=== PATIENT | female | born 1950 | race Caucasian/White ===

== ENCOUNTER 2018-02-19 19:05 | Emergency (ER) | payer OTHER ==
--- OUTSIDE RECORDS SUMMARY | 2018-02-19 19:08 | XMS REPORT | Clinical Summary ---
:1950 Author Organization [facility] Address [address] [place] [address] Care Team Providers Name Role Phone Efe Hernandez MD Primary Care Provider Allergies Active Allergy Reactions Severity Noted Date Comments Penicillins 10/21/2017 As a baby Current Medications Prescription Sig. Disp. Refills Start Date End Date Status BYSTOLIC 10 mg Take 10 mg by 3 07/29/2017 Active tablet mouth every morning. zolpidem (AMBIEN) 5 TAKE 1 TABLET 2 09/11/2017 Active MG tablet BY MOUTH AT BEDTIME NEEDED FOR INSOMIA SPIRIVA WITH INHALE THE 3 08/18/2017 Active HANDIHALER 18 mcg CONTENTS OF 1 per inhalation CAPSULE BY capsule MOUTH DAILY morning LORAZepam (ATIVAN) Take 1 mg by Active 1 MG tablet mouth as needed. fluticasone Inhale 2 puffs Active (FLOVENT HFA) 110 every morning. mcg/actuation inhaler guaifenesin/pseudoe Take by mouth. Active phedrne HCl (MUCINEX D ORAL) disopyramide Take 150 mg by Active phosphate (NORPACE) mouth daily. 150 MG capsule verapamil sustained Take 180 mg by Active release (CALAN-SR) mouth nightly. 180 MG SR tablet pitavastatin Take 4 mg by Active calcium (LIVALO) 2 mouth nightly. mg tablet ezetimibe (ZETIA) Take 10 mg by Active 10 mg tablet mouth daily. acetaminophen-codei Take 1 tablet 0 09/29/2017 Discontinued ne (TYLENOL WITH by mouth every 8 CODEINE #3) 300-30 4 (four) mg per tablet hours. disopyramide Take 150 mg by Discontinued phosphate (NORPACE) mouth every 8 150 MG capsule morning. verapamil sustained Take 180 mg by Discontinued release (CALAN-SR) mouth nightly. 8 180 MG SR tablet pitavastatin Take 4 mg by Discontinued calcium (LIVALO) 4 mouth nightly. 8 mg tablet ezetimibe (ZETIA) Take 10 mg by Discontinued 10 mg tablet mouth nightly. 8 traMADol (ULTRAM) Take 50 mg by Discontinued 50 mg tablet mouth every 6 8 (six) hours as needed for moderate pain. aspirin (ECOTRIN) Take 1 tablet 30 tablet 0 11/04/2017 325 MG enteric (325 mg total) 8 coated tablet by mouth daily for 30 days. celecoxib Take 1 capsule 28 capsule 0 11/04/2017 (CeleBREX) 100 MG (100 mg total) 8 capsule by mouth 2 (two) times a day for 14 days. methocarbamol Take 1 tablet 60 tablet 0 11/04/2017 (ROBAXIN) 500 MG (500 mg total) 8 tablet by mouth 3 (three) times a day as needed for muscle spasms for up to 14 days. traMADol (ULTRAM) Take 2 tablets 60 tablet 0 11/04/2017 50 mg tablet (100 mg total) 8 by mouth every 6 (six) hours as needed for moderate pain for up to 14 days. HYDROcodone-acetami Take 1 tablet 40 tablet 0 11/06/2017 nophen (NORCO) by mouth every 8 5-325 mg per tablet 4 (four) hours as needed for moderate pain for up to 14 days. Max Daily Amount: 6 tablets traMADol (ULTRAM) Take 1 tablet 70 tablet 0 12/02/2017 50 mg tablet (50 mg total) 8 by mouth every 4 (four) hours as needed for moderate pain for up to 30 days. traMADol (ULTRAM) Take 1 tablet 70 tablet 0 2018 50 mg (50 mg total) 8 tabletIndications: by mouth every Right elbow pain 4 (four) hours as needed for moderate pain for up to 30 days. methocarbamol Take 1 tablet 120 tablet 0 2018 (ROBAXIN) 500 MG (500 mg total) 8 tabletIndications: by mouth 4 Right elbow pain (four) times a day for 30 days. traMADol (ULTRAM) Take 1 tablet 70 tablet 0 01/13/2018 50 mg (50 mg total) 8 tabletIndications: by mouth every Right elbow pain 4 (four) hours as needed for moderate pain for up to 30 days. methocarbamol Take 1 tablet 120 tablet 0 01/13/2018 (ROBAXIN) 500 MG (500 mg total) 8 tabletIndications: by mouth 4 Right elbow pain (four) times a day for 30 days. 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 Encounters Date Type Specialty Care Team Description 02/06/2018 Abstract Orthopedic Surgery Naresh Haskins MD 02/02/2018 Office Visit Orthopedic Surgery Naresh Haskins, Left elbow pain (Primary Dx) 02/02/2018 Ancillary Orders Orthopedic Surgery Naresh Haskins Left elbow pain 01/13/2018 Orders Only Orthopedic Surgery Gianni Right elbow pain REBECCA Hennessy (Primary Dx) 2018 Orders Only Orthopedic Surgery Gianni, Right elbow pain REBECCA Hennessy (Primary Dx) 2018 Telephone Orthopedic Naresh Nugent MD 12/17/2017 Office Visit Orthopedic Surgery Naresh Haskins, Right elbow pain (Primary Dx); Arthritis of elbow, right 12/05/2017 Telephone Orthopedic Surgery Minoo Archer MA 12/02/2017 Telephone Orthopedic Naresh Nugent MD 12/02/2017 Orders Only Orthopedic Surgery Minoo Archer MA 12/01/2017 Telephone Orthopedic Naresh Nugent MD 12/01/2017 Telephone Orthopedic Naresh Nugent MD 11/25/2017 Abstract Orthopedic Naresh Nugent MD 11/24/2017 Telephone Orthopedic Naresh Nugent MD 11/19/2017 Telephone Orthopedic Naresh Nugent MD 11/17/2017 Office Visit Orthopedic Surgery Naresh Haskins, Right elbow pain (Primary Dx); Left elbow pain; Arthritis of elbow, right 11/17/2017 Ancillary Orders Orthopedic Surgery Naresh Haskins, Left elbow pain 11/11/2017 Abstract Orthopedic Surgery Naresh Haskins MD 11/10/2017 Abstract Orthopedic Surgery Naresh Haskins MD 11/10/2017 Abstract Orthopedic Surgery Naresh Haskins MD 11/06/2017 Patient Outreach Yane Eduardo RN 11/03/2017 - Hospital Encounter Orthopedic Surgery Naresh Haskins, Arthritis of elbow, 11/06/2017 Jamey Monsalve MD 11/03/2017 Anesthesia Event Orthopedic Surgery Marvin Lancaster MD 11/03/2017 Procedure Pass Orthopedic Surgery 11/03/2017 Surgery Orthopedic Surgery Naresh Haskins, ARTHROPLASTY, ELBOW, MD TOTAL 10/30/2017 Procedure Pass Orthopedic Surgery 10/29/2017 Telephone Orthopedic Surgery Minoo Archer MA 10/29/2017 Abstract Orthopedic Surgery Naresh Haskins MD 10/29/2017 Abstract Orthopedic Surgery Naresh Haskins MD 10/29/2017 Telephone Orthopedic Surgery Minoo Archer MA 10/24/2017 Hospital Encounter Radiology Naresh Haskins, Preop examination 10/24/2017 Pre-Admit Testing Pre-Admission Naresh Haskins, Pre-op testing Appointment Testing (Primary Dx) 10/24/2017 Telephone Orthopedic Surgery Naresh Haskins MD 10/24/2017 Transcribe Orders Access Naresh Haskins, Preop examination (Primary Dx) 10/23/2017 Procedure Pass Orthopedic Surgery 10/14/2017 Abstract Orthopedic Surgery Naresh Haskins MD 10/08/2017 Office Visit Orthopedic Surgery Naresh Haskins, Arthritis of right MD elbow (Primary Dx) 06/23/2017 Transcribe Orders Matt Crawford obliterative HMD Rosanna bronchiolitis (Primary Dx) after 02/18/2017 Family History Medical History Relation Name Comments Heart disease Father Hypertension Mother Diabetes Sister Relation Name Status Comments Father Mother Sister Alive Social History Tobacco Use Types Packs/Day Years Used Date Never Smoker Smokeless Tobacco: Never Used Alcohol Use Drinks/Week oz/Week Comments Yes 7 Glasses of wine 4.2 Sex Assigned at Date Recorded Not on file Last Filed Vital Signs Vital Sign Reading Time Taken Blood Pressure 143/84 11/06/2017 8:02 AM CDT Pulse 82 11/06/2017 8:02 AM CDT Temperature 35.7 C (96.3 F) 11/06/2017 8:02 AM CDT Respiratory Rate 16 11/06/2017 8:02 AM CDT Oxygen Saturation 98% 11/06/2017 8:02 AM CDT Inhaled Oxygen Concentration - - Weight 57.2 kg (126 lb 2 oz) 11/03/2017 6:58 AM CDT Height 162.6 cm (5' 4") 11/03/2017 6:58 AM CDT Body Mass Index 21.65 11/03/2017 6:58 AM CDT Plan of Treatment Health Maintenance Due Date Last Done Comments BREAST CANCER SCREENING 1999 COLON CANCER SCREENING 1999 SHINGRIX VACCINE (#1) 1999 ZOSTER VACCINE 2009 PNEUMOCOCCAL POLYSACCHARIDE VACCINE AGE 65 AND OVER 2014 PNEUMOCOCCAL-13 2014 INFLUENZA VACCINE 02/11/2018 Implants Implanted Type Area Tube Test Technician Device Expiration Model / Identifier Date Serial / Lot Component Humrl Total Elbw Sys Sm 4in [place] Herbierey - [id number] Distal Joint N/A: N/A [employer] 08/13/2022 [id number] / Implanted: Qty: 1 on 11/03/2017 by Naresh Haskins MD Orthopedic / Implants [id number] C/M Ulna Assembly 3in Xsml Rt - [id number] IMPLANT Right: [employer] 10/11/2022 [id number] / Implanted: Qty: 1 on 11/03/2017 by Naresh Haskins MD DEVICES Humerus / [id number] Cement Bone Full-Dose Premxd W/ Tobr Simplex P Pack 10/Ea - [id number] Surgical Bone Right: GIULIA 04/12/2019 [id number] / Implanted: 11/03/2017 (Quantity not on file) Cement Humerus ORTHOPEDICS / HIPS-KNEES [id number] Cement Bone Full-Dose Premxd W/ Tobr Simplex P Pack 10/Ea - [id number] Surgical Bone Right: GIULIA 04/12/2019 [id number] / Implanted: 11/03/2017 (Quantity not on file) Cement Humerus ORTHOPEDICS / HIPS-KNEES [id number] Procedures Procedure Name Priority Date/Time Associated Comments Diagnosis ESTIMATED GFR Routine 11/06/2017 4:26 Results for this AM CDT procedure are in the results section. B NATRIURETIC PEPTIDE Routine 11/06/2017 4:26 Results for this AM CDT procedure are in the results section. BASIC METABOLIC PANEL Routine 11/06/2017 4:26 Results for this AM CDT procedure are in the results section. PROTHROMBIN TIME WITH Routine 11/06/2017 4:26 Results for this INR AM CDT procedure are in the results section. PARTIAL THROMBOPLASTIN Routine 11/06/2017 4:26 Results for this TIME (PTT) AM CDT procedure are in the results section. BASIC METABOLIC PANEL Routine 11/05/2017 3:00 Results for this PM CDT procedure are in the results section. ESTIMATED GFR Routine 11/05/2017 3:00 Results for this PM CDT procedure are in the results section. ESTIMATED GFR Routine 11/05/2017 4:57 Results for this AM CDT procedure are in the results section. MAGNESIUM LEVEL Routine 11/05/2017 4:57 Results for this AM CDT procedure are in the results section. B NATRIURETIC PEPTIDE Routine 11/05/2017 4:57 Results for this AM CDT procedure are in the results section. PROTHROMBIN TIME WITH Routine 11/05/2017 4:57 Results for this INR AM CDT procedure are in the results section. PARTIAL THROMBOPLASTIN Routine 11/05/2017 4:57 Results for this TIME (PTT) AM CDT procedure are in the results section. BASIC METABOLIC PANEL Routine 11/05/2017 4:57 Results for this AM CDT procedure are in the results section. CBC WITH PLATELET AND Routine 11/05/2017 4:57 Results for this DIFFERENTIAL AM CDT procedure are in the results section. ESTIMATED GFR STAT 11/04/2017 10:34 Results for this PM CDT procedure are in the results section. BASIC METABOLIC PANEL STAT 11/04/2017 10:34 Results for this PM CDT procedure are in the results section. CT HEAD WO CONTRAST STAT 11/04/2017 10:23 Results for this PM CDT procedure are in the results section. ESTIMATED GFR STAT 11/04/2017 6:01 Results for this PM CDT procedure are in the results section. BASIC METABOLIC PANEL STAT 11/04/2017 6:01 Results for this PM CDT procedure are in the results section. ESTIMATED GFR Routine 11/04/2017 1:00 Results for this PM CDT procedure are in the results section. BASIC METABOLIC PANEL Routine 11/04/2017 1:00 Results for this PM CDT procedure are in the results section. OSMOLALITY, URINE Routine 11/04/2017 12:05 Results for this PM CDT procedure are in the results section. SODIUM LEVEL, URINE, Routine 11/04/2017 12:05 Results for this RANDOM PM CDT procedure are in the results section. ESTIMATED GFR Routine 11/04/2017 4:00 Results for this AM CDT procedure are in the results section. B NATRIURETIC PEPTIDE Routine 11/04/2017 4:00 Results for this AM CDT procedure are in the results section. PROTHROMBIN TIME WITH Routine 11/04/2017 4:00 Results for this INR AM CDT procedure are in the results section. PARTIAL THROMBOPLASTIN Routine 11/04/2017 4:00 Results for this TIME (PTT) AM CDT procedure are in the results section. BASIC METABOLIC PANEL Routine 11/04/2017 4:00 Results for this AM CDT procedure are in the results section. CBC WITH PLATELET AND Routine 11/04/2017 4:00 Results for this DIFFERENTIAL AM CDT procedure are in the results section. SURGICAL PATHOLOGY Routine 11/03/2017 10:07 Results for this REQUEST AM CDT procedure are in the results section. OH AN PERIPHERAL BLOCK Routine 11/03/2017 8:01 POST-OP PAIN AM CDT Procedure Note - Phill Natarajan MD - 11/03/2017 8:01 AM CDT Peripheral Block Performed by: PHILL NATARAJAN Authorized by: PHILL NATARAJAN Patient Location: Block room Start Time: 11/03/2017 7:32 AM End Time: 11/03/2017 7:41 AM Reason for Block: at surgeon's request, post-op pain management Staff: Anesthesiologist: PHILL NATARAJAN Performed by: Anesthesiologist Preprocedure: patient identified, IV checked, site and side verified, risks and benefits discussed, procedure verified, surgical consent complete, patient position confirmed, monitors and equipment checked, pre-op evaluation complete and site marked Time Out Performed: 11/03/2017 7:25 AM Peripheral Nerve Block: Patient Position: Supine Prep: ChloraPrep and patient draped Monitoring: Blood pressure monitoring, continuous pulse oximetry and heart rate Block Type: Supraclavicular Laterality: Right Injection Technique: Catheter insertion Procedures: ultrasound guided Ultrasound documentation: Images saved on hard disk, images saved on portable media, still images obtained and printed/placed in chart Local Infiltration (See MAR for details): Ropivacaine Needle: Needle Type: Pajunk Needle Gauge: 19 G Needle Length: 10 cm Catheter at Skin Depth: 6 cm Assessment: Injection Assessment: Visualized needle/local anesthetic surrounding nerve , visualized pertinent vascular structures and nerves, needle tip visualized at all times during injection of medication, intermittent aspiration during local anesthetic administration and no symptoms of intraneural/intravenous injection Paresthesia Pain: Immediately resolved Heart Rate Change: No Slow Fractionated Injection: Yes Block outcome: No apparent complications, patient comfortable and patient tolerated procedure well Notes: Pt converseing throughout with transietn paresthesia with passing of catheter immediately resolved ARTHROPLASTY, ELBOW, TOTAL 11/03/2017 7:30 AM CDT Arthritis of elbow, right Special Needs GEN REG BLOCK, SUPINE MICHAEL BIOMET TYPE AND SCREEN Routine 11/03/2017 6:20 AM Results for this CDT procedure are in the results section. POC GLUCOSE Routine 11/03/2017 6:18 AM Results for this CDT procedure are in the results section. XR CHEST 2 VW Routine 10/24/2017 11:53 AM Preop examination Results for this CDT procedure are in the results section. ECG PRE/POST OP Routine 10/24/2017 10:58 AM Pre-op testing Results for this CDT procedure are in the results section. ESTIMATED GFR Routine 10/24/2017 10:31 AM Results for this CDT procedure are in the results section. URINALYSIS SCREEN AND Routine 10/24/2017 10:31 AM Pre-op testing Results for this MICROSCOPY, WITH REFLEX CDT procedure are in TO CULTURE the results section. HEMOGLOBIN A1C Routine 10/24/2017 10:31 AM Pre-op testing Results for this CDT procedure are in the results section. PROTHROMBIN TIME WITH Routine 10/24/2017 10:31 AM Pre-op testing Results for this INR CDT procedure are in the results section. PARTIAL THROMBOPLASTIN Routine 10/24/2017 10:31 AM Pre-op testing Results for this TIME (PTT) CDT procedure are in the results section. COMPREHENSIVE METABOLIC Routine 10/24/2017 10:31 AM Pre-op testing Results for this PANEL CDT procedure are in the results section. HC COMPLETE BLD COUNT Routine 10/24/2017 10:31 AM Pre-op testing Results for this W/AUTO DIFF CDT procedure are in the results section. URINE CULTURE Routine 10/24/2017 10:30 AM Results for this CDT procedure are in the results section. after 02/18/2017 Results Estimated GFR (11/06/2017 4:26 AM)Only the most recent of8 resultswithin the time period is included. GFR Non Af Amer >90 mL/min/1.73 m2 [facility] DEPARTMENT OF PATHOLOGY AND [employer] MEDICINE GFR Af Amer >90 mL/min/1.73 m2 [facility] DEPARTMENT OF Comment: PATHOLOGY AND [facility] Chronic kidney disease: <60 mL/min/1.73m2 MEDICINE Kidney failure: <15 mL/min/1.73m2 The estimated GFR is calculated from the IDMS-traceable Modification of Diet in Renal Disease Equation. The accuracy of the calculation is poor when the creatinine is normal. Calculated values >90 mL/min/1.73m2 are not reported. This equation has not been validated in children (<18 years), women, the elderly (>70 years), or ethnic groups other than Caucasians and Americans. Specimen Plasma specimen Performing Organization Address City/State/[facility] Phone Number [facility] DEPARTMENT OF PATHOLOGY AND [address] [place] [address] Partial thromboplastin time, activated (11/06/2017 4:26 AM)Only the most recent of4 resultswithin the time period is included. PTT 29.6 23.0 - 36.0 sec [facility] DEPARTMENT OF PATHOLOGY Comment: AND [employer] MEDICINE PTT therapeutic range for unfractionated heparin is 61.0-112.0 seconds which corresponds to Anti-Xa 0.3-0.7 U/ml. Specimen Blood Performing Organization Address City/[facility]/Zipcode Phone Number [facility] DEPARTMENT OF PATHOLOGY AND [address] [place] [phone] [facility] Prothrombin time with INR (11/06/2017 4:26 AM)Only the most recent of4 resultswithin the time period is included. Prothrombin time 13.5 12.0 - 15.0 sec [facility] DEPARTMENT OF PATHOLOGY AND [employer] MEDICINE INR 1.0 [facility] DEPARTMENT OF Comment: PATHOLOGY AND GENOMIC The International Normalized Ratio (INR) is a therapeutic MEDICINE monitoring tool for patients who are stable on oral anticoagulant therapy. An INR of 2.0-3.0 is suggested for deep vein thrombosis/pulmonary embolism. Specimen Blood Performing Organization Address [facility] Phone Number [facility] DEPARTMENT OF PATHOLOGY AND [address] [place] [address] B natriuretic peptide (11/06/2017 4:26 AM)Only the most recent of3 resultswithin the time period is included. BNP 391 (H) 0 - 100 pg/mL [facility] DEPARTMENT OF PATHOLOGY AND GENOMIC MEDICINE Specimen Blood Performing Organization Address [facility] Centercode Phone Number [facility] DEPARTMENT OF PATHOLOGY AND [address] [place] [address] Basic metabolic panel (11/06/2017 4:26 AM)Only the most recent of7 resultswithin the time period is included. Sodium 133 (L) 135 - 148 mEq/L [facility] DEPARTMENT OF PATHOLOGY AND GENOMIC MEDICINE Potassium 3.9 3.5 - 5.0 mEq/L [facility] DEPARTMENT OF PATHOLOGY AND GENOMIC MEDICINE Chloride 96 (L) 98 - 112 mEq/L [facility] DEPARTMENT OF PATHOLOGY AND GENOMIC MEDICINE CO2 28 24 - 31 mEq/L [facility] DEPARTMENT OF PATHOLOGY AND GENOMIC MEDICINE Anion gap 9 7 - 15 mEq/L [facility] DEPARTMENT OF PATHOLOGY Comment: AND [facility] Starting from October , anion gap calculation no longer incorporates potassium. Please note the change. BUN 10 8 - 23 mg/dL [facility] DEPARTMENT OF PATHOLOGY AND GENOMIC MEDICINE Creatinine 0.6 0.5 - 0.9 mg/dL [facility] DEPARTMENT OF PATHOLOGY AND GENOMIC MEDICINE Glucose 109 (H) 65 - 99 mg/dL [facility] DEPARTMENT OF PATHOLOGY AND GENOMIC MEDICINE Calcium 8.8 8.8 - 10.2 mg/dL [facility] DEPARTMENT OF PATHOLOGY AND GENOMIC MEDICINE Specimen Plasma specimen Performing Organization Address [facility] Phone Number [facility] DEPARTMENT OF PATHOLOGY AND [address] [place] [address] CBC with platelet and differential (11/05/2017 4:57 AM)Only the most recent of3 resultswithin the time period is included. WBC 8.48 4.50 - 11.00 k/uL [facility] DEPARTMENT OF PATHOLOGY AND GENOMIC MEDICINE RBC 3.26 (L) 4.20 - 5.50 m/uL [facility] DEPARTMENT OF PATHOLOGY AND GENOMIC MEDICINE HGB 11.5 (L) 12.0 - 16.0 g/dL [facility] DEPARTMENT OF PATHOLOGY AND GENOMIC MEDICINE HCT 33.1 (L) 37.0 - 47.0 % [facility] DEPARTMENT OF PATHOLOGY AND GENOMIC MEDICINE MCV 101.5 (H) 82.0 - 100.0 fL [facility] DEPARTMENT OF PATHOLOGY AND GENOMIC MEDICINE MCH 35.3 (H) 27.0 - 34.0 pg [facility] DEPARTMENT OF PATHOLOGY AND GENOMIC MEDICINE MCHC 34.7 31.0 - 37.0 g/dL [facility] DEPARTMENT OF PATHOLOGY AND GENOMIC MEDICINE RDW - SD 49.1 37.0 - 55.0 fL [facility] DEPARTMENT OF PATHOLOGY AND GENOMIC MEDICINE MPV 9.5 8.8 - 13.2 fL [facility] DEPARTMENT OF PATHOLOGY AND GENOMIC MEDICINE Platelet count 207 150 - 400 k/uL [facility] DEPARTMENT OF PATHOLOGY AND GENOMIC MEDICINE Nucleated RBC 0.00 /100 WBC [facility] DEPARTMENT OF PATHOLOGY AND GENOMIC MEDICINE Neutrophils 78.4 (H) 39.0 - 69.0 % [facility] DEPARTMENT OF PATHOLOGY AND GENOMIC MEDICINE Lymphocytes 12.0 (L) 25.0 - 45.0 % [facility] DEPARTMENT OF PATHOLOGY AND GENOMIC MEDICINE Monocytes 8.8 0.0 - 10.0 % [facility] DEPARTMENT OF PATHOLOGY AND GENOMIC MEDICINE Eosinophils 0.2 0.0 - 5.0 % [facility] DEPARTMENT OF PATHOLOGY AND GENOMIC MEDICINE Basophils 0.2 0.0 - 1.0 % [facility] DEPARTMENT OF PATHOLOGY AND GENOMIC MEDICINE Immature granulocytes 0.4Comment: 0.0 - 1.0 % [facility] DEPARTMENT OF "Immature PATHOLOGY AND GENOMIC granulocytes" MEDICINE (promyelocytes, myelocytes, metamyelocytes) Specimen Blood Performing Organization Address City/[facility]ercode Phone Number [facility] DEPARTMENT OF PATHOLOGY AND [address] [place] [phone] [facility] Magnesium level (11/05/2017 4:57 AM) Magnesium 1.7 1.6 - 2.4 mg/dL [facility] DEPARTMENT OF PATHOLOGY AND GENOMIC MEDICINE Specimen Plasma specimen Performing Organization Address City/[facility] Centercode Phone Number [facility] DEPARTMENT OF PATHOLOGY AND [address] [place] [phone] [facility] CT Head Wo Contrast (11/04/2017 10:23 PM) Narrative Performed At EXAMINATION:CT HEAD WO CONTRAST HM RADIANT CLINICAL HISTORY:confusion COMPARISON:None. TECHNIQUE: Noncontrast head CT performed using radiation dose reduction techniques.Technical factors are evaluated and adjusted to ensure appropriate moderation of exposure.Automated dose management technology is applied to adjust radiation exposure while achieving a diagnostic quality image. FINDINGS: No evidence of acute intracranial hemorrhage, mass, mass effect, midline shift, or acute infarct. Minimal suspected chronic microvascular ischemic changes within the supratentorial white matter. The ventricles are normal in size and configuration for age. Mild to moderate global cerebral andcerebellar volume loss. Arteriosclerosis of the cavernous and paraclinoid internal carotid arteries. Basal cisterns are clear. Calvarium is intact. Orbits are normal in appearance. No significant sinus inflammatory changes. Small left mastoid tip effusion. IMPRESSION: 1. No CT evidence of acute intracranial abnormality. [id number] Procedure Note Interface, Radiology Results Incoming - 11/04/2017 10:30 PM CDT EXAMINATION: CT HEAD WO CONTRAST CLINICAL HISTORY: confusion COMPARISON: None. TECHNIQUE: Noncontrast head CT performed using radiation dose reduction techniques. Technical factors are evaluated and adjusted to ensure appropriate moderation of exposure. Automated dose management technology is applied to adjust radiation exposure while achieving a diagnostic quality image. FINDINGS: No evidence of acute intracranial hemorrhage, mass, mass effect, midline shift , or acute infarct. Minimal suspected chronic microvascular ischemic changes within the supratentorial white matter. The ventricles are normal in size and configuration for age. Mild to moderate global cerebral and cerebellar volume loss. Arteriosclerosis of the cavernous and paraclinoid internal carotid arteries. Basal cisterns are clear. Calvarium is intact. Orbits are normal in appearance. No significant sinus inflammatory changes. Small left mastoid tip effusion. IMPRESSION: 1. No CT evidence of acute intracranial abnormality. [facility]-[id number] Performing Organization Address [facility] Phone Number [facility] [address] [place] [address] Sodium level, urine, random (11/04/2017 12:05 PM) Sodium, urine, random 105 mEq/L [facility] DEPARTMENT OF PATHOLOGY AND GENOMIC MEDICINE Specimen Urine Performing Organization Address [facility] Phone Number [facility] DEPARTMENT OF PATHOLOGY AND [address] [place] [phone] GENOMIC MEDICINE Osmolality, urine (11/04/2017 12:05 PM) Osmolality, urine 333 50 - 1,400 mOsm/kg [facility] DEPARTMENT OF PATHOLOGY AND GENOMIC MEDICINE Specimen Urine Performing Organization Address [facility]/State/Zipcode Phone Number [facility] DEPARTMENT OF PATHOLOGY AND [address] [place] [address] GENOMIC [facility] Surgical pathology request (11/03/2017 10:07 AM) [facility] DEPARTMENT OF PATHOLOGY AND GENOMIC MEDICINE Surgical pathology report See link below for PDF [facility] DEPARTMENT OF Lab Report PATHOLOGY AND GENOMIC MEDICINE Result status This is Final Report to [facility] DEPARTMENT OF [id number] PATHOLOGY AND GENOMIC MEDICINE Performing Organization Address City/[facility] Phone Number [facility] DEPARTMENT OF PATHOLOGY AND [address] [place] [address] GENOMIC MEDICINE Type and screen (11/03/2017 6:20 AM) ABO grouping AB [facility] DEPARTMENT OF PATHOLOGY AND GENOMIC MEDICINE Rh type POS [facility] DEPARTMENT OF PATHOLOGY AND GENOMIC MEDICINE Antibody screen (gel) NEG [facility] DEPARTMENT OF PATHOLOGY AND GENOMIC MEDICINE Specimen Blood Performing Organization Address [facility] Phone Number [facility] DEPARTMENT OF PATHOLOGY AND [address] [place] [address] MEDICINE POC glucose (11/03/2017 6:18 AM) POC glucose 83 65 - 99 mg/dL [facility] DEPARTMENT OF PATHOLOGY Comment: AND GENOMIC MEDICINE [facility] Notified RN Meter ID: [id number] Information Technology Project Manager: Win Agrawal Performing Organization Address [facility] Phone Number [facility] DEPARTMENT OF PATHOLOGY AND [address] [place] [address] XR Chest 2 Vw (10/24/2017 11:53 AM) Narrative Performed At EXAMINATION:XR CHEST 2 VW [facility] CLINICAL HISTORY:Z01.818 Encounter for other preprocedural examination, Preop COMPARISON:None. IMPRESSION: Frontal and lateral views reveal a normal cardiomediastinal silhouette, apart from a tortuous atherosclerotic aorta. Lungs without a consolidative process. However, the lung volumes are increased with flattened hemidiaphragms consistent with COPD changes. Bilateral shoulder calcifications are seen measuring 3.7 cm on the left and 9 mm on the right suggestive of intra-articular bodies. The remainder of the examination is unremarkable. [facility]-[id number] Procedure Note Hm Interface, Radiology Results Incoming - 10/24/2017 11:58 AM CDT EXAMINATION: XR CHEST 2 VW CLINICAL HISTORY: Z01.818 Encounter for other preprocedural examination, Preop COMPARISON: None. IMPRESSION: Frontal and lateral views reveal a normal cardiomediastinal silhouette, apart from a tortuous atherosclerotic aorta. Lungs without a consolidative process. However, the lung volumes are increased with flattened hemidiaphragms consistent with COPD changes. Bilateral shoulder calcifications are seen measuring 3.7 cm on the left and 9 mm on the right suggestive of intra-articular bodies. The remainder of the examination is unremarkable. [facility]-[id number] Performing Organization Address [facility] Phone Number [facility] [address] [place] [address] ECG Pre/Post Op (10/24/2017 10:58 AM) Ventricular rate 75 [facility] MUSE Atrial rate 75 [facility] MUSE OH interval 158 [facility] MUSE QRSD interval 98 [facility] QT interval 422 [facility] QTC interval 471 [facility] MUSE P axis 1 58 [facility] MUSE QRS axis 1 71 [facility] MUSE T wave axis 69 [facility] MUSE EKG impression Normal sinus rhythm-Possible Left atrial [facility] MUSE enlargement-ST abnormality, possible digitalis effect-Abnormal ECG-No previous ECGs available- Performing Organization Address [facility] Phone Number [facility] MUSE [address] [place] [address] Urinalysis screen and microscopy, with reflex to culture (10/24/2017 10:31 AM) Specimen site Clean catch [facility] DEPARTMENT OF PATHOLOGY AND GENOMIC MEDICINE Color, UA Yellow [facility] DEPARTMENT OF PATHOLOGY AND GENOMIC MEDICINE Appearance, UA Clear [facility] DEPARTMENT OF PATHOLOGY AND GENOMIC MEDICINE Specific gravity, UA 1.019 1.001 - 1.035 [facility] DEPARTMENT OF PATHOLOGY AND GENOMIC MEDICINE pH, UA 5.5 5.0 - 8.5 [facility] DEPARTMENT OF PATHOLOGY AND GENOMIC MEDICINE Protein, UA Negative Negative [facility] DEPARTMENT OF PATHOLOGY AND GENOMIC MEDICINE Glucose, UA Negative Negative [facility] DEPARTMENT OF PATHOLOGY AND GENOMIC MEDICINE Ketones, UA Trace (A) Negative [facility] DEPARTMENT OF PATHOLOGY AND GENOMIC MEDICINE Bilirubin, UA Negative Negative [facility] DEPARTMENT OF PATHOLOGY AND GENOMIC MEDICINE Blood, UA Small (A) Negative [facility] DEPARTMENT OF PATHOLOGY AND GENOMIC MEDICINE Nitrite, UA Negative Negative [facility] DEPARTMENT OF PATHOLOGY AND GENOMIC MEDICINE Urobilinogen, UA <2.0 <2.0 [facility] DEPARTMENT OF PATHOLOGY AND GENOMIC MEDICINE Leukocyte esterase, UA Negative Negative [facility] DEPARTMENT OF PATHOLOGY AND GENOMIC MEDICINE Epithelial cells, UA 5 /HPF [facility] DEPARTMENT OF PATHOLOGY AND GENOMIC MEDICINE Round epithelial cells, UA <1 0 - 1 /HPF [facility] DEPARTMENT OF PATHOLOGY AND GENOMIC MEDICINE WBC, UA 1 0 - 4 /HPF [facility] DEPARTMENT OF PATHOLOGY AND GENOMIC MEDICINE RBC, UA 1 0 - 5 /HPF [facility] DEPARTMENT OF PATHOLOGY AND GENOMIC MEDICINE Bacteria, UA Few None seen [facility] DEPARTMENT OF PATHOLOGY AND GENOMIC MEDICINE Yeast, UA None seen [facility] DEPARTMENT OF PATHOLOGY AND GENOMIC MEDICINE Yeast with pseudohyphae, UA None seen [facility] DEPARTMENT OF PATHOLOGY AND GENOMIC MEDICINE Hyaline casts, UA >20 (A) /LPF [facility] DEPARTMENT OF PATHOLOGY AND GENOMIC MEDICINE Specimen Urine Performing Organization Address City/State/Zipcode Phone Number [facility] DEPARTMENT OF PATHOLOGY AND [address] [place] [address] [facility] Hemoglobin A1c (10/24/2017 10:31 AM) Hemoglobin A1C 5.1 4.0 - 5.6 % [facility] DEPARTMENT OF PATHOLOGY Comment: [facility] HbA1c cutoffs for diagnosing diabetes: 4.0% - 5.6%=normal 5.7% - 6.4%=increased risk for diabetes (prediabetes) >=6.5%=diabetes Goals for glycemic control (ADA 2016) < 7.0%Target for non adults with diabetes. More or less stringent targets may be appropriate for individual patients. <7.5% Target for Children and adolescents with type 1 diabetes. Specimen Blood Performing Organization Address City/[facility]/Zipcode Phone Number [facility] DEPARTMENT OF PATHOLOGY AND [address] [place] [address] [facility] Comprehensive metabolic panel (10/24/2017 10:31 AM) Sodium 137 135 - 148 mEq/L [facility] DEPARTMENT OF PATHOLOGY AND GENOMIC MEDICINE Potassium 4.6 3.5 - 5.0 mEq/L [facility] DEPARTMENT OF PATHOLOGY AND GENOMIC MEDICINE Chloride 99 98 - 112 mEq/L [facility] DEPARTMENT OF PATHOLOGY AND GENOMIC MEDICINE CO2 24 24 - 31 mEq/L [facility] DEPARTMENT OF PATHOLOGY AND GENOMIC MEDICINE Anion gap 14 7 - 15 mEq/L [facility] DEPARTMENT OF Comment: PATHOLOGY AND GENOMIC Starting from October , anion gap calculation MEDICINE no longer incorporates potassium. Please note the change. BUN 7 (L) 8 - 23 mg/dL [facility] DEPARTMENT OF PATHOLOGY AND GENOMIC MEDICINE Creatinine 0.5 0.5 - 0.9 mg/dL [facility] DEPARTMENT OF PATHOLOGY AND GENOMIC MEDICINE Glucose 76 65 - 99 mg/dL [facility] DEPARTMENT OF PATHOLOGY AND GENOMIC MEDICINE Calcium 9.4 8.8 - 10.2 mg/dL [facility] DEPARTMENT OF PATHOLOGY AND GENOMIC MEDICINE Protein 7.1 6.3 - 8.3 g/dL [facility] DEPARTMENT OF Comment: PATHOLOGY AND GENOMIC [place] 4.6-7.0 g/dL MEDICINE 1 week 4.4-7.6 g/dL 7 months-1year5.1-7.3 g/dL 1-2 years5.6-7.5 g/dL >3 years6.0-8.0 g/dL 18-150 6.3-8.3 g/dL Albumin 3.9 3.5 - 5.0 g/dL [facility] DEPARTMENT OF PATHOLOGY AND GENOMIC MEDICINE A/G ratio 1.2 0.7 - 3.8 [facility] DEPARTMENT OF PATHOLOGY AND GENOMIC MEDICINE Alkaline phosphatase 57 35 - 104 U/L [facility] DEPARTMENT OF PATHOLOGY AND GENOMIC MEDICINE AST 42 (H) 10 - 35 U/L [facility] DEPARTMENT OF PATHOLOGY AND GENOMIC MEDICINE ALT 34 5 - 50 U/L [facility] DEPARTMENT OF PATHOLOGY AND GENOMIC MEDICINE Total bilirubin 0.6 0.0 - 1.2 mg/dL [facility] DEPARTMENT OF PATHOLOGY AND GENOMIC MEDICINE Specimen Plasma specimen Performing Organization Address City/[facility] Phone Number [facility] DEPARTMENT OF PATHOLOGY AND [address] [place] [address] GENOMIC MEDICINE Urine culture (10/24/2017 10:30 AM) Urine culture SEE COMMENTComment: Bacteriuria [facility] DEPARTMENT OF PATHOLOGY screen negative. AND GENOMIC MEDICINE Performing Organization Address City/State/Zipcode Phone Number [facility] DEPARTMENT OF PATHOLOGY AND [address] [place] [address] GENOMIC MEDICINE after 02/18/2017 Insurance Payer Benefit Plan / Group Subscriber ID Type Phone Address UHC MEDICARE [facility] xxxxxxxxx [facility] MEDICAID MEDICAID xxxxxxxxx Medicaid [phone] [place] [id number]
--- OUTSIDE RECORDS SUMMARY | 2018-02-19 19:09 | XMS REPORT | Clinical Summary ---
:1950 Author Organization [facility] Address [address] [place] [address] Phone Care Team Providers Name Role Phone Unavailable Primary Care Provider Unavailable Allergies Active Allergy Reactions Severity Noted Date Comments Penicillins 07/21/2013 TOLD SINCE CHILDHOOD THAT SHE IS ALLERGIC Current Medications Prescription Sig. Disp. Refills Start Date End Date Status montelukast (SINGULAIR) Take 10 mg by mouth Active 10 mg tablet nightly. LORazepam (ATIVAN) 1 MG Take 1 mg by mouth Active tablet as needed. zolpidem (AMBIEN) 10 mg Take 10 mg by mouth Active tablet every night as needed. rosuvastatin (CRESTOR) 20 Take 20 mg by mouth Active MG tablet daily. fluticasone (FLOVENT HFA) Inhale by mouth via Active 110 mcg/actuation inhaler inhaler 2 (two) times daily. Active Problems Problem Noted Date HOCM (hypertrophic obstructive cardiomyopathy) ([facility]) 07/21/2013 Hypertrophic cardiomyopathy ([facility]) 07/21/2013 Social History Tobacco Use Types Packs/Day Years Used Date Never Smoker Alcohol Use Drinks/Week oz/Week Comments Yes 14 Glasses of wine 8.4 Sex Assigned at Date Recorded Not on file Last Filed Vital Signs Not on file Plan of Treatment Not on file Results Not on fileafter 02/18/2017
[2018-02-19] MEDS ORDERED: HYDROCODONE/CHLORPHEN 5 ML/OSYR ONE (19:50)
[2018-02-19 20:56] LABS: BUN Blood Urea Nitrogen 8 mg/dL (7-18); Bicarbonate 27 mmol/L (21-32); Glucose Level 91 mg/dL (74-106); Potassium 4.4 mmol/L (3.5-5.1); Sodium Level 132 mmol/L (136-145)
--- NOTE | 2018-02-19 21:04 | ER ---
Nurse's Notes [facility] Name: Lucie Maldonado Age: 68 yrs Sex: Female : 1950 Arrival Date: 02/19/2018 Time: 19:06 Bed 27 Private MD: Efe Hernandez Diagnosis: Cough;Acute bronchitis Presentation: 02/19 19:16 Presenting complaint: Patient states: cough for 1 week. reports chest pain only during mg2 coughing,. Transition of care: patient was not received from another setting of care. Onset of symptoms was February 12, 2018. Risk Assessment: Do you want to hurt yourself or someone else? Patient reports no desire to harm self or others. Initial Sepsis Screen: Does the patient meet any 2 criteria? No. Patient's initial sepsis screen is negative. Does the patient have a suspected source of infection? No. Patient's initial sepsis screen is negative. Care prior to arrival: None. 19:16 Method Of Arrival: Ambulatory mg2 19:16 Acuity: CECILIA 4 mg2 Triage Assessment: 19:22 General: Appears in no apparent distress. comfortable, Behavior is calm, cooperative. mg2 Pain: Denies pain. EENT: No signs and/or symptoms were reported regarding the EENT system. Neuro: Level of Consciousness is awake, alert, obeys commands, Oriented to person, place, time, situation. Cardiovascular: Capillary refill < 3 seconds Patient's skin is warm and dry. Respiratory: Airway is patent Respiratory effort is even, unlabored, Respiratory pattern is regular, symmetrical, Breath sounds are clear bilaterally. in right upper lobe, left upper lobe, left posterior upper lobe, right posterior upper lobe, left posterior lower lobe, right posterior middle lobe and right posterior lower lobe. GI: No signs and/or symptoms were reported involving the gastrointestinal system. : No signs and/or symptoms were reported regarding the genitourinary system. Derm: Skin is intact, Skin is pink, warm \T\ dry. normal. Musculoskeletal: No signs and/or symptoms reported regarding the musculoskeletal system. Historical: - Allergies: 19:19 PENICILLINS; mg2 - Home Meds: 19:19 Disopyramide Phosphate Oral [Active]; Lorazepam Oral [Active]; Bystolic oral oral mg2 [Active]; Livalo oral oral [Active]; Verapamil Oral [Active]; - PMHx: 19:19 cardiomyopathy; COPD; Hypertension; mg2 - PSHx: 19:19 ablation; elbow surgery; mg2 - Immunization history:: Flu vaccine is not up to date. - Social history:: Smoking status: Patient/guardian denies using tobacco, Patient/guardian denies using alcohol, street drugs. - Ebola Screening: : No symptoms or risks identified at this time. Screenin:21 Abuse screen: Denies threats or abuse. Denies injuries from another. Abuse screen:. mg2 Nutritional screening: No deficits noted. Tuberculosis screening: No symptoms or risk factors identified. Fall Risk None identified. Assessment: 20:59 General: Appears in no apparent distress. comfortable. Pain: Denies pain. Neuro: Level mg2 of Consciousness is awake, alert, obeys commands, Oriented to person, place, time, situation. Cardiovascular: Capillary refill < 3 seconds Patient's skin is warm and dry. Respiratory: Reports cough that is non-productive, since 1 week Airway is patent Respiratory effort is even, unlabored, Respiratory pattern is regular, symmetrical, Breath sounds are clear bilaterally. in right upper lobe, left upper lobe, left posterior upper lobe, right posterior upper lobe, left posterior lower lobe, right posterior middle lobe and right posterior lower lobe. GI: No signs and/or symptoms were reported involving the gastrointestinal system. : No signs and/or symptoms were reported regarding the genitourinary system. EENT: No signs and/or symptoms were reported regarding the EENT system. Derm: Skin is intact, Skin is pink, warm \T\ dry. normal. Musculoskeletal: Circulation, motion, and sensation intact. Vital Signs: 19:20 BP 131 / 90; Pulse 100; Resp 18; Temp 98.5(O); Pulse Ox 100% on R/A; Weight 57.15 kg; mg2 Height 5 ft. 4 in. (162.56 cm); Pain 0/10; 20:47 BP 145 / 106; Pulse 89; Resp 18; Pulse Ox 100% on R/A; Pain 0/10; mg2 19:20 Body Mass Index 21.63 (57.15 kg, 162.56 cm) mg2 ED Course: 19:06 Patient arrived in ED. es 19:09 Efe Hernandez MD is Private Physician. es 19:16 Ankit Solano RN is Primary Nurse. mg2 19:17 Triage completed. mg2 19:21 Arm band placed on. mg2 19:21 Patient has correct armband on for positive identification. mg2 19:25 Deandre Soria PA is PHCP. jr8 19:25 Pramod Espinal MD is Attending Physician. jr8 20:04 XRAY Chest (1 view) In Process Unspecified. EDMS 21:01 No provider procedures requiring assistance completed. mg2 21:03 Efe Hernandez MD is Referral Physician. jr8 21:17 Patient did not have IV access during this emergency room visit. mg2 Administered Medications: 19:49 Drug: Tussionex Pennkinetic ER 5 ml Route: PO; mg2 21:05 Follow up: Response: No adverse reaction; Marked relief of symptoms mg2 Outcome: 21:04 Discharge ordered by . jr8 21:17 Discharged to home ambulatory, with family. mg2 21:17 Condition: good 21:17 Discharge instructions given to patient, family, Instructed on discharge instructions, follow up and referral plans. medication usage, Demonstrated understanding of instructions, follow-up care, medications, Prescriptions given X 2. 21:17 Patient left the ED. mg2 Signatures: Dispatcher [employer] EDID Iva Crowder Josh, PA PA jr8 Ankit Solano, RN RN mg2
--- NOTE | 2018-02-19 21:04 | EDPHYS ---
Physician Documentation [facility] Name: Lucie Maldonado Age: 68 yrs Sex: Female : 1950 Arrival Date: 02/19/2018 Time: 19:06 Bed 27 Private MD: Efe Hernandez ED Physician Pramod Espinal HPI: 02/19 20:08 This 68 yrs old Female presents to ER via Ambulatory with complaints of Chest jr8 Congestion, Cough, JOINT PAIN. 20:08 The patient or guardian reports cough, that is intermittent, described as moderate. jr8 Onset: The symptoms/episode began/occurred gradually, 1 week(s) ago. Severity of symptoms: At their worst the symptoms were moderate, in the emergency department the symptoms are unchanged. Modifying factors: The symptoms are alleviated by nothing, the symptoms are aggravated by nothing. Associated signs and symptoms: The patient has no apparent associated signs or symptoms. The patient has not experienced similar symptoms in the past. The patient has not recently seen a physician. Historical: - Allergies: 19:19 PENICILLINS; mg2 - Home Meds: 19:19 Disopyramide Phosphate Oral [Active]; Lorazepam Oral [Active]; Bystolic oral oral mg2 [Active]; Livalo oral oral [Active]; Verapamil Oral [Active]; - PMHx: 19:19 cardiomyopathy; COPD; Hypertension; mg2 - PSHx: 19:19 ablation; elbow surgery; mg2 - Immunization history:: Flu vaccine is not up to date. - Social history:: Smoking status: Patient/guardian denies using tobacco, Patient/guardian denies using alcohol, street drugs. - Ebola Screening: : No symptoms or risks identified at this time. ROS: 20:08 Eyes: Negative for injury, pain, redness, and discharge, ENT: Negative for injury, jr8 pain, and discharge, Neck: Negative for injury, pain, and swelling, Cardiovascular: Negative for chest pain, palpitations, and edema, Abdomen/GI: Negative for abdominal pain, nausea, vomiting, diarrhea, and constipation, Back: Negative for injury and pain, MS/Extremity: Negative for injury and deformity, Skin: Negative for injury, rash, and discoloration, Neuro: Negative for headache, weakness, numbness, tingling, and seizure. 20:08 Respiratory: Positive for cough, with no reported sputum, Negative for dyspnea on exertion, shortness of breath, sputum production, wheezing. Exam: 20:08 Eyes: Pupils equal round and reactive to light, extra-ocular motions intact. Lids and jr8 lashes normal. Conjunctiva and sclera are non-icteric and not injected. Cornea within normal limits. Periorbital areas with no swelling, redness, or edema. ENT: Nares patent. No nasal discharge, no septal abnormalities noted. Tympanic membranes are normal and external auditory canals are clear. Oropharynx with no redness, swelling, or masses, exudates, or evidence of obstruction, uvula midline. Mucous membranes moist. Neck: Trachea midline, no thyromegaly or masses palpated, and no cervical lymphadenopathy. Supple, full range of motion without nuchal rigidity, or vertebral point tenderness. No Meningismus. Cardiovascular: Regular rate and rhythm with a normal S1 and S2. No gallops, murmurs, or rubs. Normal PMI, no JVD. No pulse deficits. Respiratory: Lungs have equal breath sounds bilaterally, clear to auscultation and percussion. No rales, rhonchi or wheezes noted. No increased work of breathing, no retractions or nasal flaring. Abdomen/GI: Soft, non-tender, with normal bowel sounds. No distension or tympany. No guarding or rebound. No evidence of tenderness throughout. Back: No spinal tenderness. No costovertebral tenderness. Full range of motion. Skin: Warm, dry with normal turgor. Normal color with no rashes, no lesions, and no evidence of cellulitis. MS/ Extremity: Pulses equal, no cyanosis. Neurovascular intact. Full, normal range of motion. Neuro: Awake and alert, GCS 15, oriented to person, place, time, and situation. Cranial nerves II-XII grossly intact. Motor strength 5/5 in all extremities. Sensory grossly intact. Cerebellar exam normal. Normal gait. Vital Signs: 19:20 BP 131 / 90; Pulse 100; Resp 18; Temp 98.5(O); Pulse Ox 100% on R/A; Weight 57.15 kg; mg2 Height 5 ft. 4 in. (162.56 cm); Pain 0/10; 20:47 BP 145 / 106; Pulse 89; Resp 18; Pulse Ox 100% on R/A; Pain 0/10; mg2 19:20 Body Mass Index 21.63 (57.15 kg, 162.56 cm) mg2 MDM: 19:25 Patient medically screened. jr8 21:03 Data reviewed: vital signs, nurses notes, lab test result(s), radiologic studies, plain jr8 films, and as a result, I will discharge patient. Data interpreted: Pulse oximetry: on room air is 100 %. Interpretation: normal. Counseling: I had a detailed discussion with the patient and/or guardian regarding: the historical points, exam findings, and any diagnostic results supporting the discharge/admit diagnosis, lab results, radiology results, the need for outpatient follow up, a family practitioner, to return to the emergency department if symptoms worsen or persist or if there are any questions or concerns that arise at home. 02/19 19:58 Order name: Basic Metabolic Panel; Complete Time: 21:03 mg2 02/19 19:42 Order name: XRAY Chest (1 view); Complete Time: 21:14 jr8 Administered Medications: 19:49 Drug: Tussionex Pennkinetic ER 5 ml Route: PO; mg2 21:05 Follow up: Response: No adverse reaction; Marked relief of symptoms mg2 Disposition: 23:30 Co-signature as Attending Physician, Pramod Espinal MD. pkl Disposition: 02/19/18 21:04 Discharged to Home. Impression: Cough, Acute bronchitis. - Condition is Stable. - Discharge Instructions: Acute Bronchitis, Adult, Cough, Adult. - Prescriptions for Prednisone 20 mg Oral Tablet - take 1 tablet by ORAL route once daily for 5 days; 5 tablet. - Medication Reconciliation Form, Thank You Letter, Antibiotic Education, Prescription Opioid Use form. - Follow up: Efe Hernandez MD; When: 2 - 3 days; Reason: Recheck today's complaints, Continuance of care, Re-evaluation by your physician. - Problem is new. - Symptoms have improved. Signatures: Dispatcher [employer] EDMS Pramod Espinal MD MD pkl Deandre Soria PA PA jr8 Ankit Solano RN RN mg2 Corrections: (The following items were deleted from the chart) 21:17 21:04 02/19/2018 21:04 Discharged to Home. Impression: Cough; Acute bronchitis. mg2 Condition is Stable. Forms are Medication Reconciliation Form, Thank You Letter, Antibiotic Education, Prescription Opioid Use. Follow up: Efe Hernandez; When: 2 - 3 days; Reason: Recheck today's complaints, Continuance of care, Re-evaluation by your physician. Problem is new. Symptoms have improved. jr8
--- NOTE | 2018-02-19 21:08 | RAD REPORT ---
[facility] 8[facility]04 pm CLINICAL HISTORY: Chest pain COMPARISON: September 2012 FINDINGS: Bilateral sub centimeter lung nodules are without obvious change. However, evaluation is better seen on CT scan. A lung consolidation is not noted. The heart is normal size
== END 2018-02-19 21:17 | disposition home or self-care (01) ==
LOC: ER 19:05
DX: R05 Cough (principal); J20.9 Acute bronchitis, unspecified; Z88.0 Allergy status to penicillin; I42.9 Cardiomyopathy, unspecified; J44.9 Chronic obstructive pulmonary disease, unspecified; I10 Essential (primary) hypertension
CPT/HCPCS: 36415; 71045; 80048; 99283

== ENCOUNTER 2018-08-15 14:00 | Emergency (ER) | payer OTHER ==
--- OUTSIDE RECORDS SUMMARY | 2018-08-15 14:03 | XMS REPORT | Clinical Summary ---
:1950 Author Organization [facility] Address [address] [place] [address] Care Team Providers Name Role Phone Efe Hernandez MD Primary Care Provider Allergies Active Allergy Reactions Severity Noted Date Comments Penicillins 10/21/2017 As a baby Medications Medication Sig Dispensed Refills Start Date End Date Status BYSTOLIC [...] morning LORAZepam (ATIVAN) Take 1 mg by 0 Active 1 MG tablet mouth as needed. fluticasone Inhale 2 puffs 0 Active (FLOVENT HFA) 110 every morning. mcg/actuation inhaler guaifenesin/pseudoe Take by mouth. 0 Active phedrne HCl (MUCINEX D ORAL) disopyramide Take 150 mg by 0 Active phosphate (NORPACE) mouth daily. 150 MG capsule verapamil sustained Take 180 mg by 0 Active release (CALAN-SR) mouth nightly. 180 MG SR tablet pitavastatin Take 4 mg by 0 Active calcium (LIVALO) 2 mouth nightly. mg tablet ezetimibe (ZETIA) Take 10 mg by 0 Active 10 mg tablet mouth daily. acetaminophen-codei Take 1 tablet 0 09/29/2017 Discontinued ne (TYLENOL WITH by mouth every 8 CODEINE #3) 300-30 4 (four) mg per tablet hours. disopyramide Take 150 mg by 0 Discontinued phosphate (NORPACE) mouth every 8 150 MG capsule morning. verapamil sustained Take 180 mg by 0 Discontinued release (CALAN-SR) mouth nightly. 8 180 MG SR tablet pitavastatin Take 4 mg by 0 Discontinued calcium (LIVALO) 4 mouth nightly. 8 mg tablet ezetimibe (ZETIA) Take 10 mg by 0 Discontinued 10 mg tablet mouth nightly. 8 traMADol (ULTRAM) Take 50 mg by 0 Discontinued 50 mg tablet mouth every 6 [...] Take 1 tablet 120 tablet 0 01/13/2018 Discontinued (ROBAXIN) 500 MG (500 mg total) 8 tabletIndications: by mouth 4 Right elbow pain (four) times a day for 30 days. methocarbamol TAKE 1 TABLET 120 tablet 0 04/08/2018 (ROBAXIN) 500 MG (500 MG TOTAL) 8 tabletIndications: BY MOUTH 4 Right elbow pain (FOUR) TIMES A DAY FOR 30 DAYS. 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 Encounters Date Type Specialty Care Team Description 04/03/2018 Refill Orthopedic Surgery Naresh Haskins, Right elbow pain 03/17/2018 Abstract Orthopedic Surgery Naresh Haskins MD 03/06/2018 Orders Only Orthopedic Surgery Gianni Right elbow pain REBECCA Hennessy (Primary Dx) 03/05/2018 Telephone Orthopedic Surgery Naresh Haskins MD 02/06/2018 Abstract Orthopedic Surgery Naresh Haskins MD 02/02/2018 Office Visit Orthopedic Surgery Naresh Haskins, Left elbow pain ( Primary Dx); Arthritis of elbow, right 01/13/2018 Orders Only Orthopedic Surgery Gianni Right elbow pain REBECCA Hennessy (Primary Dx) 2018 Orders Only Orthopedic Surgery Gianni Right elbow pain REBECCA Hennessy (Primary Dx) 2018 Telephone Orthopedic Surgery Naresh Haskins MD 12/17/2017 Office Visit Orthopedic Surgery Naresh Haskins, Right elbow pain (Primary Dx); Arthritis of elbow, right 12/05/2017 Telephone Orthopedic Surgery Minoo Archer MA 12/02/2017 Telephone Orthopedic Surgery Naresh Haskins MD 12/02/2017 Orders Only Orthopedic Surgery Minoo Archer MA 12/01/2017 Telephone Orthopedic Surgery Naresh Haskins MD 12/01/2017 Telephone Orthopedic Surgery Naresh Haskins MD 11/25/2017 Abstract Orthopedic Surgery Naresh Haskins MD 11/24/2017 Telephone Orthopedic Surgery Naresh Haskins MD 11/19/2017 Telephone Orthopedic Surgery Naresh Haskins MD 11/17/2017 Office Visit Orthopedic Surgery Naresh Haskins, Right elbow pain (Primary Dx); Left elbow pain; Arthritis of elbow, right 11/11/2017 Abstract Orthopedic Surgery Naresh Haskins MD 11/10/2017 Abstract Orthopedic Surgery Naresh Haskins MD 11/10/2017 Abstract Orthopedic Surgery Naresh Haskins MD 11/06/2017 Patient Outreach Yane Eduardo RN 11/03/2017 Anesthesia Event Orthopedic Surgery Marvin Lancaster MD 11/03/2017 Surgery Orthopedic Surgery Naresh Haskins, ARTHROPLASTY, MD ELBOW, TOTAL 11/03/2017 - Hospital Encounter Orthopedic Surgery Naresh Haskins, Arthritis of elbow, 11/06/2017 Jamey Monsalve MD 10/29/2017 Telephone Orthopedic Surgery Minoo Archer [...] Access Naresh Haskins, Preop examination (Primary Dx) 10/14/2017 Abstract Orthopedic Surgery Naresh Haskins MD 10/08/2017 Office Visit Orthopedic Surgery Naresh Haskins, Arthritis of right MD elbow (Primary Dx) after 08/14/2017 Family History Medical History Relation Name Comments Heart disease Father Hypertension Mother Diabetes Sister Relation Name Status Comments Father Mother Sister Alive Social History Tobacco Use Types Packs/Day Years Used Date Never Smoker Smokeless Tobacco: Never Used Alcohol Use Drinks/Week oz/Week Comments Yes 7 Glasses of wine 4.2 Sex Assigned at Date Recorded Not on file Job Start Date Occupation Industry Not on file Not on file Not on file Travel History Travel Start Travel End No recent travel history available. Last Filed Vital Signs Vital Sign Reading [...] CANCER SCREENING 1999 COLON CANCER SCREENING 1999 SHINGLES VACCINES (1 of 2) 1999 PNEUMOCOCCAL POLYSACCHARIDE VACCINE AGE 65 AND OVER 2014 PNEUMOCOCCAL-13 2014 INFLUENZA VACCINE 02/11/2018 Implants Implanted Type Area Experimental Psychologist Device Shelf Model / Identifier Expiration Serial / Lot Date Component Humrl Total Elbw Sys Sm 4in [place] Herbierey - [id number] Distal Joint N/A: N/A [employer] 08/13/2022 [id number] / Implanted: Qty: 1 on 11/03/2017 by Naresh Haskisn MD Orthopedic / Implants [id number] C/M Ulna Assembly 3in Xsml Rt - [id number] IPM IMPLANT Right: [employer] 10/11/2022 [id number] / Implanted: Qty: 1 on 11/03/2017 by Naresh Haskins MD DEVICES Humerus / [id number] Cement Bone Full-Dose Premxd W/ Tobr Simplex P Pack 10/Ea - [id number] Surgical Bone Right: GIULIA 04/12/2019 [id number] / Implanted: 11/03/2017 (Quantity not on file) Cement Humer[employer] ORTHOPEDICS / HIPS-KNEES [id number] Cement Bone Full-Dose Premxd W/ Tobr Simplex P Pack 10/Ea - [id number] Surgical Bone Right: GIULIA 04/12/2019 [id number] / Implanted: 11/03/2017 (Quantity not on file) Cement [employer]umer[employer] ORTHOPEDICS / HIPS-KNEES [id number] Procedures Procedure Name Priority Date/Time Associated Comments Diagnosis ZZESTIMATED GFR Routine 11/06/2017 4:26 Results for this [...] CDT procedure are in the results section. ZZESTIMATED GFR Routine 11/05/2017 3:00 Results for this PM CDT procedure are in the results section. ZZESTIMATED GFR Routine 11/05/2017 4:57 Results for this [...] CDT procedure are in the results section. ZZESTIMATED GFR STAT 11/04/2017 10:34 Results for this PM CDT procedure are in the results section. BASIC METABOLIC PANEL STAT 11/04/2017 10:34 Results for this PM CDT procedure are in the results section. CT HEAD WO CONTRAST STAT 11/04/2017 10:23 Results for this PM CDT procedure are in the results section. ZZESTIMATED GFR STAT 11/04/2017 6:01 Results for this PM CDT procedure are in the results section. BASIC METABOLIC PANEL STAT 11/04/2017 6:01 Results for this PM CDT procedure are in the results section. ZZESTIMATED GFR Routine 11/04/2017 1:00 Results for this [...] CDT procedure are in the results section. ZZESTIMATED GFR Routine 11/04/2017 4:00 Results for this [...] CDT procedure are in the results section. MT AN PERIPHERAL BLOCK Routine 11/03/2017 8:01 POST-OP [...] MAR for details): Ropivacaine Needle: Needle Type: Pa[employer] Interest Networkk Needle Gauge: 19 G Needle Length: 10 [...] CDT procedure are in the results section. ZZESTIMATED GFR Routine 10/24/2017 10:31 AM Results for [...] procedure are in the results section. after 08/14/2017 Results Estimated GFR (11/06/2017 4:26 AM CDT)Only the most recent of8 resultswithin the time period is included. GFR Non Af Amer >90 mL/min/1.73 m2 [facility] DEPARTMENT OF PATHOLOGY AND GENOMIC MEDICINE GFR Af Amer >90 mL/min/1.73 m2 [facility] DEPARTMENT OF Comment: PATHOLOGY AND GENOMIC Chronic kidney disease: <60 mL/min/1.73m2 MEDICINE Kidney [...] Americans. Specimen Plasma specimen Performing Organization Address City/[facility] Phone Number [facility] DEPARTMENT OF PATHOLOGY AND [address] [place] [phone] [employer] Unzipped Partial thromboplastin time, activated (11/06/2017 4:26 AM CDT)Only the most recent of4 resultswithin the time period is included. PTT 29.6 23.0 - 36.0 sec [facility] DEPARTMENT OF PATHOLOGY Comment: AND [employer] [facility] PTT therapeutic range for unfractionated heparin is 61.0-112.0 seconds which corresponds to Anti-Xa 0.3-0.7 U/ml. Specimen Blood Performing Organization Address City/State/Zipcode Phone Number [facility] DEPARTMENT OF PATHOLOGY AND [address] [place] [address] GENOMIC MEDICINE Prothrombin time with INR (11/06/2017 4:26 AM CDT)Only the most recent of4 resultswithin the time period is included. Prothrombin time 13.5 12.0 - 15.0 sec [facility] DEPARTMENT OF PATHOLOGY AND GENOMIC MEDICINE INR 1.0 [facility] DEPARTMENT OF Comment: PATHOLOGY AND GENOMIC The International Normalized Ratio (INR) is a therapeutic MEDICINE monitoring tool for patients who are stable on oral anticoagulant therapy. An INR of 2.0-3.0 is suggested for deep vein thrombosis/pulmonary embolism. Specimen Blood Performing Organization Address City/[facility] Phone Number [facility] DEPARTMENT OF PATHOLOGY AND [address] [place] [address] B natriuretic peptide (11/06/2017 4:26 AM CDT)Only the most recent of3 resultswithin the time period is included. BNP 391 (H) 0 - 100 pg/mL [facility] DEPARTMENT OF PATHOLOGY AND GENOMIC MEDICINE Specimen Blood Performing Organization Address [facility] Phone Number [facility] DEPARTMENT OF PATHOLOGY AND [address] [place], [place] [phone] [facility] Basic metabolic panel (11/06/2017 4:26 AM CDT)Only the most recent of7 resultswithin the time period is included. Sodium 133 (L) 135 - 148 mEq/L [facility] DEPARTMENT OF PATHOLOGY AND GENOMIC MEDICINE Potassium 3.9 3.5 - 5.0 mEq/L [facility] DEPARTMENT OF PATHOLOGY AND GENOMIC MEDICINE Chloride 96 (L) 98 - 112 mEq/L [facility] DEPARTMENT OF PATHOLOGY AND GENOMIC MEDICINE CO2 28 24 - 31 mEq/L [facility] DEPARTMENT OF PATHOLOGY AND GENOMIC MEDICINE Anion gap 9 7 - 15 mEq/L [facility] DEPARTMENT OF PATHOLOGY Comment: AND [facility] Starting from October , anion gap calculation no longer incorporates potassium. Please note the change. BUN 10 8 - 23 mg/dL [facility] DEPARTMENT OF PATHOLOGY AND GENOMIC MEDICINE Creatinine 0.6 0.5 - 0.9 mg/dL [facility] DEPARTMENT OF PATHOLOGY AND GENOMIC MEDICINE Glucose 109 (H) 65 - 99 mg/dL [facility] DEPARTMENT OF PATHOLOGY AND GENOMIC MEDICINE Calcium 8.8 8.8 - 10.2 mg/dL [facility] DEPARTMENT OF PATHOLOGY AND GENOMIC MEDICINE Specimen Plasma specimen Performing Organization Address [facility] Phone Number [facility] DEPARTMENT OF PATHOLOGY AND [address] [place], [place] [phone] GENOMIC MEDICINE CBC with platelet and differential (11/05/2017 4:57 AM CDT)Only the most recent of3 resultswithin the time period is included. WBC 8.48 4.50 - 11.00 k/uL [facility] DEPARTMENT OF PATHOLOGY AND GENOMIC MEDICINE RBC 3.26 (L) 4.20 - 5.50 m/uL [facility] DEPARTMENT OF PATHOLOGY AND GENOMIC MEDICINE HGB 11.5 (L) 12.0 - 16.0 g/dL [facility] DEPARTMENT OF PATHOLOGY AND GENOMIC MEDICINE HCT 33.1 (L) 37.0 - 47.0 % [facility] DEPARTMENT OF PATHOLOGY AND GENOMIC MEDICINE MCV 101.5 (H) 82.0 - 100.0 fL [facility] DEPARTMENT OF PATHOLOGY AND GENOMIC MEDICINE MCH 35.3 (H) 27.0 - 34.0 pg [facility] DEPARTMENT OF PATHOLOGY AND GENOMIC MEDICINE MCHC 34.7 31.0 - 37.0 g/dL [facility] DEPARTMENT OF PATHOLOGY AND GENOMIC MEDICINE RDW - SD 49.1 37.0 - 55.0 fL [facility] DEPARTMENT OF PATHOLOGY AND GENOMIC MEDICINE MPV 9.5 8.8 - 13.2 fL [facility] DEPARTMENT OF PATHOLOGY AND GENOMIC MEDICINE Platelet count 207 150 - 400 k/uL [facility] DEPARTMENT OF PATHOLOGY AND GENOMIC MEDICINE Nucleated RBC 0.00 /100 WBC [facility] DEPARTMENT OF PATHOLOGY AND GENOMIC MEDICINE Neutrophils 78.4 (H) 39.0 - 69.0 % [facility] DEPARTMENT OF PATHOLOGY AND GENOMIC MEDICINE Lymphocytes 12.0 (L) 25.0 - 45.0 % [facility] DEPARTMENT OF PATHOLOGY AND GENOMIC MEDICINE Monocytes 8.8 0.0 - 10.0 % [facility] DEPARTMENT OF PATHOLOGY AND GENOMIC MEDICINE Eosinophils 0.2 0.0 - 5.0 % [facility] DEPARTMENT OF PATHOLOGY AND GENOMIC MEDICINE Basophils 0.2 0.0 - 1.0 % [facility] DEPARTMENT OF PATHOLOGY AND GENOMIC MEDICINE Immature granulocytes 0.4Comment: 0.0 - 1.0 % [facility] DEPARTMENT OF "Immature PATHOLOGY AND GENOMIC granulocytes" MEDICINE (promyelocytes, myelocytes, metamyelocytes) Specimen Blood Performing Organization Address City/State/Zipcode Phone Number [facility] DEPARTMENT OF PATHOLOGY AND [address] [place] [address] [facility] Magnesium level (11/05/2017 4:57 AM CDT) Magnesium 1.7 1.6 - 2.4 mg/dL [facility] DEPARTMENT OF PATHOLOGY AND GENOMIC MEDICINE Specimen Plasma specimen Performing Organization Address City/[facility]/Zipcode Phone Number [facility] DEPARTMENT OF PATHOLOGY AND [address] [place] [address] Head Wo Contrast (11/04/2017 10:23 PM CDT) Narrative Performed At EXAMINATION:[facility]:confusion COMPARISON:None. TECHNIQUE: Noncontrast head CT [...] No CT evidence of acute intracranial abnormality. [id number] Procedure Note Interface, Radiology Results Incoming - [...] No CT evidence of acute intracranial abnormality. [id number] Performing Organization Address [facility]/Zipcode Phone Number [facility] [address] [place] [address] Sodium level, urine, random (11/04/2017 12:05 PM CDT) Sodium, urine, random 105 mEq/L [facility] DEPARTMENT OF PATHOLOGY AND GENOMIC MEDICINE Specimen Urine Performing Organization Address City/[facility]ercode Phone Number [facility] DEPARTMENT OF PATHOLOGY AND [address] [place] [address] Osmolality, urine (11/04/2017 12:05 PM CDT) Osmolality, urine 333 50 - 1,400 mOsm/kg [facility] DEPARTMENT OF PATHOLOGY AND GENOMIC MEDICINE Specimen Urine Performing Organization Address City/[facility]ercode Phone Number [facility] DEPARTMENT OF PATHOLOGY AND [address] [place] [address] Surgical pathology request (11/03/2017 10:07 AM CDT) [facility] DEPARTMENT OF PATHOLOGY AND GENOMIC MEDICINE Surgical pathology report See link below for PDF [facility] DEPARTMENT OF Lab Report PATHOLOGY AND GENOMIC MEDICINE Result status This is Final Report to [facility] DEPARTMENT OF [id number] PATHOLOGY AND GENOMIC MEDICINE Performing Organization Address [facility] Phone Number [facility] DEPARTMENT OF PATHOLOGY AND [address] [place] [address] GENOMIC MEDICINE Type and screen (11/03/2017 6:20 AM CDT) ABO grouping AB [facility] DEPARTMENT OF PATHOLOGY AND GENOMIC MEDICINE Rh type POS [facility] DEPARTMENT OF PATHOLOGY AND GENOMIC MEDICINE Antibody screen (gel) NEG [facility] DEPARTMENT OF PATHOLOGY AND GENOMIC MEDICINE Specimen Blood Performing Organization Address [facility] Phone Number [facility] DEPARTMENT OF PATHOLOGY AND [address] [place] [address] MEDICINE POC glucose (11/03/2017 6:18 AM CDT) POC glucose 83 65 - 99 mg/dL [facility] DEPARTMENT OF PATHOLOGY Comment: AND GENOMIC MEDICINE [facility] Notified RN Meter ID: [id number] Software Design Engineer: Win Agrawal Performing Organization Address City/[facility]/Zipcode Phone Number [facility] DEPARTMENT OF PATHOLOGY AND [address] [place] [address] GENOMIC MEDICINE XR Chest 2 Vw (10/24/2017 11:53 AM CDT) Narrative Performed At EXAMINATION:XR CHEST 2 VW [...] The remainder of the examination is unremarkable. [facility]-[id number] Procedure Note Hm Interface, Radiology Results Incoming [...] The remainder of the examination is unremarkable. [facility]-[id number] Performing Organization Address [facility] Phone Number [facility] [address] [place] [address] ECG Pre/Post Op (10/24/2017 10:58 AM CDT) Ventricular rate 75 [facility] Atrial rate 75 [facility] MT interval 158 [facility] QRSD interval 98 [facility] QT interval 422 [facility] QTC interval 471 [facility] P axis 1 58 [facility] QRS axis 1 71 [facility] T wave axis 69 [facility] MUSE EKG impression Normal sinus rhythm-Possible Left atrial [facility] MUSE enlargement-ST abnormality, possible digitalis effect-Abnormal ECG-No previous ECGs available- Performing Organization Address [facility] Phone Number [facility] MUSE [address] [place] [address] Urinalysis screen and microscopy, with reflex to culture (10/24/2017 10:31 AM CDT) Specimen site Clean catch [facility] DEPARTMENT OF PATHOLOGY AND GENOMIC MEDICINE Color, UA Yellow [facility] DEPARTMENT OF PATHOLOGY AND GENOMIC MEDICINE Appearance, UA Clear [facility] DEPARTMENT OF PATHOLOGY AND GENOMIC MEDICINE Specific gravity, UA 1.019 1.001 - 1.035 [facility] DEPARTMENT OF PATHOLOGY AND GENOMIC MEDICINE pH, UA 5.5 5.0 - 8.5 [facility] DEPARTMENT OF PATHOLOGY AND GENOMIC MEDICINE Protein, UA Negative Negative [facility] DEPARTMENT OF PATHOLOGY AND GENOMIC MEDICINE Glucose, UA Negative Negative [facility] DEPARTMENT OF PATHOLOGY AND GENOMIC MEDICINE Ketones, UA Trace (A) Negative [facility] DEPARTMENT OF PATHOLOGY AND GENOMIC MEDICINE Bilirubin, UA Negative Negative [facility] DEPARTMENT OF PATHOLOGY AND GENOMIC MEDICINE Blood, UA Small (A) Negative [facility] DEPARTMENT OF PATHOLOGY AND GENOMIC MEDICINE Nitrite, UA Negative Negative [facility] DEPARTMENT OF PATHOLOGY AND GENOMIC MEDICINE Urobilinogen, UA <2.0 <2.0 [facility] DEPARTMENT OF PATHOLOGY AND GENOMIC MEDICINE Leukocyte esterase, UA Negative Negative [facility] DEPARTMENT OF PATHOLOGY AND GENOMIC MEDICINE Epithelial cells, UA 5 /HPF [facility] DEPARTMENT OF PATHOLOGY AND GENOMIC MEDICINE Round epithelial cells, UA <1 0 - 1 /HPF [facility] DEPARTMENT OF PATHOLOGY AND GENOMIC MEDICINE WBC, UA 1 0 - 4 /HPF [facility] DEPARTMENT OF PATHOLOGY AND GENOMIC MEDICINE RBC, UA 1 0 - 5 /HPF [facility] DEPARTMENT OF PATHOLOGY AND GENOMIC MEDICINE Bacteria, UA Few None seen [facility] DEPARTMENT OF PATHOLOGY AND GENOMIC MEDICINE Yeast, UA None seen [facility] DEPARTMENT OF PATHOLOGY AND GENOMIC MEDICINE Yeast with pseudohyphae, UA None seen [facility] DEPARTMENT OF PATHOLOGY AND GENOMIC MEDICINE Hyaline casts, UA >20 (A) /LPF [facility] DEPARTMENT OF PATHOLOGY AND GENOMIC MEDICINE Specimen Urine Performing Organization Address City/[facility]ode Phone Number [facility] DEPARTMENT OF PATHOLOGY AND [address] [place] [address] Hemoglobin A1c (10/24/2017 10:31 AM CDT) Hemoglobin A1C 5.1 4.0 - 5.6 % [facility] DEPARTMENT OF PATHOLOGY Comment: AND GENOMIC MEDICINE HbA1c cutoffs for diagnosing diabetes: 4.0% - 5.6%=normal 5.7% - 6.4%=increased risk for diabetes (prediabetes) >=6.5%=diabetes Goals for glycemic control (ADA 2016) < 7.0%Target for non adults with diabetes. More or less stringent targets may be appropriate for individual patients. <7.5% Target for Children and adolescents with type 1 diabetes. Specimen Blood Performing Organization Address City/State/Zipcode Phone Number [facility] DEPARTMENT OF PATHOLOGY AND [address] [place] [address] [facility] Comprehensive metabolic panel (10/24/2017 10:31 AM CDT) Sodium 137 135 - 148 mEq/L [facility] DEPARTMENT OF PATHOLOGY AND GENOMIC MEDICINE Potassium 4.6 3.5 - 5.0 mEq/L [facility] DEPARTMENT OF PATHOLOGY AND GENOMIC MEDICINE Chloride 99 98 - 112 mEq/L [facility] DEPARTMENT OF PATHOLOGY AND GENOMIC MEDICINE CO2 24 24 - 31 mEq/L [facility] DEPARTMENT OF PATHOLOGY AND GENOMIC MEDICINE Anion gap 14 7 - 15 mEq/L [facility] DEPARTMENT OF Comment: PATHOLOGY AND GENOMIC Starting from October , anion gap calculation MEDICINE no longer incorporates potassium. Please note the change. BUN 7 (L) 8 - 23 mg/dL [facility] DEPARTMENT OF PATHOLOGY AND GENOMIC MEDICINE Creatinine 0.5 0.5 - 0.9 mg/dL [facility] DEPARTMENT OF PATHOLOGY AND GENOMIC MEDICINE Glucose 76 65 - 99 mg/dL [facility] DEPARTMENT OF PATHOLOGY AND GENOMIC MEDICINE Calcium 9.4 8.8 - 10.2 mg/dL [facility] DEPARTMENT OF PATHOLOGY AND GENOMIC MEDICINE Protein 7.1 6.3 - 8.3 g/dL [facility] DEPARTMENT OF Comment: PATHOLOGY AND GENOMIC 4.6-7.0 g/dL MEDICINE 1 week 4.4-7.6 g/dL 7 months-1year5.1-7.3 g/dL 1-2 years5.6-7.5 g/dL >3 years6.0-8.0 g/dL 18-150 6.3-8.3 g/dL Albumin 3.9 3.5 - 5.0 g/dL [facility] DEPARTMENT OF PATHOLOGY AND GENOMIC MEDICINE A/G ratio 1.2 0.7 - 3.8 [facility] DEPARTMENT OF PATHOLOGY AND GENOMIC MEDICINE Alkaline phosphatase 57 35 - 104 U/L [facility] DEPARTMENT OF PATHOLOGY AND GENOMIC MEDICINE AST 42 (H) 10 - 35 U/L [facility] DEPARTMENT OF PATHOLOGY AND GENOMIC MEDICINE ALT 34 5 - 50 U/L [facility] DEPARTMENT OF PATHOLOGY AND GENOMIC MEDICINE Total bilirubin 0.6 0.0 - 1.2 mg/dL [facility] DEPARTMENT OF PATHOLOGY AND GENOMIC MEDICINE Specimen Plasma specimen Performing Organization Address City/State/Zipcode Phone Number [facility] DEPARTMENT OF PATHOLOGY AND [address] [place] [address] GENOMIC MEDICINE Urine culture (10/24/2017 10:30 AM CDT) Urine culture SEE COMMENTComment: Bacteriuria [facility] DEPARTMENT OF PATHOLOGY screen negative. AND GENOMIC MEDICINE Performing Organization Address City/State/Zipcode Phone Number [facility] DEPARTMENT OF PATHOLOGY AND [address] [place] [address] GENOMIC MEDICINE after 08/14/2017 Insurance Payer Benefit Plan / Group Subscriber ID Type Phone Address [facility] MEDICARE [facility] MEDICARE xxxxxxxxx [facility] MEDICAID [facility] xxxxxxxxx [facility] ([place]) [place] [address] Advance Directives Patient has advance care planning documents on file. For more information, please contact:Rodger Chinchilla[address] [place] [address]
--- OUTSIDE RECORDS SUMMARY | 2018-08-15 14:04 | XMS REPORT | Clinical Summary ---
:1950 Author Organization [facility] Address [address] [place] [address] Care Team Providers Name Role Phone Mary Efe Primary Care Provider Allergies Active Allergy Reactions Severity Noted Date Comments Penicillins 07/21/2013 TOLD SINCE CHILDHOOD THAT SHE IS ALLERGIC Medications Medication Sig Dispensed Refills Start Date End Date Status montelukast (SINGULAIR) Take 10 mg by 0 Active 10 mg tablet mouth nightly. LORazepam (ATIVAN) 1 MG Take 1 mg by 0 Active tablet mouth as needed. zolpidem (AMBIEN) 10 mg Take 10 mg by 0 Active tablet mouth every night as needed. rosuvastatin (CRESTOR) Take 20 mg by 0 Active 20 MG tablet mouth daily. fluticasone (FLOVENT Inhale by mouth 0 Active HFA) 110 mcg/actuation via inhaler 2 inhaler (two) times daily. Active Problems Problem Noted Date HOCM (hypertrophic obstructive cardiomyopathy) 07/21/2013 Hypertrophic cardiomyopathy 07/21/2013 Social History Tobacco Use Types Packs/Day Years Used Date Never Smoker Alcohol Use Drinks/Week oz/Week Comments Yes 14 Glasses of wine 8.4 Sex Assigned at Date Recorded Not on file Job Start Date Occupation Industry Not on file Not on file Not on file Travel History Travel Start Travel End No recent travel history available. Last Filed Vital Signs Not on file Plan of Treatment Not on file Results Not on fileafter 08/14/2017 Insurance Payer Benefit Plan / Group Subscriber ID Type Phone Address CARE IMPROVEMENT MEDICARE MGD CARE IMPROVEMENT PLUS xxxxxxxxx CARE Advance Directives For more information, please contact:[place] [phone] [facility] [place] [phone] Code Status Date Activated Date Inactivated Comments Full Code 10/30/2016 10:14 AM 10/30/2016 11:41 AM This code status was determined by: Patient Code ONE 07/21/2013 5:46 PM 07/23/2013 6:55 PM All possible means of support, including: cardiac massage, mechanical ventilation, and defibrillation will be used to support life. Code ONE 07/21/2013 9:16 AM 07/21/2013 2:30 PM All possible means of support including;cardiac massage, mechanical ventilation, and defibrillation will be used to support life. Code ONE 06/23/2013 2:07 PM 06/24/2013 7:50 AM For Transesophageal Echo
[2018-08-15] MEDS ORDERED: ONDANSETRON 4 MG/2 ML VIAL ONE (15:36)
[2018-08-15] MEDS ORDERED: NA CHLORIDE 0.9% 1,000 ML ONE (15:36)
[2018-08-15 15:48] LABS: Absolute Lymphocytes (CBC) 0.9 K/uL (0.7-4.9); Absolute Monocytes 0.4 K/uL (0.1-1.3); Basophils % 0.7 % (0-1.3); Eosinophils % 0.6 % (0-4.4); Hematocrit 41.9 % (36.0-45.0); Lymphocytes % 15.9 % (15.3-44.8); MPV 7.2 fL (7.6-11.3); Monocytes % 8.3 % (3.3-12.3)
[2018-08-15 16:00] LABS: Bilirubin Direct 0.4 mg/dL (0-0.2); Bilirubin Total 1.3 mg/dL (0.2-1.0); Potassium 3.3 mmol/L (3.5-5.1); Protein, Total 7.2 g/dL (6.4-8.2)
[2018-08-15] MEDS ORDERED: POTASSIUM CL SA 10 MEQ TAB PO ONE (16:22)
--- NOTE | 2018-08-15 17:11 | ER ---
Nurse's Notes [facility] Name: Lucie Maldonado Age: 68 yrs Sex: Female : 1950 Arrival Date: 08/15/2018 Time: 14:02 Bed 28 Private MD: Efe Hernandez Diagnosis: Nausea and vomiting Presentation: 08/15 14:24 Presenting complaint: Patient states: Vomiting since , not tolerating PO, la1 denies diarrhea, denies abd pain. Transition of care: patient was not received from another setting of care. Onset of symptoms was August 15, 2018. Risk Assessment: Do you want to hurt yourself or someone else? Patient reports no desire to harm self or others. Initial Sepsis Screen: Does the patient meet any 2 criteria? No. Patient's initial sepsis screen is negative. Does the patient have a suspected source of infection? No. Patient's initial sepsis screen is negative. Care prior to arrival: None. 14:24 Method Of Arrival: Ambulatory la1 14:24 Acuity: CECILIA 3 la1 Historical: - Allergies: 14:23 PENICILLINS; la1 - Home Meds: 15:52 Bystolic Oral [Active]; Disopyramide Phosphate Oral [Active]; Livalo Oral [Active]; mg2 Lorazepam Oral [Active]; Verapamil Oral [Active]; - PMHx: 14:23 cardiomyopathy; COPD; Hypertension; High Cholesterol; la1 - PSHx: 15:52 elbow surgery/prosthesis; mg2 - Immunization history:: Adult Immunizations up to date. - Social history:: Smoking status: Patient/guardian denies using tobacco. - Ebola Screening: : No symptoms or risks identified at this time. Screenin:49 Abuse screen: Denies threats or abuse. Denies injuries from another. Nutritional mg2 screening: No deficits noted. Tuberculosis screening: No symptoms or risk factors identified. Fall Risk IV access (20 points). Assessment: 15:48 General: Appears in no apparent distress. comfortable, Behavior is calm, cooperative. mg2 Pain: Denies pain. Neuro: Level of Consciousness is awake, alert, obeys commands, Oriented to person, place, time, situation. Cardiovascular: Capillary refill < 3 seconds Patient's skin is warm and dry. Respiratory: Airway is patent Respiratory effort is even, unlabored, Respiratory pattern is regular, symmetrical. GI: Abdomen is round non-distended, Reports vomiting. : No signs and/or symptoms were reported regarding the genitourinary system. EENT: No signs and/or symptoms were reported regarding the EENT system. Derm: Skin is intact, is healthy with good turgor, Skin is pink, warm \T\ dry. normal. Musculoskeletal: Circulation, motion, and sensation intact. Capillary refill < 3 seconds. 17:05 Reassessment: Patient appears in no apparent distress at this time. Patient and/or mg2 family updated on plan of care and expected duration. Pain level reassessed. Patient is alert, oriented x 3, equal unlabored respirations, skin warm/dry/pink. Vital Signs: 14:23 Pulse 83; Resp 16; Temp 99.2(TE); Pulse Ox 98% on R/A; Weight 55.79 kg; Height 5 ft. 6 la1 in. (167.64 cm); 14:25 BP 153 / 106; la1 17:19 BP 145 / 78; Pulse 80; Resp 18; Pulse Ox 100% on R/A; Pain 0/10; mg2 14:23 Body Mass Index 19.85 (55.79 kg, 167.64 cm) la1 ED Course: 14:02 Patient arrived in ED. rg4 14:02 Efe Hernandez MD is Private Physician. rg4 14:23 Arm band placed on right wrist. la1 14:25 Triage completed. la1 14:51 Carmen Jaramillo FNP-C is [facility]. kb 14:51 Rafat Tay MD is Attending Physician. kb 14:52 Ankit Solano RN is Primary Nurse. mg2 15:50 Patient has correct armband on for positive identification. Pulse ox on. NIBP on. Door mg2 closed. Warm blanket given. 15:50 No provider procedures requiring assistance completed. Inserted saline lock: 20 gauge mg2 in left antecubital area, using aseptic technique. Blood collected. By ZAIRA Fitch. 17:19 IV discontinued, intact, bleeding controlled, No redness/swelling at site. Pressure mg2 dressing applied. Administered Medications: 15:45 Drug: NS 0.9% 1000 ml Route: IV; Rate: 1000 ml; Site: left antecubital; mg2 17:19 Follow up: Response: No adverse reaction; IV Status: Completed infusion mg2 15:45 Drug: Zofran 4 mg Route: IVP; Site: left antecubital; mg2 17:19 Follow up: Response: No adverse reaction; Marked relief of symptoms mg2 16:43 Drug: Potassium Chloride 20 mEq Route: PO; mg2 17:18 Follow up: Response: No adverse reaction mg2 Outcome: 17:11 Discharge ordered by . césar 17:19 Discharged to home ambulatory, with family. mg2 17:19 Condition: stable 17:19 Discharge instructions given to patient, family, Instructed on discharge instructions, follow up and referral plans. medication usage, Demonstrated understanding of instructions, follow-up care, medications, Prescriptions given X 2. 17:20 Patient left the ED. mg2 Signatures: Carmen Jaramillo, ELÍAS-C BREAKFAST ATTENDANT-Jayson Reich RN RN [email or web address] [facility] Michele, RN RN mg2
--- NOTE | 2018-08-15 17:12 | EDPHYS ---
Physician Documentation [facility] Name: Lucie Maldonado Age: 68 yrs Sex: Female : 1950 Arrival Date: 08/15/2018 Time: 14:02 Bed 28 Private MD: Efe Hernandez ED Physician Rafat Tay HPI: 08/15 17:15 This 68 yrs old Female presents to ER via Ambulatory with complaints of kb Vomiting. 17:15 The patient presents to the emergency department with nausea, vomiting. Onset: The kb symptoms/episode began/occurred 4 day(s) ago. Possible causes: unknown. The symptoms are aggravated by nothing. The symptoms are alleviated by nothing. Associated signs and symptoms: Pertinent positives: nausea, vomiting. Severity of symptoms: At their worst the symptoms were moderate in the emergency department the symptoms are unchanged. The patient has not experienced similar symptoms in the past. The patient has not recently seen a physician. Historical: - Allergies: 14:23 PENICILLINS; la1 - Home Meds: 15:52 Bystolic Oral [Active]; Disopyramide Phosphate Oral [Active]; Livalo Oral [Active]; mg2 Lorazepam Oral [Active]; Verapamil Oral [Active]; - PMHx: 14:23 cardiomyopathy; COPD; Hypertension; High Cholesterol; la1 - PSHx: 15:52 elbow surgery/prosthesis; mg2 - Immunization history:: Adult Immunizations up to date. - Social history:: Smoking status: Patient/guardian denies using tobacco. - Ebola Screening: : No symptoms or risks identified at this time. ROS: 17:12 Constitutional: Negative for fever, chills, and weight loss, Cardiovascular: Negative kb for chest pain, palpitations, and edema, Respiratory: Negative for shortness of breath, cough, wheezing, and pleuritic chest pain, Back: Negative for injury and pain, : Negative for injury, bleeding, discharge, and swelling, MS/Extremity: Negative for injury and deformity, Skin: Negative for injury, rash, and discoloration, Neuro: Negative for headache, weakness, numbness, tingling, and seizure. 17:12 Abdomen/GI: Positive for nausea and vomiting, Negative for abdominal pain, diarrhea, constipation, abdominal cramps, abdominal distension, anorexia. Exam: 17:12 Constitutional: This is a well developed, well nourished patient who is awake, alert, kb and in no acute distress. Head/Face: Normocephalic, atraumatic. Chest/axilla: Normal chest wall appearance and motion. Nontender with no deformity. No lesions are appreciated. Cardiovascular: Regular rate and rhythm with a normal S1 and S2. No gallops, murmurs, or rubs. Normal PMI, no JVD. No pulse deficits. Respiratory: Lungs have equal breath sounds bilaterally, clear to auscultation and percussion. No rales, rhonchi or wheezes noted. No increased work of breathing, no retractions or nasal flaring. Abdomen/GI: Soft, non-tender, with normal bowel sounds. No distension or tympany. No guarding or rebound. No evidence of tenderness throughout. Skin: Warm, dry with normal turgor. Normal color with no rashes, no lesions, and no evidence of cellulitis. MS/ Extremity: Pulses equal, no cyanosis. Neurovascular intact. Full, normal range of motion. Neuro: Awake and alert, GCS 15, oriented to person, place, time, and situation. Cranial nerves II-XII grossly intact. Motor strength 5/5 in all extremities. Sensory grossly intact. Cerebellar exam normal. Normal gait. Vital Signs: 14:23 Pulse 83; Resp 16; Temp 99.2(TE); Pulse Ox 98% on R/A; Weight 55.79 kg; Height 5 ft. 6 la1 in. (167.64 cm); 14:25 BP 153 / 106; la1 17:19 BP 145 / 78; Pulse 80; Resp 18; Pulse Ox 100% on R/A; Pain 0/10; mg2 14:23 Body Mass Index 19.85 (55.79 kg, 167.64 cm) la1 MDM: 14:51 Patient medically screened. kb 17:13 Data reviewed: vital signs, nurses notes. Data interpreted: Pulse oximetry: on room air kb is 98 %. Interpretation: normal. Counseling: I had a detailed discussion with the patient and/or guardian regarding: the historical points, exam findings, and any diagnostic results supporting the discharge/admit diagnosis, lab results, the need for outpatient follow up, a family practitioner, to return to the emergency department if symptoms worsen or persist or if there are any questions or concerns that arise at home. 17:16 ED course: Pt tolerating PO. Reports she is hungry now and wants to go eat. kb 08/15 15:04 Order name: Hepatic Function; Complete Time: 16:05 kb 08/15 15:04 Order name: Basic Metabolic Panel; Complete Time: 16:05 kb 08/15 15:04 Order name: CBC with Diff; Complete Time: 16:10 kb 08/15 15:04 Order name: Lipase; Complete Time: 16:05 kb 08/15 15:04 Order name: IV Saline Lock; Complete Time: 15:45 kb 08/15 15:04 Order name: Labs collected and sent; Complete Time: 15:46 kb 08/15 15:04 Order name: Urine Dipstick-Ancillary (obtain specimen); Complete Time: 16:43 kb 08/15 16:05 Order name: PO challenge; Complete Time: 16:43 kb Administered Medications: 15:45 Drug: NS 0.9% 1000 ml Route: IV; Rate: 1000 ml; Site: left antecubital; mg2 17:19 Follow up: Response: No adverse reaction; IV Status: Completed infusion mg2 15:45 Drug: Zofran 4 mg Route: IVP; Site: left antecubital; mg2 17:19 Follow up: Response: No adverse reaction; Marked relief of symptoms mg2 16:43 Drug: Potassium Chloride 20 mEq Route: PO; mg2 17:18 Follow up: Response: No adverse reaction mg2 Disposition: 18:55 Co-signature as Attending Physician, Rafat Tay MD Available for consultation at ps1 all times . Disposition: 08/15/18 17:11 Discharged to Home. Impression: Nausea and vomiting. - Condition is Stable. - Discharge Instructions: Nausea and Vomiting, Adult, [id number]-Bpuj. - Prescriptions for Bentyl 20 mg Oral Tablet - take 1 tablet by ORAL route every 6 hours As needed; 20 tablet. Zofran 4 mg Oral Tablet - take 1 tablet by ORAL route every 6 hours As needed; 20 tablet. - Medication Reconciliation Form, Thank You Letter, Antibiotic Education, Prescription Opioid Use form. - Follow up: Private Physician; When: 2 - 3 days; Reason: Recheck today's complaints, Continuance of care, Re-evaluation by your physician. Follow up: Emergency Department; When: As needed; Reason: Worsening of condition. Signatures: Dispatcher MedHo Carmen Morris FNP-C FNP-Jayson Reich, RN RN la1 Rafat Tay MD MD ps1 Ankit Solano, RN RN mg2 Corrections: (The following items were deleted from the chart) 17:20 17:11 08/15/2018 17:11 Discharged to Home. Impression: Nausea and vomiting. Condition mg2 is Stable. Forms are Medication Reconciliation Form, Thank You Letter, Antibiotic Education, Prescription Opioid Use. Follow up: Private Physician; When: 2 - 3 days; Reason: Recheck today's complaints, Continuance of care, Re-evaluation by your physician. Follow up: Emergency Department; When: As needed; Reason: Worsening of condition. kb
== END 2018-08-15 17:20 | disposition home or self-care (01) ==
LOC: ER 14:00
DX: R11.2 Nausea with vomiting, unspecified (principal); E78.00 Pure hypercholesterolemia, unspecified; I10 Essential (primary) hypertension; I42.9 Cardiomyopathy, unspecified; Z79.899 Other long term (current) drug therapy
CPT/HCPCS: 36415; 80048; 80076; 83690; 85025; 96361; 96374; 99284; J2405; J7030

== ENCOUNTER 2019-02-20 18:50 | Emergency (ER) | payer OTHER ==
--- OUTSIDE RECORDS SUMMARY | 2019-02-20 18:53 | XMS REPORT | Clinical Summary ---
:1950 Author Organization [facility] Address [address] [place] [address] Care Team Providers Name Role Phone Efe [...] 0 Active 10 mg tablet mouth daily. methocarbamol Take 1 tablet 120 tablet 0 [...] Team Description 04/03/2018 Refill Orthopedic Surgery Naresh Haskins MD Right elbow pain 03/17/2018 Abstract Orthopedic Surgery Naresh Haskins MD 03/06/2018 Orders Only Orthopedic Surgery Minoo Archer, Right elbow pain (Primary MA Dx) 03/05/2018 Telephone Orthopedic Surgery Naresh Haskins MD after 02/19/2018 Family History Medical History Relation Name Comments [...] Signs Not on file Plan of Treatment Health Maintenance Due Date Last Done Comments BREAST CANCER SCREENING 1999 COLONOSCOPY SCREENING 1999 SHINGLES VACCINES (#1) 1999 65+ PNEUMOCOCCAL VACCINE (1 of 2 - PCV13) 2014 INFLUENZA VACCINE 02/11/2019 Implants Implanted Type Area Manager Of Pharmacy Device Shelf Model / Identifier Expiration Serial / Lot Date Component [employer] Elbw Sys Sm 4in Coonhedler [facility] - [id number] Distal Joint N/A: N/A [employer] 08/13/2022 [id number] / Implanted: Qty: 1 on 11/03/2017 by Naresh Haskins MD Orthopedic / Implants [id number] C/M Ulna Assembly 3in Xsml Rt - [id number] IMPLANT Right: [employer] 10/11/2022 [id number] / Implanted: Qty: 1 on 11/03/2017 by Naresh Haskins MD DEVICES Humerus / [id number] Cement Bone Full-Dose Premxd W/ Tobr Simplex P Pack 10/Ea - [id number] Surgical Bone Right: GIULIA 04/12/2019 [id number] / Implanted: 11/03/2017 (Quantity not on file) Cement Humerus ORTHOPEDICS / HIPS-KNEES [id number] Cement Bone Full-Dose Premxd W/ Tobr Simplex P Pack - [id number] Surgical Bone Right: GIULIA 04/12/2019 [id number] / Implanted: 11/03/2017 (Quantity not on file) Cement Humerus ORTHOPEDICS / HIPS-KNEES [id number] Results Not on fileafter 02/19/2018 (Solon) [place] [address] Advance Directives Patient has advance care planning documents on file. For more information, please contact:Rodger Chinchilla[address] [place] [address]
--- OUTSIDE RECORDS SUMMARY | 2019-02-20 18:53 | XMS REPORT | Clinical Summary ---
:1950 Author Organization [facility] Address [address] [place] [address] Care Team Providers Name Role Phone Efe [...] Not on file Results Not on fileafter 02/19/2018 Insurance Payer Benefit Plan / Group Subscriber ID Type Phone Address CARE IMPROVEMENT MEDICARE MGD CARE IMPROVEMENT PLUS xxxxxxxxx CARE Advance Directives For more information, please contact:[place] [phone] [facility] [place] [phone] Code Status Date Activated Date Inactivated Comments [...]
--- NOTE | 2019-02-20 19:43 | RAD REPORT ---
EXAM DESCRIPTION: CT - Head Brain Wo Cont - 02/20/2019 7:34 pm CLINICAL HISTORY: DIZZINESS Fall, head injury COMPARISON: <Comparisons> TECHNIQUE: All CT scans are performed using dose optimization technique as appropriate and may inclu de automated exposure control or mA/KV adjustment according to patient size. FINDINGS: No intracranial hemorrhage, hydrocephalus or extra-axial fluid collection.Moderate brain a trophy.No areas of brain edema or evidence of midline shift. The paranasal sinuses and mastoids are clear. The calvarium is intact. IMPRESSION: No acute intracranial abnormality.
[2019-02-20] MEDS ORDERED: NA CHLORIDE 0.9% 500 ML ONE (19:44)
[2019-02-20 20:16] LABS: Absolute Lymphocytes (CBC) 1.1 K/uL (0.7-4.9); Basophils % 0.5 % (0-1.3); Hematocrit 39.2 % (36.0-45.0); Lymphocytes % 13.1 % (15.3-44.8); MPV 7.1 fL (7.6-11.3); Protime INR 0.85; RBC Red Blood Cell Count 3.68 M/uL (3.86-4.86)
[2019-02-20 20:25] LABS: BUN Blood Urea Nitrogen 14 mg/dL (7-18); Bicarbonate 26 mmol/L (21-32); Glucose Level 89 mg/dL (74-106); Magnesium 2.5 mg/dL (1.8-2.4); Potassium 3.7 mmol/L (3.5-5.1); Sodium Level 138 mmol/L (136-145)
[2019-02-20 20:54] LABS: Urine White Blood Cell Casts OK
[2019-02-20 20:55] LABS: Blood Morphology Comment NOTED (NOT SEEN); Macrocytosis 1+; Platelet Estimate ADEQ
--- NOTE | 2019-02-20 20:55 | ER ---
Nurse's Notes [facility] Name: Lucie Maldonado Age: 69 yrs Sex: Female : 1950 Arrival Date: 02/20/2019 Time: 19:00 Bed 3 Private MD: Diagnosis: Contusion of other part of head Presentation: 02/20 19:02 Presenting complaint: EMS states: pt was found outside by her son, had been drinking, iw appears to have fallen off porch steps, pt doesn't remember how she fell, states she had 1/2 glass of wine with her Lorazepam at lunchtime, son told EMS there was an empty bottle of tequila nearby. 19:02 Acuity: CECILIA 3 iw 19:02 Method Of Arrival: EMS: [facility] iw 19:06 Transition of care: patient was not received from another setting of care. Onset of symptoms was February 20, 2019. Risk Assessment: Do you want to hurt yourself or someone else? Patient reports no desire to harm self or others. Initial Sepsis Screen: Does the patient meet any 2 criteria? No. Patient's initial sepsis screen is negative. Does the patient have a suspected source of infection? No. Patient's initial sepsis screen is negative. Care prior to arrival: None. 19:09 Mechanism of Injury: Fall down steps. Trauma event details: Injury occurred in the [facility], Injury occurred: at home. Injury occurred: February 20, 2019. Triage Assessment: 19:15 General: Appears in no apparent distress. comfortable, Behavior is calm, cooperative, cc3 appropriate for age. Pain: Denies pain. EENT: Sclera/Cornea are clear in bilateral Nares are clear Oral mucosa is moist. Throat is clear with gag reflex present. Neuro: Level of Consciousness is awake, alert, obeys commands, Oriented to person, place, time, situation, Appropriate for age Derrick Worker are equal bilaterally Moves all extremities. Speech is normal, Facial symmetry appears normal. Cardiovascular: Denies chest pain, Capillary refill < 3 seconds Patient's skin is warm and dry. Respiratory: Airway is patent Respiratory effort is even, unlabored, Respiratory pattern is regular, symmetrical. GI: Abdomen is flat, non-distended. : No signs and/or symptoms were reported regarding the genitourinary system. Derm: Skin is intact, is fragile, Skin is Bruising that is dark purple, bilateral upper arms. Musculoskeletal: Circulation, motion, and sensation intact. Range of motion: intact in all extremities. Injury Description: fall injury. Trauma Activation: Not Applicable Physician: ED Physician; Name: ; Notified At: ; Arrived At: Physician: General Surgeon; Name: ; Notified At: ; Arrived At: Physician: Radiology; Name: ; Notified At: ; Arrived At: Physician: Respiratory; Name: ; Notified At: ; Arrived At: Physician: Lab; Name: ; Notified At: ; Arrived At: Historical: - Allergies: 19:08 PENICILLINS; iw - Home Meds: 19:08 Disopyramide Phosphate Oral [Active]; Verapamil Oral [Active]; montelukast 10 mg oral iw tab 1 tab once daily [Active]; dicyclomine Oral [Active]; Clonidine Oral [Active]; Spironolactone Oral [Active]; Bystolic Oral [Active]; Lorazepam Oral [Active]; 19:15 Livalo Oral [Active]; Lorazepam Oral [Active]; cc3 - PMHx: 19:08 cardiomyopathy; COPD; High Cholesterol; Hypertension; iw - PSHx: 19:08 elbow surgery/prosthesis; iw - Immunization history: Last tetanus immunization: unknown. - Social history:: Smoking status: Patient/guardian denies using tobacco. - Ebola Screening: : Patient negative for fever greater than or equal to 101.5 degrees Fahrenheit, and additional compatible Ebola Virus Disease symptoms Patient denies exposure to infectious person Patient denies travel to an Ebola-affected area in the 21 days before illness onset No symptoms or risks identified at this time. Screenin:09 Abuse screen: Denies threats or abuse. Denies injuries from another. Tuberculosis iw screening: No symptoms or risk factors identified. 19:15 Nutritional screening: No deficits noted. Fall Risk Ambulatory Aid- None/Bed Rest/Nurse cc3 Assist (0 pts). Gait- Normal/Bed Rest/Wheelchair (0 pts) Mental Status- Oriented to own ability (0 pts). Primary Survey: 19:11 NO uncontrolled hemorrhage observed. A: Airway: patent. Breathing/Chest: Respiratory iw pattern: regular. Circulation: Pulses: palpable bilateral radial, brachial, femoral, popliteal, posterior tibial and and dorsalis pedis arteries.. Disability Alert. Exposure/Environment: All clothing and personal items were removed. Forensic evidence collection is not deemed to be indicated at this time. Items placed in patient belonging bag. 19:15 Reassessment Airway Airway Patent Breathing/Chest Respiratory pattern Regular cc3 Respiratory effort Spontaneous Unlabored Chest inspection Symmetrical Circulation Heart tones Present Disability Alert. Secondary Survey: 19:15 HEENT: Head No injury/deformity Face No injury/deformity Eyes: No injury or deformity cc3 noted. to bilateral eyes. Ears: clear bilaterally. Nose: clear to bilateral nares. Throat: No injury or deformity noted. is clear with gag reflex present. Gastrointestinal: Abdomen is soft, flat, Bowel sounds present in all quadrants. : No signs and/or symptoms were reported regarding the genitourinary system. Musculoskeletal: Circulation, motion, and sensation intact. Range of motion: intact in all extremities. Assessment: 19:15 General: see triage assessment. cc3 19:40 Reassessment: Patient's sister Russell [phone]. cc3 20:25 Reassessment: Patient appears in no apparent distress at this time. Patient and/or cc3 family updated on plan of care and expected duration. Pain level reassessed. Patient is alert, oriented x 3, equal unlabored respirations, skin warm/dry/pink. 20:55 Reassessment: Patient's ordered for discharge home, patient's son said he'll be back. cc3 21:40 Reassessment: Patient appears in no apparent distress at this time. Patient and/or cc3 family updated on plan of care and expected duration. Pain level reassessed. Patient is alert, oriented x 3, equal unlabored respirations, skin warm/dry/pink. Patient's son came back. Dr. Daniels discharged the patient home, no prescription given. IV cannula removed and patient left ER vitally stable by wheelchair escorted by me and the patient's son. No valuables left in the patient's room. Patient denies pain at this time. Patient states feeling better. Patient states symptoms have improved. Vital Signs: 19:05 BP 128 / 89; Pulse 91; Resp 16; Temp 97.6; Pulse Ox 100% on R/A; Weight 55.34 kg; iw Height 5 ft. 3 in. (160.02 cm); Pain 0/10; 20:18 BP 134 / 92; Pulse 90; Resp 17 S; Pulse Ox 98% on R/A; cc3 21:25 BP 130 / 88; Pulse 92; Resp 17 S; Pulse Ox 98% on R/A; cc3 19:05 Body Mass Index 21.61 (55.34 kg, 160.02 cm) iw [place]o Coma Score: 19:05 Eye Response: spontaneous(4). Verbal Response: oriented(5). Motor Response: obeys iw commands(6). Total: 15. Trauma Score (Adult): 19:05 Eye Response: spontaneous(1); Verbal Response: oriented(1); Motor Response: obeys iw commands(2); Systolic BP: > 89 mm Hg(4); Respiratory Rate: 10 to 29 per min(4); Steffanie Score: 15; Trauma Score: 12 ED Course: 19:00 Patient arrived in ED. iw 19:00 Jf Daniels MD is Attending Physician. gs 19:04 Triage completed. iw 19:06 Arm band placed on. iw 19:10 Patient has correct armband on for positive identification. iw 19:10 Patient maintains SpO2 saturation greater than 95% on room air. iw 19:15 Thermoregulation: warm blanket given to patient. cc3 19:20 Tracee Mckinney is Primary Nurse. cc3 19:33 CT completed. Patient tolerated procedure well. Patient moved back from CT. bq 19:38 CT Head Brain wo Cont In Process Unspecified. EDMS 19:50 Inserted saline lock: 20 gauge in right antecubital area, using aseptic technique. cc3 Blood collected. 21:40 No provider procedures requiring assistance completed. IV discontinued, intact, cc3 bleeding controlled, No redness/swelling at site. Pressure dressing applied. Administered Medications: 19:50 Drug: NS 0.9% 500 ml Route: IV; Rate: bolus; Site: right antecubital; cc3 20:45 Follow up: Response: No adverse reaction; IV Status: Completed infusion; IV Intake: cc3 500ml Intake: 20:30 PO: 200ml (Water); Total: 200ml. cc3 20:45 IV: 500ml; Total: 700ml. cc3 Output: 20:30 Urine: 1ml (Voided); Total: 1ml. cc3 Outcome: 20:55 Discharge ordered by . gs 21:00 Patient's length of stay was not longer than 2 hours. cc3 21:40 Patient left the ED. cc3 21:40 Discharged to home via wheelchair, with family. cc3 21:40 Condition: stable 21:40 Discharge instructions given to patient, family, Instructed on discharge instructions, follow up and referral plans. Demonstrated understanding of instructions, follow-up care. Signatures: Dispatcher [employer] EDMS Stephanie Burrell Irene, RN RN iw Starr, Gregory, MD MD gs Cordel, Charlene cc3 Corrections: (The following items were deleted from the chart) 23:11 21:40 Reassessment: Patient appears in no apparent distress at this time. Patient cc3 and/or family updated on plan of care and expected duration. Pain level reassessed. Patient is alert, oriented x 3, equal unlabored respirations, skin warm/dry/pink. Dr. Daniels discharged the patient home, no prescription given. IV cannula removed and patient left ER cc3 02/21 01:19 08 21:40 Reassessment: Patient appears in no apparent distress at this time. Patient cc3 and/or family updated on plan of care and expected duration. Pain level reassessed. Patient is alert, oriented x 3, equal unlabored respirations, skin warm/dry/pink. Dr. Daniels discharged the patient home, no prescription given. IV cannula removed and patient left ER vitally stable by wheelchair escorted by me and the patient's son. No valuables left in the patient's room. Patient denies pain at this time. Patient states feeling better. Patient states symptoms have improved. cc3
--- NOTE | 2019-02-20 20:56 | EDPHYS ---
Physician Documentation [facility] Name: Lucie Maldonado Age: 69 yrs Sex: Female : 1950 Arrival Date: 02/20/2019 Time: 19:00 Bed 3 Private MD: ED Physician Jf Daniels HPI: 02/20 19:22 This 69 yrs old Female presents to ER via EMS with complaints of Fall Injury. gs 19:22 Details of fall: The patient fell from an upright position. Onset: The symptoms/episode gs began/occurred acutely, just prior to arrival. Associated injuries: The patient sustained no obvious injury, per pt but has been drinking. Severity of symptoms: At their worst the symptoms were moderate, in the emergency department the symptoms have improved, markedly. The patient has experienced similar episodes in the past, a few times. The patient has not recently seen a physician. Historical: - Allergies: 19:08 PENICILLINS; iw - Home Meds: 19:08 Disopyramide Phosphate Oral [Active]; Verapamil Oral [Active]; montelukast 10 mg oral iw tab 1 tab once daily [Active]; dicyclomine Oral [Active]; Clonidine Oral [Active]; Spironolactone Oral [Active]; Bystolic Oral [Active]; Lorazepam Oral [Active]; 19:15 Livalo Oral [Active]; Lorazepam Oral [Active]; cc3 - PMHx: 19:08 cardiomyopathy; COPD; High Cholesterol; Hypertension; iw - PSHx: 19:08 elbow surgery/prosthesis; iw - Immunization history: Last tetanus immunization: unknown. - Social history:: Smoking status: Patient/guardian denies using tobacco. - Ebola Screening: : Patient negative for fever greater than or equal to 101.5 degrees Fahrenheit, and additional compatible Ebola Virus Disease symptoms Patient denies exposure to infectious person Patient denies travel to an Ebola-affected area in the 21 days before illness onset No symptoms or risks identified at this time. ROS: 19:22 All other systems are negative. gs 20:47 Cardiovascular: Negative for chest pain. gs 20:47 Respiratory: Negative for shortness of breath. Exam: 19:22 Head/Face: Normocephalic, atraumatic. Eyes: Pupils equal round and reactive to light, gs extra-ocular motions intact. Lids and lashes normal. Conjunctiva and sclera are non-icteric and not injected. Cornea within normal limits. Periorbital areas with no swelling, redness, or edema. ENT: Nares patent. No nasal discharge, no septal abnormalities noted. Tympanic membranes are normal and external auditory canals are clear. Oropharynx with no redness, swelling, or masses, exudates, or evidence of obstruction, uvula midline. Mucous membranes moist. Neck: Trachea midline, no thyromegaly or masses palpated, and no cervical lymphadenopathy. Supple, full range of motion without nuchal rigidity, or vertebral point tenderness. No Meningismus. Chest/axilla: Normal chest wall appearance and motion. Nontender with no deformity. No lesions are appreciated. Cardiovascular: Regular rate and rhythm with a normal S1 and S2. No gallops, murmurs, or rubs. Normal PMI, no JVD. No pulse deficits. Respiratory: Lungs have equal breath sounds bilaterally, clear to auscultation and percussion. No rales, rhonchi or wheezes noted. No increased work of breathing, no retractions or nasal flaring. Abdomen/GI: Soft, non-tender, with normal bowel sounds. No distension or tympany. No guarding or rebound. No evidence of tenderness throughout. Back: No spinal tenderness. No costovertebral tenderness. Full range of motion. Skin: Warm, dry with normal turgor. Normal color with no rashes, no lesions, and no evidence of cellulitis. MS/ Extremity: Pulses equal, no cyanosis. Neurovascular intact. Full, normal range of motion. Neuro: Awake and alert, GCS 15, oriented to person, place, time, and situation. Cranial nerves II-XII grossly intact. Motor strength 5/5 in all extremities. Sensory grossly intact. Cerebellar exam normal. Normal gait. 19:22 Constitutional: The patient appears alert, awake. 20:47 ECG was reviewed by the Attending Physician. gs 21:38 Cardiovascular: Heart sounds: murmur, systolic, grade 2 over 6. Vital Signs: 19:05 BP 128 / 89; Pulse 91; Resp 16; Temp 97.6; Pulse Ox 100% on R/A; Weight 55.34 kg; iw Height 5 ft. 3 in. (160.02 cm); Pain 0/10; 20:18 BP 134 / 92; Pulse 90; Resp 17 S; Pulse Ox 98% on R/A; cc3 21:25 BP 130 / 88; Pulse 92; Resp 17 S; Pulse Ox 98% on R/A; cc3 19:05 Body Mass Index 21.61 (55.34 kg, 160.02 cm) iw Jenks Coma Score: 19:05 Eye Response: spontaneous(4). Verbal Response: oriented(5). Motor Response: obeys iw commands(6). Total: 15. Trauma Score (Adult): 19:05 Eye Response: spontaneous(1); Verbal Response: oriented(1); Motor Response: obeys iw commands(2); Systolic BP: > 89 mm Hg(4); Respiratory Rate: 10 to 29 per min(4); Jenks Score: 15; Trauma Score: 12 MDM: 19:12 Patient medically screened. gs 20:47 Differential diagnosis: abrasion, closed head injury, contusion. Data reviewed: vital gs signs, nurses notes, lab test result(s), EKG, radiologic studies. Counseling: I had a detailed discussion with the patient and/or guardian regarding: the historical points, exam findings, and any diagnostic results supporting the discharge/admit diagnosis, lab results, radiology results, the need for outpatient follow up. Response to treatment: the patient's symptoms have markedly improved after treatment, and as a result, I will discharge patient. 02/20 19:14 Order name: Basic Metabolic Panel; Complete Time: 20:47 gs 02/20 19:14 Order name: CBC with Diff; Complete Time: 21:28 gs 02/20 19:14 Order name: Magnesium; Complete Time: 20:47 gs 02/20 19:14 Order name: PT-INR; Complete Time: 20:47 gs 02/20 19:48 Order name: ETOH Level; Complete Time: 21:28 gs 02/20 20:25 Order name: CBC Smear Scan; Complete Time: 21:28 EDMS 02/20 19:14 Order name: EKG; Complete Time: 19:15 gs 02/20 19:14 Order name: Cardiac monitoring; Complete Time: 19:30 gs 02/20 19:14 Order name: EKG - Nurse/Tech; Complete Time: 19:28 gs 02/20 19:14 Order name: IV Saline Lock; Complete Time: 19:55 gs 02/20 19:14 Order name: Labs collected and sent; Complete Time: 19:55 02/20 19:14 Order name: O2 Per Protocol; Complete Time: 19:28 02/20 19:14 Order name: CT Head Brain wo Cont; Complete Time: 19:48 02/20 19:14 Order name: O2 Sat Monitoring; Complete Time: 19:28 EC:47 Rate is 91 beats/min. Rhythm is regular. [place] interval is normal. QRS interval is normal. gs No Q waves. T waves are Normal. T waves are Inverted in leads I, aVL. No ST changes noted. Clinical impression: NSR w/ Non-specific ST/T Changes. Interpreted by me. Administered Medications: 19:50 Drug: NS 0.9% 500 ml Route: IV; Rate: bolus; Site: right antecubital; cc3 20:45 Follow up: Response: No adverse reaction; IV Status: Completed infusion; IV Intake: cc3 500ml Disposition: 02/20/19 20:55 Discharged to Home. Impression: Contusion of other part of head. - Condition is Stable. - Discharge Instructions: Fall Prevention in the Home, Contusion, [id number]. - Medication Reconciliation Form, Thank You Letter, Antibiotic Education, Prescription Opioid Use form. - Follow up: Private Physician; When: 2 - 3 days; Reason: Re-evaluation by your physician. Signatures: Dispatcher [employer] Carly Acharya, Jf Glaser RN, MD MD gs Cordel, Charlene cc3 Corrections: (The following items were deleted from the chart) 21:40 20:55 02/20/2019 20:55 Discharged to Home. Impression: Contusion of other part of head. cc3 Condition is Stable. Forms are Medication Reconciliation Form, Thank You Letter, Antibiotic Education, Prescription Opioid Use. Follow up: Private Physician; When: 2 - 3 days; Reason: Re-evaluation by your physician.
--- NOTE | 2019-02-21 10:22 | EKG ---
Test Date: 2019-02-20 Test Time: 19:29:25 Specialty Sales Representative: CAROLE MEASUREMENT RESULTS: Intervals: Rate: 91 ND: 166 QRSD: 94 QT: 400 QTc: 492 [place]: P: 103 ND: 166 QRS: 63 T: 126 INTERPRETIVE STATEMENTS: Normal sinus rhythm non specific T wave abnormality Prolonged QT Abnormal ECG Compared to ECG 02/10/2006 06:25:00 T-wave abnormality now present Prolonged QT interval now present Electronically Signed On 02-21-19 10:22:03 CDT by Chavo Magana
== END 2019-02-20 21:40 | disposition home or self-care (01) ==
LOC: ER 18:50
DX: S00.83XA Contusion of other part of head, initial encounter (principal); W19.XXXA Unspecified fall, initial encounter; J44.9 Chronic obstructive pulmonary disease, unspecified; E78.00 Pure hypercholesterolemia, unspecified; I10 Essential (primary) hypertension; Z88.0 Allergy status to penicillin
CPT/HCPCS: 36415; 70450; 80048; 80320; 83735; 85025; 85610; 93005; 96360; 99285

== ENCOUNTER 2019-06-07 16:34 | Observation (INO) | payer OTHER ==
--- OUTSIDE RECORDS SUMMARY | 2019-06-07 16:36 | XMS REPORT ---
:1950 [facility] Address [address] [place] [address] Dr. Dawn [address] [place] [id number] Care Team Providers Name Role Phone Unavailable Unavailable Unavailable Problems This patient has no known problems. Allergies, Adverse Reactions, Alerts This patient has no known allergies or adverse reactions. Medications This patient has no known medications.
[2019-06-07] MEDS ORDERED: METOPROLOL TARTRATE 5 MG/5 ML INJ IV ONE ×2 (16:51→17:04)
[2019-06-07] MEDS ORDERED: NA CHLORIDE 0.9% 100 ML IV ONE (16:51)
[2019-06-07] MEDS ORDERED: METOPROLOL TAR 50 MG TAB ONE (16:51)
[2019-06-07] MEDS ORDERED: NA CHLORIDE 0.9% 1,000 ML ONE (16:51)
[2019-06-07] MEDS ORDERED: ENOXAPARIN 60 MG/0.6 ML SQ ONE (17:04)
[2019-06-07 17:06] LABS: Absolute Lymphocytes (CBC) 1.3 K/uL (0.7-4.9); Basophils % 0.7 % (0-1.3); Hematocrit 41.1 % (36.0-45.0); Lymphocytes % 13.7 % (15.3-44.8); MPV 6.9 fL (7.6-11.3); RBC Red Blood Cell Count 3.81 M/uL (3.86-4.86)
[2019-06-07 17:13] LABS: Protime INR 0.84
[2019-06-07] MEDS ORDERED: FENTANYL CITR 100 MCG/2 ML ONE (17:19)
[2019-06-07] MEDS ORDERED: MIDAZOLAM HCL 2 MG/2 ML INJ ONE (17:21)
[2019-06-07 17:29] LABS: Albumin 3.9 g/dL (3.4-5.0); Bilirubin Direct 0.3 mg/dL (0-0.2); Bilirubin Total 0.7 mg/dL (0.2-1.0); Magnesium 2.6 mg/dL (1.8-2.4); Potassium 3.6 mmol/L (3.5-5.1); Troponin (Emerg Dept Use Only) 0.15 ng/mL (0.0-0.045)
--- NOTE | 2019-06-07 17:32 | RAD REPORT ---
EXAM DESCRIPTION: RAD - Chest Single View - 06/07/2019 5:21 pm CLINICAL HISTORY: CHEST PAIN Chest pain. COMPARISON: <Comparisons> FINDINGS: Portable technique limits examination quality. The lungs are grossly clear. The heart is upper limit of normal in size. No displaced fractures.Promi nent degenerative changes present both shoulders. IMPRESSION: No acute intrathoracic process suspected.
[2019-06-07 17:51] LABS: Anisocytosis 1+; Blood Morphology Comment NOTED (NOT SEEN); Platelet Estimate ADEQ; Urine White Blood Cell Casts OK
--- NOTE | 2019-06-07 18:41 | ER ---
Nurse's Notes [facility] Name: Lucie Maldonado Age: 69 yrs Sex: Female : 1950 Arrival Date: 06/07/2019 Time: 16:35 Bed 6 Private MD: Efe Hernandez Diagnosis: Atrial fibrillation and flutter-with RVR;Elevated Troponin Presentation: 06/07 16:41 Presenting complaint: Patient states: I have been having left shoulder pain and then la1 more recently a sore throat and these episodes where I get all sweaty, it has happened a few times today. Transition of care: patient was not received from another setting of care. Onset of symptoms was June 07, 2019. Risk Assessment: Do you want to hurt yourself or someone else? Patient reports no desire to harm self or others. Initial Sepsis Screen: Does the patient meet any 2 criteria? No. Patient's initial sepsis screen is negative. Does the patient have a suspected source of infection? No. Patient's initial sepsis screen is negative. Care prior to arrival: None. 16:41 Method Of Arrival: Wheelchair la1 16:41 Acuity: CECILIA 2 la1 Historical: - Allergies: 16:40 PENICILLINS; la1 - PMHx: 16:40 cardiomyopathy; COPD; High Cholesterol; Hypertension; la1 - Immunization history:: Adult Immunizations up to date. - Social history:: Smoking status: unknown. - Ebola Screening: : No symptoms or risks identified at this time. Screenin:12 Abuse screen: Denies threats or abuse. Denies injuries from another. Nutritional rv screening: No deficits noted. Tuberculosis screening: No symptoms or risk factors identified. Fall Risk None identified. Assessment: 17:12 General: Appears in no apparent distress. Behavior is calm, cooperative. Pain: rv Complains of pain in chest Pain does not radiate. Pain began suddenly. Neuro: Level of Consciousness is awake, alert, obeys commands, Oriented to person, place, time, situation. Cardiovascular: Rhythm is atrial fibrillation with rapid ventricular response With PVC's. Respiratory: Airway is patent. GI: No signs and/or symptoms were reported involving the gastrointestinal system. : No signs and/or symptoms were reported regarding the genitourinary system. EENT: No signs and/or symptoms were reported regarding the EENT system. Derm: Skin is intact. 17:13 Reassessment: hooked the patient on defib pads. rv 18:17 Reassessment: Patient appears in no apparent distress at this time. PATIENT CONVERTED rv RHYTHM FROM AF RVR TO SINUS TACHYCARDIA. MONITORING POST PROCEDURE. 19:11 Reassessment: report received from Mio MENESES that pt is fully awake and alert. family at jl7 bedside. pt and family informed of need for admit. 20:11 Reassessment: pt taken via wheelchair to restroom. ak1 21:57 Reassessment: Patient and/or family updated on plan of care and expected duration. Pain ea level reassessed. Patient is alert, oriented x 3, equal unlabored respirations, skin warm/dry/pink. Pt admitted to fourth floor, pt left ED via stretcher, pt tolerating well. No s/s of pain or discomfort noted at this time. Pt tolerating well. Vital Signs: 16:40 BP 146 / 108; Pulse 106; Resp 18; Temp 97.6(O); Pulse Ox 98% on R/A; Weight 51.71 kg; la1 Height 5 ft. 3 in. (160.02 cm); 16:49 BP 135 / 116; Pulse 147; Resp 24; Pulse Ox 99% on R/A; rv 17:00 BP 141 / 100; Pulse 145; Resp 19; Pulse Ox 99% on R/A; rv 17:05 BP 139 / 109; Pulse 146; Resp 20; Pulse Ox 98% on R/A; rv 17:15 BP 117 / 88; Pulse 143; Resp 19; Pulse Ox 97% on R/A; rv 17:30 Pulse 132; ss 18:00 BP 140 / 97; Pulse 109; Resp 14; Pulse Ox 98% on 2 lpm NC; rv 18:45 BP 134 / 90; Pulse 111; Resp 16; Pulse Ox 99% on 2 lpm NC; rv 19:30 BP 141 / 84; Pulse 106; Resp 18; Pulse Ox 99% on R/A; ea 20:30 BP 152 / 100; Pulse 101; Resp 18; Pulse Ox 97% on R/A; ea 21:30 BP 150 / 84; Pulse 109; Resp 18; Pulse Ox 96% ; ea 16:40 Body Mass Index 20.19 (51.71 kg, 160.02 cm) la1 ED Course: 16:35 Patient arrived in ED. as 16:38 Efe Hernandez MD is Private Physician. as 16:39 Arm band placed on left wrist. la1 16:42 Triage completed. la1 16:42 Ashish Alejandra, ZAIRA is Primary Nurse. rv 16:43 Deandre Soria PA is [facility]. jr8 16:43 Rafat Tay MD is Attending Physician. jr8 16:55 Inserted saline lock: 20 gauge in left antecubital area, using aseptic technique. Blood rv collected. 16:55 Inserted saline lock: 22 gauge in right antecubital area, using aseptic technique. rv 17:05 EKG done, by ED staff, reviewed by Rafat Tay MD. ms 17:12 Patient has correct armband on for positive identification. Placed in gown. Bed in low rv position. Call light in reach. Side rails up X 1. Adult w/ patient. supervisor sawmill on. Pulse ox on. NIBP on. 17:13 Patient maintains SpO2 saturation greater than 95% on room air. rv 17:25 XRAY Chest (1 view) In Process Unspecified. EDMS 18:18 Assist provider with cardioversion (synchronized) with pads, for treatment of A fib rv with 200 joules X 3. Set up for procedure. Performed by Deandre DIOP Monitored with custodial manager, pulse ox, Post procedure rhythm is SINUS TACHYCARDIA. Patient tolerated well. 18:40 Efe Hernandez MD is Hospitalizing Provider. jr8 21:21 Patient admitted, IV remains in place. ea Administered Medications: 16:55 Drug: Lopressor 5 mg Route: IVP; Site: left antecubital; rv 17:00 Drug: Lopressor 5 mg Route: IVP; Site: left antecubital; rv 17:05 Drug: Lopressor 5 mg Route: IVP; Site: left antecubital; rv 18:23 Follow up: Response: No adverse reaction rv 17:10 Drug: Lovenox 1 mg/kg Route: Sub-Q; Site: abdomen; rv 18:23 Follow up: Response: No adverse reaction rv 17:55 Drug: fentaNYL (PF) 50 mcg {Note: RASS 0.} Route: IVP; Site: left antecubital; rv 17:57 Drug: Versed 2 mg Route: IVP; Site: left antecubital; rv 18:23 Follow up: Response: RASS: Moderate sedation (-3) rv 18:00 Drug: fentaNYL (PF) 50 mcg {Note: RASS -3.} Route: IVP; Site: left antecubital; rv 18:00 Follow up: Response: RASS: Moderate sedation (-3) rv 18:22 Follow up: Response: Pain is decreased; RASS: Light sedation (-2) rv Outcome: 18:40 Decision to Hospitalize by Provider. jr8 19:11 Condition: improved jl7 19:11 Instructed on the need for admit. 21:58 Admitted to Med/surg accompanied by tech, room 415, with chart, Report called to eufemia Navarro RN 22:05 Patient left the ED. eufemia Signatures: Dispatcher [employer] EDMS Mariel Gonzalez Maria ms Smirch, Shelby, RN RN Deandre Bro PA PA jr8 Jayson Agustin RN RN la1 Nemo Avendaño RN RN destini1 Summer Estrella RN RN jl7 Noy Martines RN RN ea Vicente, Ronaldo RN RN rv
--- NOTE | 2019-06-07 18:41 | EDPHYS ---
Physician Documentation [facility] Name: Lucie Maldonado Age: 69 yrs Sex: Female : 1950 Arrival Date: 06/07/2019 Time: 16:35 Bed 6 Private MD: Efe Hernandez ED Physician Rafat Tay HPI: 06/07 17:11 This 69 yrs old Female presents to ER via Wheelchair with complaints of Chest jr8 Pain. 17:11 Onset: The symptoms/episode began/occurred acutely, today. Modifying factors: The jr8 patient symptoms are alleviated by nothing, the patient symptoms are aggravated by nothing. The patient has experienced similar episodes in the past, a few times. The patient has not recently seen a physician. Patient stated that she has had on/off fluttering in her chest that will come and go. Stated that she has also had sore throat and sweating randomly . Historical: - Allergies: 16:40 PENICILLINS; la1 - PMHx: 16:40 cardiomyopathy; COPD; High Cholesterol; Hypertension; la1 - Immunization history:: Adult Immunizations up to date. - Social history:: Smoking status: unknown. - Ebola Screening: : No symptoms or risks identified at this time. ROS: 17:13 Eyes: Negative for injury, pain, redness, and discharge, Neck: Negative for injury, jr8 pain, and swelling, Respiratory: Negative for shortness of breath, cough, wheezing, and pleuritic chest pain, Abdomen/GI: Negative for abdominal pain, nausea, vomiting, diarrhea, and constipation, Back: Negative for injury and pain, MS/Extremity: Negative for injury and deformity, Skin: Negative for injury, rash, and discoloration, Neuro: Negative for headache, weakness, numbness, tingling, and seizure. 17:13 ENT: Positive for sore throat. 17:13 Cardiovascular: Positive for palpitations. Exam: 17:13 Eyes: Pupils equal round and reactive to light, extra-ocular motions intact. Lids and jr8 lashes normal. Conjunctiva and sclera are non-icteric and not injected. Cornea within normal limits. Periorbital areas with no swelling, redness, or edema. Neck: Trachea midline, no thyromegaly or masses palpated, and no cervical lymphadenopathy. Supple, full range of motion without nuchal rigidity, or vertebral point tenderness. No Meningismus. Respiratory: Lungs have equal breath sounds bilaterally, clear to auscultation and percussion. No rales, rhonchi or wheezes noted. No increased work of breathing, no retractions or nasal flaring. Abdomen/GI: Soft, non-tender, with normal bowel sounds. No distension or tympany. No guarding or rebound. No evidence of tenderness throughout. Back: No spinal tenderness. No costovertebral tenderness. Full range of motion. Skin: Warm, dry with normal turgor. Normal color with no rashes, no lesions, and no evidence of cellulitis. MS/ Extremity: Pulses equal, no cyanosis. Neurovascular intact. Full, normal range of motion. Neuro: Awake and alert, GCS 15, oriented to person, place, time, and situation. Cranial nerves II-XII grossly intact. Motor strength 5/5 in all extremities. Sensory grossly intact. Cerebellar exam normal. Normal gait. 17:13 ENT: Exam is negative for earache, ear discharge, TM abnormalities, nasal discharge, Posterior pharynx: Airway: patent, Uvula: midline, ulcerations throughout posterior pharynx and oral mucosa noted . 17:13 Cardiovascular: Rate: tachycardic, Rhythm: irregularly irregular, Pulses: Pulses are 1+ in right radial artery and left radial artery. Heart sounds: normal, normal S1and S2, no S3 or S4, Edema: is not appreciated. Vital Signs: 16:40 BP 146 / 108; Pulse 106; Resp 18; Temp 97.6(O); Pulse Ox 98% on R/A; Weight 51.71 kg; la1 Height 5 ft. 3 in. (160.02 cm); 16:49 BP 135 / 116; Pulse 147; Resp 24; Pulse Ox 99% on R/A; rv 17:00 BP 141 / 100; Pulse 145; Resp 19; Pulse Ox 99% on R/A; rv 17:05 BP 139 / 109; Pulse 146; Resp 20; Pulse Ox 98% on R/A; rv 17:15 BP 117 / 88; Pulse 143; Resp 19; Pulse Ox 97% on R/A; rv 17:30 Pulse 132; ss 18:00 BP 140 / 97; Pulse 109; Resp 14; Pulse Ox 98% on 2 lpm NC; rv 18:45 BP 134 / 90; Pulse 111; Resp 16; Pulse Ox 99% on 2 lpm NC; rv 19:30 BP 141 / 84; Pulse 106; Resp 18; Pulse Ox 99% on R/A; ea 20:30 BP 152 / 100; Pulse 101; Resp 18; Pulse Ox 97% on R/A; ea 21:30 BP 150 / 84; Pulse 109; Resp 18; Pulse Ox 96% ; ea 16:40 Body Mass Index 20.19 (51.71 kg, 160.02 cm) la1 Procedures: 18:08 Cardioversion: (synchronized) for treatment of A fib, with 200 joules X 3. Post jr8 procedure rhythm is sinus rhythm, the patient tolerated the procedure well. Moderate sedation: Pre-procedure assessment: the patient has been NPO 4 hour(s) prior to arrival, ASA physical classification: III - organic disease with definite functional impairment, Airway assessment: able to hyperextend neck, able to maintain airway, can open mouth without difficulty, Monitoring during procedure: monitoring tech, continuous pulse oximetry, nurse at bedside at all times, Medications employed: Fentanyl, 100 mcg(s), Versed, 2 mg(s), Post-procedure assessment: the patient is moderately sedated, Ureña sedation score: 4 - brisk response to a light glabellar tap, Respiratory status: even and unlabored, a reversal agent was not used. MDM: 16:43 Patient medically screened. jr8 18:08 Data reviewed: vital signs, nurses notes, lab test result(s), EKG, radiologic studies, jr8 plain films. Data interpreted: Pulse oximetry: on room air is 97 %. Interpretation: normal. Counseling: I had a detailed discussion with the patient and/or guardian regarding: the historical points, exam findings, and any diagnostic results supporting the discharge/admit diagnosis, lab results, radiology results, the need to transfer to another facility, for higher level of care, [facility] does not immediately have the required specialist. ED course: Originally talked to Dr. Baer with patients spa receptionist group who agrees that cardioversion should be completed. Conversion successful. Calling Dr. Baer back because troponin is elevated. 18:39 ED course: Dr. Baer good with keeping patient at our facility for obs and troponin jr8 trend. Family and patient good with this. Dr. Hernandez called and accepted . 06/07 16:43 Order name: Basic Metabolic Panel; Complete [facility]: 17:40 [facility] 16:43 Order name: CBC with Diff; Complete Time: 18:04 [facility] 06/07 16:43 Order name: LFT's; Complete Time: 17:40 [facility] 06/07 16:43 Order name: Magnesium; Complete Time: 17:40 [facility] 06/07 16:43 Order name: NT PRO-BNP; Complete Time: 17:40 [facility] 06/07 16:43 Order name: PT-INR; Complete Time: 17:19 [facility] 06/07 16:43 Order name: Troponin (emerg Dept Use Only); Complete Time: 17:40 [facility] 06/07 17:16 Order name: CBC Smear Scan; Complete Time: 18:04 [facility] 06/07 18:35 Order name: T4 Free [facility] 06/07 18:35 Order name: TSH [facility] 06/07 18:39 Order name: ETOH Level; Complete Time: 09:58 [facility] 06/07 19:46 Order name: T4 Free; Complete Time: 09:58 [facility] 06/07 19:46 Order name: Thyroid Stimulating Hormone; Complete Time: 09:58 EDMS 06/07 20:33 Order name: Urine Dipstick--Ancillary (enter results) ds4 06/07 16:43 Order name: XRAY Chest (1 view); Complete Time: 18:04 [facility] 06/07 16:43 Order name: EKG; Complete Time: 16:44 [facility] 06/07 16:43 Order name: Cardiac monitoring; Complete Time: 17:05 [facility] 06/07 16:43 Order name: EKG - Nurse/Tech; Complete Time: 17:05 [facility] 06/07 16:43 Order name: IV Saline Lock; Complete Time: 17:05 [facility] 06/07 16:43 Order name: Labs collected and sent; Complete Time: 17:05 [facility] 06/07 16:43 Order name: O2 Per Protocol; Complete Time: 17:05 [facility] 06/07 16:43 Order name: O2 Sat Monitoring; Complete Time: 17: [facility] 06/07 18:45 Order name: CONS Physician Consult EDSD 06/07 20:43 Order name: Urine Dipstick-Ancillary; Complete Time: 09:58 EDMS Administered Medications: 16:55 Drug: Lopressor 5 mg Route: IVP; Site: left antecubital; rv 17:00 Drug: Lopressor 5 mg Route: IVP; Site: left antecubital; rv 17:05 Drug: Lopressor 5 mg Route: IVP; Site: left antecubital; rv 18:23 Follow up: Response: No adverse reaction rv 17:10 Drug: Lovenox 1 mg/kg Route: Sub-Q; Site: abdomen; rv 18:23 Follow up: Response: No adverse reaction rv 17:55 Drug: fentaNYL (PF) 50 mcg {Note: RASS 0.} Route: IVP; Site: left antecubital; rv 17:57 Drug: Versed 2 mg Route: IVP; Site: left antecubital; rv 18:23 Follow up: Response: RASS: Moderate sedation (-3) rv 18:00 Drug: fentaNYL (PF) 50 mcg {Note: RASS -3.} Route: IVP; Site: left antecubital; rv 18:00 Follow up: Response: RASS: Moderate sedation (-3) rv 18:22 Follow up: Response: Pain is decreased; RASS: Light sedation (-2) rv Disposition: 06/08 17:50 Co-signature as Attending Physician, Rafat Tay MD Did not see or evaluate patient. ps1 Chart signed for administrative purposes. Not an endorsement of care. . Disposition: 06/07/19 18:40 Hospitalization ordered by Efe Hernandez for Observation. Preliminary diagnosis are Atrial fibrillation and flutter - with RVR, Elevated Troponin. - Bed requested for Telemetry/MedSurg (observation). - Status is Observation. ea - Condition is Stable. - Problem is new. - Symptoms have improved. UTI on Admission? No Signatures: Dispatcher [employer] EDMS Deandre Soria PA PA jr8 Jayson Agustni RN RN la1 Noy Martines RN Rafat Ramirez ea, MD MD ps1 Tammy Scales mw2 Ashish Alejandra, RN RN rv Corrections: (The following items were deleted from the chart) 06/07 17:13 17:11 Patient stated that she has had on/off fluttering in her chest that will come and jr8 go. Stated that she has also had sore throat. jr8 18:40 18:40 Hospitalization Ordered by Efe Hernandez MD for Observation. Preliminary jr8 diagnosis is Atrial fibrillation and flutter; Elevated Troponin. Bed requested for Telemetry/MedSurg (observation). Status is Observation. Condition is Stable. Problem is new. Symptoms have improved. UTI on Admission? No. jr8 20:58 18:40 06/07/2019 18:40 Hospitalization Ordered by Efe Hernandez MD for Observation. mw2 Preliminary diagnosis is Atrial fibrillation and flutter - with RVR; Elevated Troponin. Bed requested for Telemetry/MedSurg (observation). Status is Observation. Condition is Stable. Problem is new. Symptoms have improved. UTI on Admission? No. jr8 22:05 20:58 06/07/2019 18:40 Hospitalization Ordered by Efe Hernandez MD for Observation. ea Preliminary diagnosis is Atrial fibrillation and flutter - with RVR; Elevated Troponin. Bed requested for Telemetry/MedSurg (observation). Status is Observation. Condition is Stable. Problem is new. Symptoms have improved. UTI on Admission? No. mw2
[2019-06-07 19:46] LABS: Thyroid Stimulating Hormone 2.13 uIU/mL (0.360-3.740)
[2019-06-07 20:43] LABS: Urine Blood 2+ (NEG); Urine Glucose NEGATIVE (NEG); Urine Protein 1+ (NEG); Urine Specific Gravity 1.025 (1.005-1.030); Urine pH 5.5 (5.0-7.0)
[2019-06-07 22:33] VITALS: BMI 21.7
[2019-06-07] MEDS ORDERED: APIXABAN 5 MG TABLET PO SCH (22:40)
[2019-06-07] MEDS ORDERED: ONDANSETRON 4 MG/2 ML VIAL IV PRN (22:40)
[2019-06-07] MEDS ORDERED: MORPHINE 4 MG/ML SYR IV PRN (22:40)
[2019-06-07] MEDS ORDERED: cloNIDine HCL 0.1 MG TAB PO PRN ×2 (23:33→23:40)
[2019-06-07] MEDS ORDERED: DIAZEPAM 5 MG TABLET PO PRN (23:33)
[2019-06-08 03:59] LABS: Absolute Lymphocytes (CBC) 0.6 K/uL (0.7-4.9); Basophils % 0.5 % (0-1.3); Hematocrit 34.2 % (36.0-45.0); Lymphocytes % 7.2 % (15.3-44.8); MPV 7.2 fL (7.6-11.3); RBC Red Blood Cell Count 3.22 M/uL (3.86-4.86)
[2019-06-08 04:06] LABS: BUN Blood Urea Nitrogen 12 mg/dL (7-18); Bicarbonate 29 mmol/L (21-32); Glucose Level 104 mg/dL (74-106); Potassium 3.3 mmol/L (3.5-5.1); Sodium Level 139 mmol/L (136-145)
[2019-06-08] MEDS ORDERED: ENOXAPARIN 60 MG/0.6 ML SQ ONE (05:00)
[2019-06-08 05:25] LABS: Blood Morphology Comment NOTED (NOT SEEN); Platelet Estimate ADEQ
[2019-06-08 05:26] LABS: Macrocytosis 1+
--- NOTE | 2019-06-08 05:30 | EKG ---
Test Date: 2019-06-07 Test Time: 18:04:[address] Worker: RV MEASUREMENT RESULTS: Intervals: Rate: 108 MT: 150 QRSD: 88 QT: 368 QTc: 493 [place]: P: 49 MT: 150 QRS: 52 T: 53 INTERPRETIVE STATEMENTS: Sinus tachycardia Possible Left atrial enlargement Borderline ECG Compared to ECG 06/07/2019 16:48:26 Atrial fibrillation no longer present Left ventricular hypertrophy no longer present ST (T wave) deviation no longer present Electronically Signed On 06-08-19 05:29:58 DEMAND GENERATOR MANAGER by Chavo Magana
--- NOTE | 2019-06-08 05:31 | EKG ---
Test Date: 2019-06-07 Test Time: 16:48:26 Clerk Of Works: RV MEASUREMENT RESULTS: Intervals: Rate: 201 [place]: QRSD: 86 QT: 202 QTc: 369 [place]: P: [place]: QRS: 64 T: 240 INTERPRETIVE STATEMENTS: Atrial fibrillation with rapid ventricular response Minimal voltage criteria for LVH, may be normal variant Marked ST abnormality, possible inferior subendocardial injury Marked ST abnormality, possible anterolateral subendocardial injury Abnormal ECG Compared to ECG 02/20/2019 19:29:25 Left ventricular hypertrophy now present ST (T wave) deviation now present Sinus rhythm no longer present T-wave abnormality no longer present Prolonged QT interval no longer present Electronically Signed On 06-08-19 05:30:28 FLIGHT SOFTWARE TEST ENGINEER by Chavo Magana
[2019-06-08] MEDS: DIAZEPAM 5 MG TABLET PO SCH ×5 (05:47→23:45)
[2019-06-08] MEDS: ACETAMINOPHEN 500 MG TAB PO PRN ×2 (06:31→16:29)
[2019-06-08] MEDS ORDERED: MORPHINE 2 MG/ML SYR IV PRN (07:52)
[2019-06-08] MEDS ORDERED: INFLUENZA VACCINE (for 3y+) 0.5 ML DOSE IMVAC ONE (08:00)
[2019-06-08] MEDS: NEBIVOLOL HCL 5 MG TAB PO SCH ×2 (08:27)
--- NOTE | 2019-06-08 09:00 | EKG ---
Test Date: 2019-06-08 Test Time: 07:25:44 Drop Board Worker: KRISTOFER MEASUREMENT RESULTS: Intervals: Rate: 87 SD: 144 QRSD: 84 QT: 404 QTc: 486 [place]: P: 44 SD: 144 QRS: 18 T: 53 INTERPRETIVE STATEMENTS: Normal sinus rhythm Possible Left atrial enlargement Nonspecific ST abnormality Abnormal ECG Compared to ECG 06/07/2019 18:04:49 ST (T wave) deviation now present Sinus tachycardia no longer present Electronically Signed On 06-08-19 08:59:49 CNC MILLING MACHINIST by Fracisco Randle
[2019-06-08] MEDS: NA CHLORIDE 0.9% 1,000 ML IV SCH ×2 (12:00)
--- NOTE | 2019-06-08 14:32 | CON ---
Admitted to Dr. Hernandez on 06/07/2019. Reason For Consultation: Atrial fibrillation with rapid ventricular response, new onset. History Of Present Illness: Ms. Maldonado is a 69-year-old woman who has a history of hypertrophic ca rdiomyopathy, COPD, hypertension, dyslipidemia, alcohol use, came in with an episode of atrial fibril lation. She is status post cardioversion in the emergency room to sinus rhythm. She remains in sinu s rhythm today. Chest x-ray was negative. Last EKG showed sinus rhythm. Her was potassium 3.3. He r troponin was 0.37. Her BNP was 2714. She is asymptomatic today and wants to go home today. Allergies: PENICILLIN. Review of Systems: Negative. Social History: Positive for alcohol. Family History: Noncontributory. Medications: At home include aspirin, inhalers, , verapamil, Norpace, Zetia, and Bystolic. Physical Examination: General: She was in sinus rhythm. No acute distress. Pleasant. Vital Signs: Stable. Afebrile. HEENT: Negative. Neck: Supple with no bruit. Chest: Clear. Cardiac: Regular rhythm and rate. S4 gallop. Abdomen: Benign. Extremities: No clubbing, cyanosis, or edema. Skin: Dry and intact. Neurologic: She was nonfocal. Vascular: Pulses were present bilaterally, symmetrically. Diagnostic Data: As stated earlier. Impression And Plan: 1.Rapid atrial fibrillation episode, first episode, status post cardioversion. She is in normal rhy thm. I will continue her verapamil and her Bystolic, agree with adding Eliquis and I think she needs to see her cardiology in [place] in the near future to decide on the continuation of Eliquis. With her cardiomyopathy and all other issues, she has a very high CHADS score. She is certainly a cristal te for stroke and I think anticoagulation is very reasonable. 2.Elevated troponin secondary to atrial fibrillation. 3.Hypokalemia, . 4.Hypertrophic cardiomyopathy with mitral regurgitation treated medically by her chair mechanic in [facility] with Norpace, verapamil, and Bystolic. 5.Lastly, she has dyslipidemia and chronic obstructive pulmonary disease that seem well controlled. From my standpoint, she can go home on her home medicine except the Eliquis. Follow up with her car diologist in the near future and then make decisions in regard to her heart rhythm if this becomes a chronic issue. The case was discussed with Dr. Villanueva and the family. BROOKE/MINDI Voice ID: [id number] Report ID: [id number]
[2019-06-08] MEDS ORDERED: VERAPAMIL SR 180 MG TAB PO SCH (21:00)
[2019-06-08] MEDS ORDERED: ATORVASTATIN 20 MG TAB PO SCH (21:00)
[2019-06-08] MEDS ORDERED: ZOLPIDEM TARTRATE 5 MG TABLET PO SCH (21:00)
[2019-06-09] MEDS: DIAZEPAM 5 MG TABLET PO SCH ×4 (00:30→17:30)
--- NOTE | 2019-06-09 06:24 | HP ---
Date of Admission: 06/07/2019 Chief Complaint: Rapid heartbeat. History Of Present Illness: Patient states she first noticed her heart beating rapidly couple of giovani rs before presenting to the emergency room. She called the office and was instructed to come to the ER, at which time diagnosis of atrial fibrillation with RVR was made and she was admitted for further treatment. She did not respond to IV beta-blockers and required shock x2 to restore her sinus rhyth m and then she was admitted. Past History: Patient has a long history of cardiac problems, not including atrial fibrillation. Radha phillips is seen by paste worker in [place] on regular basis, on numerous medications for her cardiomyopathy . Patient has also been hospitalized for other problems including musculoskeletal. She also has a hist ory of alcohol abuse. Family History: Noncontributory. Social History: As mentioned above. Physical Examination: Vital Signs: At the time she was seen, her vital signs were stable. GENERAL: She had no discomfort other than longstanding left shoulder pain. Head and Neck: Normocephalic. Pupils equal and reactive to light and accommodation. Fundi negative. Trachea midline. Thyroid not palpable. ENT: Negative. Chest: Clear to P and A. Cardiovascular: PMI midclavicular line. Heart: Sounds normal. Peripheral pulses present and equal bilaterally. Abdomen: No organomegaly. Bowel sounds present. Extremities: Good tone and movement bilaterally. Reflexes physiologic. Rectal/Pelvic: Deferred. Impression: Atrial fibrillation with RVR; hypertension, controlled; alcohol abuse. Plan: Patient will be admitted, placed on telemetry. Beta-blockers will be continued. Cardiology w ill be consulted as well as a paste worker in [place] as there are some questions about the use of an ticoagulants. Here, she was placed on Lovenox and Eliquis, which she has not required in the past. Depending on her progress as well as her rhythm is controlled, I expect she will stay 1 or 2 days. HR/MODL Voice ID: [id number]
--- NOTE | 2019-06-09 06:48 | PN ---
Date of Progress Note: 06/08/2019 Patient states she feels much better today. She had no recurrence of her atrial fibrillation. Her a ppetite has improved. Her intake has improved. In discussing the case with garage door opener installer in [place], the garage door opener installer felt that she would be a good candidate for Eliquis and that can also be utilized t o treat her alcoholism at the time of discharge. HR/MODL Voice ID: [id number] Report ID: [id number]
[2019-06-09] MEDS ORDERED: NEBIVOLOL HCL 5 MG TAB PO SCH (09:00)
[2019-06-09] MEDS ORDERED: ASPIRIN EC 81 MG TAB PO SCH (09:00)
[2019-06-09] MEDS ORDERED: EZETIMIBE 10 MG TAB PO SCH (09:00)
--- NOTE | 2019-06-09 09:12 | ECHO ---
HEIGHT: 5 ft 3 in WEIGHT: 123 lb 0 oz DATE OF STUDY: 06/08/[address]: Naresh Soria 2-DIMENSIONAL: YES M.MODE: YES DOPPLER: YES COLOR FLOW: YES TDS: NO PORTABLE: NO DEFINITY: NO BUBBLE STUDY: NO DIAGNOSIS: ATRIAL FIBRILLATION CARDIAC HISTORY: CATHERIZATION: NO SURGERY: NO PROSTHETIC VALVE: NO PACEMAKER: NO MEASUREMENTS (cm) DIASTOLIC (NORMALS) SYSTOLIC (NORMALS) IVSd 1.1 (0.6-1.2) LA Diam 4.5 (1.9-4.0) LVEF 66% LVIDd 4.1 (3.5-5.7) LVIDs 2.6 (2.0-3.5) %FS 36% LVPWd 1.3 (0.6-1.2) Ao Diam 2.9 (2.0-3.7) 2 DIMENSIONAL ASSESSMENT: RIGHT ATRIUM: NORMAL LEFT ATRIUM: DILATED RIGHT VENTRICLE: NORMAL LEFT VENTRICLE: LEFT VENTRICULAR HYPERTROPHY TRICUSPID VALVE: NORMAL MITRAL VALVE: MITRAL ANNULAR CALCIFICATION PULMONIC VALVE: NORMAL AORTIC VALVE: STENOTIC PERICARDIAL EFFUSION: NONE AORTIC ROOT: NORMAL LEFT VENTRICULAR WALL MOTION: DECREASED LEFT VENTRICULAR COMPLIANCE. DOPPLER/COLOR FLOW: MILD TRICUSPID REGURGITATION. MODERATE PULMONARY HYPERTENSION. MILD TO MODERATE MITRAL REGURGITATION. MODERATE AORTIC STENOSIS. AORTIC VALVE AREA 1.4 CENTIMETERS SQUARED. COMMENTS: CONCENTRIC LEFT VENTRICULAR HYPERTROPHY. LEFT ATRIAL ENLARGEMENT. DECREASED LEFT VENTRICULAR COMPLIANCE. MODERATE PULMONARY HYPERTENSION. RIGHT VENTRICULAR SYSTOLIC PRESSURE 57 mmHg. MODERATE AORTIC STENOSIS. AORTIC VALVE AREA 1.4 CENTIMETERS SQUARED. MILD TRICUSPID REGURGITATION TECHNOLOGIST: Dandre ROBB
[2019-06-09 12:19] VITALS: BP 137/82; TEMP 97.1
[2019-06-09 16:48] VITALS: O2SAT 98
--- NOTE | 2019-06-09 19:36 | PN ---
Date of Progress Note: 06/09/2019 Patient feels better today. She states her energy level is improved, appetite is improved, and telem etry has been normal. In retrospect, I feel there is a strong possibility of arrhythmia being second ann-marie to alcoholism and then possible alcohol withdrawal syndrome. the Valium 5 mg q.i.d., hold the Ativan which I am not sure how she was taking and put her on the Eliquis. Otherw shameka, I discussed the situation with the validation specialist who wants her to continue on her usual blood pre ssure medication. This will be done. She will be followed up in the beginning of next week with me and the validation specialist in 2 weeks. HR/MODL Voice ID: [id number] Report ID: [id number]
== END 2019-06-09 18:07 | disposition home or self-care (01) ==
LOC: ER 16:34 → ERHOLD 18:43 → 4TH 21:22
PROVIDERS: ADMIT Family Medicine; ATTEND Family Medicine
PROC: 5A2204Z Restoration of Cardiac Rhythm, Single (ICD-10-PCS; principal; 2019-06-07)
DX: I48.91 Unspecified atrial fibrillation (principal); I10 Essential (primary) hypertension; F10.10 Alcohol abuse, uncomplicated; I42.2 Other hypertrophic cardiomyopathy; E87.6 Hypokalemia; E78.5 Hyperlipidemia, unspecified; J44.9 Chronic obstructive pulmonary disease, unspecified; Z88.0 Allergy status to penicillin
CPT/HCPCS: 92960; 93005 ×3; 93306; 85025 ×2; 80048 ×2; 36415; 80320; 83735; 85610; 82947; 80076; 84443; 81003; 84484 ×3; 84439; 83880; 71045; 96375; 96372; 96374; 99285; J2250; J3010; J1650 ×2; J7030 ×2; J2405; G0378 ×3

== ENCOUNTER 2019-12-12 23:13 | Inpatient (IN) | payer OTHER ==
--- OUTSIDE RECORDS SUMMARY | 2019-12-12 23:16 | XMS REPORT | Clinical Summary ---
:1950 Author Organization [facility] Address [address] [place] [address] Care Team Providers Name Role Phone Efe Hernandez MD Primary Care Provider Allergies Active Allergy Reactions Severity Noted Date Comments Penicillins 10/21/2017 As a baby Medications Medication Sig Dispensed Refills Start Date End Date Status BYSTOLIC 10 mg tablet Take 10 mg by 3 07/29/2017 Active mouth every morning. zolpidem (AMBIEN) 5 MG TAKE 1 TABLET BY 2 09/11/2017 Active tablet MOUTH AT BEDTIME NEEDED FOR INSOMIA SPIRIVA WITH INHALE THE 3 08/18/2017 Activ e HANDIHALER 18 mcg per CONTENTS OF 1 inhalation capsule CAPSULE BY MOUTH DAILY morning LORAZepam (ATIVAN) 1 Take 1 mg by mouth 0 Active MG tablet as needed. fluticasone (FLOVENT Inhale 2 puffs 0 Active HFA) 110 mcg/actuation every morning. inhaler guaifenesin/pseudoephe Take by mouth. 0 Active drne HCl (MUCINEX D ORAL) disopyramide phosphate Take 150 mg by 0 Active (NORPACE) 150 MG mouth daily. capsule verapamil sustained Take 180 mg by 0 Active release (CALAN-SR) 180 mouth nightly. MG SR tablet pitavastatin calcium Take 4 mg by mouth 0 Active (LIVALO) 2 mg tablet nightly. ezetimibe (ZETIA) 10 Take 10 mg by 0 Active mg tablet mouth daily. 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 Family History Medical History Relation Name Comments Heart disease Father Hypertension Mother Diabetes Sister Relation Name Status Comments Father Mother Sister Alive Social History Tobacco Use Types Packs/Day Years Used Date Never Smoker Smokeless Tobacco: Never Used Alcohol Use Drinks/Week oz/Week Comments Yes 7 Glasses of wine 7.0 Sex Assigned at Date Recorded Not on [...] of 2 - PCV13) 2014 INFLUENZA VACCINE 02/12/2020 Implants Implanted Type Area Instrument Calibrator Device Shelf Model / Identifier Expiration Serial / Lot Date Component Humrl Total Elbw Sys Sm 4in [place] Renee - [id number] Distal Joint N/A: N/A [employer] 08/13/2022 [id number] / Implanted: Qty: 1 on 11/03/2017 by Naresh Haskins MD at [facility] Orthopedic / Implants [id number] C/M Ulna Assembly 3in Xsml Rt - [id number] IMPLANT Right: [employer] 10/11/2022 [id number] / Implanted: Qty: 1 on 11/03/2017 by Naresh Haskins MD at [facility] DEVICES Humerus / [id number] Cement Bone Full-Dose Premxd W/ Tobr Simplex P Pack 10 /Ea - [id number] Surgical Bone Right: GIULIA 04/12/2019 [id number] / Implanted: 11/03/2017 at [facility] (Quantity not on file) Deep ent Humerus ORTHOPEDICS / HIPS-KNEES [id number] Cement Bone Full-Dose Premxd W/ Tobr Simplex P Pack 10 /Ea - [id number] Surgical Bone Right: GIULIA 04/12/2019 [id number] / Implanted: 11/03/2017 at [facility] (Quantity not on file) Deep ent Humerus ORTHOPEDICS / HIPS-KNEES [id number] Results Not on fileafter 12/11/2018 Advance Directives For more information, please contact: [phone] Type Date 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
--- OUTSIDE RECORDS SUMMARY | 2019-12-12 23:16 | XMS REPORT ---
:1950 Author Organization [facility] t Address [address] [place] [address] Care Team Providers Name Role Phone Mary MENDEZ Primary Care Physician Problems Condition Condition Condition Status Onset Resolution Last Treating Co mments Source Name Details Category Date Date Treatment Clinician Date Hyponatrem Hyponatrem Disease Active [place] 4-24 Methodi 00:00: st 00 Arthritis Arthritis Disease Active Ara ston of elbow, of elbow, 4-23 Meth jessica right right 00:00: st 00 Allergies, Adverse Reactions, Alerts Allergy Allergy Status Severity Reaction(s) Onset Inactive Treating Comm ents Source Name Type Date Date Clinician Penicill Propensi Active As a baby Ara ston ins ty to 4-10 Methodi adverse 00:00: st reaction 00 s to drug Family History Family Member Diagnosis Comments Start Date Stop Date Source Natural father Heart disease [facility] Natural mother Hypertension [facility] Natural sister Diabetes [facility] thodi Social History Social Habit Start Date Stop Date Quantity Comments Source Sex Assigned At [facility] ethodist Alcohol intake 2018-02-02 2018-02-02 Current drinker [place] [facility] 00:00:00 00:00:00 of alcohol (finding) Smoking Status Start Date Stop Date Source Never smoker [facility] Medications Ordered Filled Start Stop Current Ordering Indication Dosage Frequency Signature Comments Components Source Medication Medication Date Date Medication? Clinician (SIG) Name Name LORAZepam Yes 1mg Take 1 mg Ara ston (ATIVAN) 1 7-23 by mouth Metho di MG tablet 10:03: as needed. st 56 fluticasone 2018-0 Yes 2{puff} QD Inhale 2 [place] (FLOVENT 7-23 puffs Methodi HFA) 110 10:03: every st mcg/actuati 56 morning. on inhaler guaifenesin 2017-0 Yes Take by [facility] st[facility] /pseudoephe 7-23 mouth. Method i drne HCl 10:03: st (MUCINEX D 56 ORAL) disopyramid Yes 150mg QD Take 150 [place] phosphate 7-23 mg by Methodi (NORPACE) 10:03: mouth st 150 MG 56 daily. capsule verapamil 2018 Yes 180mg QD Take 180 [facility] st[facility] sustained 7-23 mg by Methodi release 10:03: mouth st (CALAN-SR) 56 nightly. 180 MG SR tablet pitavastati Yes 4mg QD Take 4 mg [place] calcium 7-23 by mouth Method i (LIVALO) 2 10:03: nightly. st mg tablet 56 ezetimibe Yes 10mg QD Take 10 mg Ho robb (ZETIA) 10 7-23 by mouth Metho di mg tablet 10:03: daily. st 56 zolpidem 0 Yes TAKE 1 [place] (AMBIEN) 5 3-01 TABLET BY Meth jessica MG tablet 00:00: MOUTH AT st 00 BEDTIME NEEDED FOR INSOMIA SPIRIVA 0 Yes INHALE THE [place] WITH 2-05 CONTENTS Methodi HANDIHALER 00:00: OF 1 st 18 mcg per 00 CAPSULE BY inhalation MOUTH capsule DAILY morning BYSTOLIC 10 Yes 10mg QD Take 10 mg [place]ares mg tablet 1-16 by mouth Method i 00:00: every st 00 morning. Procedures This patient has no known procedures. Plan of Care Planned Activity Planned Date Details Comments Source Future Scheduled 2020-02-12 INFLUENZA VACCINE Lucretia [facility] 00:00:00 [code = INFLUENZA VACCINE] Future Scheduled 2014 65+ PNEUMOCOCCAL [facility] Test 00:00:00 VACCINE (1 of 2 - PCV13) [code = 65+ PNEUMOCOCCAL VACCINE (1 of 2 - PCV13)] Future Scheduled 1999 BREAST CANCER [facility] 00:00:00 SCREENING [code = BREAST CANCER SCREENING] Future Scheduled 1999 COLONOSCOPY SCREENING Daniel zamudio [facility] Test 00:00:00 [code = COLONOSCOPY SCREENING] Future Scheduled 1999 SHINGLES VACCINES (#1) H arya [facility] Test 00:00:00 [code = SHINGLES VACCINES (#1)] Results This patient has no known results.
--- OUTSIDE RECORDS SUMMARY | 2019-12-12 23:16 | XMS REPORT | Clinical Summary ---
:1950 Author Organization [facility] Address [address] [place] [address] Care Team Providers Name Role Phone MD Mary Primary Care Provider Allergies Active Allergy Reactions Severity Noted Date Comments Penicillins 07/21/2013 TOLD SINCE CONG CROSS THAT SHE IS ALLERGIC Medications Medication Sig [...] Problem Noted Date HOCM (hypertrophic obstructive cardiomyopathy) 014 Hypertrophic cardiomyopathy 07/21/2013 Social History Tobacco Use [...] Not on file Results Not on fileafter 12/11/2018 Insurance Payer Benefit Plan / Group Subscriber ID Type Phone A ddress CARE IMPROVEMENT MEDICARE MGD CARE IMPROVEMENT PLUS xxxxxxxxx CARE Advance Directives For more information, please contact:[place] [phone] [place], [place] [phone] Code Status Date Activated Date Inactivated Comments Full Code 10/30/2016 10:14 AM 10/30/2016 11:41 AM This code status was determined by: Patient Code ONE 07/21/2013 5:46 PM 07/23/2013 6:55 PM All possibl e means of support, including: cardi ac massage, mechanical ventilation, and defibrillation will be used to support life. Code ONE 07/21/2013 9:16 AM 07/21/2013 2:30 PM All possible means of support including;cardia c massage, mechanical ventilation, and defibrillation will be used to support life. Code ONE 06/23/2013 2:07 PM 06/24/2013 7:50 AM For Francis sesophageal Echo
[2019-12-12] MEDS ORDERED: MORPHINE 2 MG/ML SYR ONE (23:49)
[2019-12-12] MEDS ORDERED: ONDANSETRON 4 MG/2 ML VIAL ONE (23:50)
[2019-12-13] MEDS ORDERED: NA CHLORIDE 0.9% 500 ML ONE (00:19)
[2019-12-13 00:26] LABS: Protime INR 1.29
[2019-12-13 00:33] LABS: Absolute Lymphocytes (CBC) 0.8 K/uL (0.7-4.9); Basophils % 0.1 % (0-1.3); Hematocrit 23.7 % (36.0-45.0); Lymphocytes % 5.6 % (15.3-44.8); MPV 7.9 fL (7.6-11.3); RBC Red Blood Cell Count 2.32 M/uL (3.86-4.86)
[2019-12-13 00:39] LABS: ALT/SGPT 15 U/L (12-78); AST/SGOT 19 U/L (15-37); Albumin 2.7 g/dL (3.4-5.0); Alkaline Phosphatase 56 U/L (45-117); BUN Blood Urea Nitrogen 19 mg/dL (7-18); Bicarbonate 21 mmol/L (21-32); Bilirubin Direct 0.3 mg/dL (0-0.2); Bilirubin Total 0.9 mg/dL (0.2-1.0); Glucose Level 89 mg/dL (74-106); Magnesium 1.7 mg/dL (1.8-2.4); NT PRO-BNP 9181 pg/mL (<125); Potassium 3.1 mmol/L (3.5-5.1); Protein, Total 5.2 g/dL (6.4-8.2); Sodium Level 133 mmol/L (136-145)
[2019-12-13 00:40] LABS: Urine Blood NEGATIVE (NEG); Urine Glucose NEGATIVE (NEG); Urine Protein NEGATIVE (NEG); Urine Specific Gravity 1.025 (1.005-1.030); Urine pH 5.5 (5.0-7.0)
[2019-12-13] MEDS ORDERED: NA CHLORIDE 0.9% 250 ML ONE ×3 (00:56→16:43)
[2019-12-13 01:11] LABS: Blood Morphology Comment NOTED (NOT SEEN); Platelet Estimate ADEQ; Polychromasia 2+
[2019-12-13] MEDS ORDERED: MAGNESIUM SULFATE 1 gm IVPB 1 GM/100 ML BAG IV ONE (01:12)
[2019-12-13] MEDS ORDERED: POTASSIUM CL SA 10 MEQ TAB PO ONE (01:12)
[2019-12-13] MEDS ORDERED: VANCOMYCIN 1 GM/VIAL ONE (01:12)
[2019-12-13] MEDS ORDERED: LORazepam 2 MG/ML VIAL IV PRN (01:48)
[2019-12-13] MEDS ORDERED: MORPHINE 2 MG/ML SYR IV PRN (01:48)
[2019-12-13] MEDS ORDERED: VANCOMYCIN 1 GM in NA CHLORIDE 0.9% 250 ML IVPB SCH (02:00)
[2019-12-13] MEDS: NA CHLORIDE 0.9% 1,000 ML IV SCH ×2 (02:00→12:57)
[2019-12-13 03:38] VITALS: BMI 21.9
[2019-12-13] MEDS ORDERED: MORPHINE 4 MG/ML SYR IV PRN (05:49)
[2019-12-13 06:00] LABS: Absolute Lymphocytes (CBC) 0.7 K/uL (0.7-4.9); Basophils % 0.4 % (0-1.3); Hematocrit 25.1 % (36.0-45.0); Lymphocytes % 4.8 % (15.3-44.8); MPV 7.7 fL (7.6-11.3); RBC Red Blood Cell Count 2.44 M/uL (3.86-4.86)
[2019-12-13] MEDS: ONDANSETRON 4 MG/2 ML VIAL IV PRN ×2 (06:12→21:43)
[2019-12-13] MEDS ORDERED: KETOROLAC 30 MG/ML INJ IV PRN (06:14)
[2019-12-13] MEDS ORDERED: FENTANYL CITR 100 MCG/2 ML IV PRN ×2 (06:21→08:25)
[2019-12-13 06:39] LABS: ALT/SGPT 15 U/L (12-78); AST/SGOT 29 U/L (15-37); Albumin 2.7 g/dL (3.4-5.0); Alkaline Phosphatase 58 U/L (45-117); BUN Blood Urea Nitrogen 19 mg/dL (7-18); Bicarbonate 19 mmol/L (21-32); Bilirubin Direct 0.3 mg/dL (0-0.2); Bilirubin Total 1.2 mg/dL (0.2-1.0); Glucose Level 87 mg/dL (74-106); Potassium 3.7 mmol/L (3.5-5.1); Protein, Total 5.5 g/dL (6.4-8.2); Sodium Level 132 mmol/L (136-145)
[2019-12-13 06:40] LABS: Troponin I 1.72 ng/mL (0.0-0.045)
[2019-12-13] MEDS ORDERED: PNEUMOCOCCAL VACCINE 0.5 ML IMVAC ONE (08:00)
[2019-12-13] MEDS ORDERED: FENTANYL CITR 100 MCG/2 ML IV ONE (08:25)
--- NOTE | 2019-12-13 08:41 | RAD REPORT ---
EXAM DESCRIPTION: RAD - Ankle Right 3 View - 12/13/2019 12:03 am CLINICAL HISTORY: PAIN COMPARISON: No comparisons FINDINGS: No fracture, dislocation or periosteal reaction. No joint effusion seen. Moderate-sized pl yimi spur is present. Arterial calcifications present. There is spurring or focal calcification lan g the medial margin of the talus 1 centimeter below the medial malleolus. The patient has soft tissue swelling along the medial aspect of the joint. No air or foreign body in the soft tissues. IMPRESSION: Soft tissue swelling and mild for age degenerative change right ankle.
--- NOTE | 2019-12-13 08:41 | RAD REPORT ---
EXAM DESCRIPTION: RAD - Chest Single View - 12/13/2019 12:02 am CLINICAL HISTORY: FEVER COMPARISON: May 2019 TECHNIQUE: AP portable chest image was obtained 12/13/2019 12:02 am . FINDINGS: No focal mass or consolidation. Patient has an interstitial pattern that is mildly promine nt as a baseline. This could mask early viral infiltrate. No significant failure or volume overload. Heart size is within upper normal limits for portable imaging. No measurable pleural effusion and no pneumothorax. No acute bony abnormality seen. Aorta is tortuous but not clearly different. Fullness o f the mediastinum is not clearly different from prior imaging. IMPRESSION: No focal mass or consolidation. Baseline prominence of the interstitial pattern could mask early viral infiltrate.
[2019-12-13] MEDS: VERAPAMIL SR 180 MG TAB PO SCH (09:00)
[2019-12-13] MEDS: AMIODARONE HCL 200 MG TAB PO SCH (09:00)
[2019-12-13] MEDS ORDERED: ENOXAPARIN 100 MG/ML SYR SQ SCH (09:00)
[2019-12-13] MEDS ORDERED: APIXABAN 5 MG TABLET PO SCH (09:00)
[2019-12-13] MEDS: NEBIVOLOL HCL 20 MG TABLET PO SCH (09:00)
[2019-12-13] MEDS ORDERED: HEPA 1000U/500MLS 1,000 UNIT/500 ML BAG IV ONE (09:47)
[2019-12-13] MEDS ORDERED: HEPARIN 5000 UNIT/ML 1 ML VIAL ONE ×2 (09:48→09:49)
[2019-12-13] MEDS ORDERED: FENTANYL CITR 100 MCG/2 ML ONE (09:48)
[2019-12-13] MEDS ORDERED: NICARDIPINE HCL 25 MG/10 ML IV ONE (09:48)
[2019-12-13] MEDS ORDERED: MIDAZOLAM HCL 2 MG/2 ML INJ ONE (09:48)
[2019-12-13] MEDS ORDERED: ATROPINE SULF 1 MG/10 ML SYR IV ONE (09:49)
[2019-12-13] MEDS ORDERED: NITROGLYCERIN/D5W 0 MG/0 ML BTL IV ONE (09:49)
[2019-12-13] MEDS ORDERED: NITROGLYCERIN 100 MCG/ML SYR (for cath lab use only) IV ONE (09:49)
--- NOTE | 2019-12-13 10:04 | CON ---
Date of Consultation: 12/13/2019 Reason For Consultation: Elevated troponin. History Of Present Illness: This is a 69-year-old female, history of hypertrophic cardiomyopathy sta tus post septal alcohol ablation 4 years ago, history of chronic AFib, hypertension, and alcoholism, presented to the emergency room with right ankle swelling and pain, low-grade fever that has been wor sening over the past few days. Also reported some chest pressure. However, attention was drawn more to the ankle due to severity of the pain. She felt also heart racing. No dizziness. No syncope an d no diaphoresis. Chest pain is pressure like, no radiation and no associated other symptoms. The p crescencio has history of chronic AFib and she is on Eliquis and she claimed that the last dose she took was 2 days ago as it dropped her blood pressure some, so she has not taken it since, and it was not g iven during this hospital stay. Past Medical History: As outlined above in the HPI. Medications: Refer to reconciliation sheet for detailed list. Allergies: PENICILLIN. Social History: She is a chronic alcoholic and does not use any drugs. Family History: No premature coronary artery disease or cancer. Review of Systems: All systems reviewed were negative except mentioned in HPI. Physical Examination: Vital Signs: Showed temperature 100.0, pulse 125, breathing 18, blood pressure 109/62, satting 93% o n room air. General: Elderly female in no apparent distress. Head and Neck: Pupils are equal, react to light. Intact eye movements. No JVD. No cervical lympha denopathy. Neck: Supple. Thyroid is not enlarged. Lungs: Clear to auscultation bilaterally. No rhonchi, rales, crackles. No accessory muscle use. Heart: Regular rate, rhythm with diffuse systolic murmur. Abdomen: Soft, nontender. Bowel sounds positive. No organomegaly. No masses or hernia. No rigidi ty or rebound. Extremities: No clubbing or cyanosis. Intact pulses. Skin: There is swelling and local tenderness of the right ankle with mild edema. Neurologic: Alert, oriented x3. No acute focal deficits appreciated. Investigations: White blood cell count 15,200, hemoglobin is 8.3. Sodium 132, creatinine 0.59. Tro ponin is 1.72. Her EKG showed sinus tachycardia with significant inferolateral ST depression. Assessment And Recommendations: 1.Erx-OW-dcfriozib myocardial infarction. Significant EKG abnormalities. This could be demand isch emia due to the hypertrophic cardiomyopathy and the tachycardia that is due to her cellulitis. Howev er, with the chest pressure and the significant changes in EKG and elevated troponin, I recommend a c oronary angiogram. I discussed the case with the primary care physician and with the patient. Risks and benefits as well as alternatives were explained to her and she agreed to the plan. We will sche dule her for a selective coronary angiogram today this morning knowing that last time she took Eliqui s was 2 days ago. Recommend to start aspirin 81 mg and anticoagulation with intravenous heparin as w ell as statin and a beta gwendolyn if blood pressure allows. 2.History of atrial fibrillation. At this point, she is in sinus. Eliquis is put on hold for the p rocedure that we are doing today and continue amiodarone. 3.Hypertension. Blood pressure is acceptable. Continue home medications. 4.Hypertrophic cardiomyopathy history. Obtain echocardiogram and we will recommend a beta gwendolyn f or heart rate control. I appreciate letting me see your patient. /MINDI Voice ID: [id number] Report ID: [id number]
[2019-12-13] MEDS: CLINDAMYCIN INJ 900 MG in NA CHLORIDE 0.9% 50 ML IV SCH ×2 (10:53→17:01)
[2019-12-13] MEDS: LORazepam 2 MG/ML VIAL IV SCH ×2 (10:54→16:55)
[2019-12-13 12:02] LABS: Absolute Lymphocytes (CBC) 0.9 K/uL (0.7-4.9); Basophils % 0.4 % (0-1.3); Hematocrit 25.3 % (36.0-45.0); Lymphocytes % 4.5 % (15.3-44.8); RBC Red Blood Cell Count 2.45 M/uL (3.86-4.86)
[2019-12-13] MEDS ORDERED: NA CHLORIDE 0.9% 500 ML IV ONE (12:37)
[2019-12-13 13:25] LABS: Ferritin 148.7 ng/mL (8-388)
[2019-12-13 13:42] LABS: Blood Morphology Comment NOT SEEN (NOT SEEN); Platelet Estimate ADEQ
[2019-12-13 14:18] LABS: RBC Red Blood Cell Count 2.55 M/uL (3.86-4.86)
--- NOTE | 2019-12-13 14:46 | RAD REPORT ---
EXAM DESCRIPTION: CT - Abdomen Pelvis Wo Contrast - 12/13/2019 2:31 pm CLINICAL HISTORY: Abdominal pain. Low Hemoglobin COMPARISON: Abdomen Pelvis W Contrast dated 08/19/2017 TECHNIQUE: CT imaging of the abdomen and pelvis was performed without contrast. Solid organ, bowel a nd vascular assessment is limited due to lack of IV and oral contrast. All CT scans are performed using dose optimization technique as appropriate and may include automated exposure control or mA/KV adjustment according to patient size. FINDINGS: Small bilateral pleural effusions.Small hiatal hernia. The liver, spleen, pancreas, adrenal glands and kidneys are within normal limits for a limited non-co ntrast examination. No bowel obstruction, free air, free fluid or abscess. Small fat containing umbilical hernia. The guy endix is normal. Multilevel degenerative spondylosis of the lumbar spine. IMPRESSION: No acute intra-abdominal or pelvic findings. A limited non-contrast examination was performed as detailed.
[2019-12-13] MEDS: VANCOMYCIN/NS 1 gm 1 GM/250 ML BAG IV SCH (17:00)
[2019-12-13] MEDS: ACETAMINOPHEN 500 MG TAB PO PRN (17:06)
--- NOTE | 2019-12-13 17:49 | P.CNS ---
Date of Consult: 12/13/19 Subjective: Patient is a 69-year-old female who presents with right ankle swelling and pain and low-grade fever. Patient reports taking no fall but unsure exactly when. Patient found to have fever, leukocytosis and cellulitis which I have been consulted for. Patient examined at bedside. Past medical/surgical history: Hypertrophic cardiomyopathy status post septal alcohol ablation 4 years ago, history of chronic AFib, hypertension, alcoholism Family history: Noncontributory Social history: Chronic alcoholism Allergies: Penicillin Active Medications Acetaminophen (Tylenol -Extra Strength) 1,000 mg PO Q4H PRN PRN Reason: if temp>100 Stop: 01/12/20 17:01 Last Admin: 12/13/19 17:06 Dose: 1,000 mg Documented by: Amiodarone HCl (Cordarone Tab) 200 mg PO DAILY [facility] Stop: 01/12/20 09:01 Last Admin: 12/13/19 09:00 Dose: Not Given Documented by: Atorvastatin Calcium (Lipitor) 20 mg PO BEDTIME [facility] Stop: 01/12/20 21:01 Fentanyl Citrate (Sublimaze) 50 mcg IV Q4H PRN PRN Reason: Pain scale 8-10 (Severe) Stop: 01/12/20 06:22 Sodium Chloride (Ns 1000 Ml Ivbag) 1,000 mls @ 100 mls/hr IV .Q10H [facility] Stop: 01/12/20 02:01 Last Admin: 12/13/19 12:57 Dose: 1,000 mls Documented by: Vancomycin HCl (Vancomycin 1 Gm/250 Ml Ns Ivpb) 1 gm in 250 mls @ 250 mls/hr IV Q18H [facility] Stop: 01/12/20 18:01 Last Admin: 12/13/19 17:00 Dose: 250 mls Documented by: Clindamycin Phosphate 900 mg/ (Sodium Chloride) 56 mls @ 100 mls/hr IV Q8HR [facility]; Protocol Stop: 01/12/20 10:05 Last Admin: 12/13/19 17:01 Dose: 56 mls Documented by: Folic Acid 1 mg/ Multivitamins 10 ml/ Thiamine HCl 100 mg/Sodium Chloride 1,011.2 mls @ 100 mls/hr IV DAILY [facility] Stop: 01/13/20 09:01 Lorazepam (Ativan) 1 mg IV Q4H PRN PRN Reason: ANXIETY Stop: 01/12/20 01:49 Lorazepam (Ativan) 1 mg IV Q6H MARY Stop: 01/12/20 11:01 Last Admin: 12/13/19 16:55 Dose: 1 mg Documented by: Nebivolol (Bystolic) 20 mg PO DAILY MARY Stop: 01/12/20 09:01 Last Admin: 12/13/19 09:00 Dose: Not Given Documented by: Ondansetron HCl (Zofran) 4 mg IV Q4H PRN PRN Reason: NAUSEA / VOMITING Stop: 01/12/20 05:50 Last Admin: 12/13/19 06:12 Dose: 4 mg Documented by: Sodium Chloride (Normal Saline Flush) 10 ml IV BID [facility] Stop: 01/12/20 09:01 Last Admin: 12/13/19 09:00 Dose: Not Given Documented by: Verapamil HCl (Calan Sr) 180 mg PO DAILY [facility] Stop: 01/12/20 09:01 Last Admin: 12/13/19 09:00 Dose: Not Given Documented by: ROS: CV: Denies chest pain RESP: denies shortness of breath, cough : Reports some burning with urination GI: Denies nausea, diarrhea MSK: Reports ambulatory without assistance Objective: Temp Pulse Resp BP Pulse Ox 100.5 F 120 H 18 110/66 93 12/13/19 17:06 12/13/19 16:00 12/13/19 16:00 12/13/19 16:00 12/13/19 16:00 Laboratory Data (last 24 hrs) 12/12/19 23:50: PT 15.2 H, INR 1.29 12/12/19 23:50: WBC 14.4 H D, Hgb 8.0 L D, Hct 23.7 L D, Plt Count 224 D 12/12/19 23:50: Sodium 133 L, Potassium 3.1 L, BUN 19 H, Creatinine 0.61, Glucose 89, Magnesium 1.7 L D, Total Bilirubin 0.9, AST 19, ALT 15, Alkaline Phosphatase 56 Ankle xray 12/11: EXAM DESCRIPTION: RAD - Ankle Right 3 View - 12/13/2019 12:03 am CLINICAL HISTORY: PAIN COMPARISON: No comparisons FINDINGS: No fracture, dislocation or periosteal reaction. No joint effusion seen. Moderate-sized plantar spur is present. Arterial calcifications present. There is spurring or focal calcification along the medial margin of the talus 1 centimeter below the medial malleolus. The patient has soft tissue swelling along the medial aspect of the joint. No air or foreign body in the soft ti ssues. IMPRESSION: Soft tissue swelling and mild for age degenerative change right ankle. ROS: General: Lethargic, lying in bed CV: S1, S2 RESP: Good breath sounds ABD: Nontender, bowel sounds present Extremities: Left lower extremity cool to touch and weak pedal pulse, Right lower extremity with swelling and 2+ pedal pulse Skin: Right ankle with erythema, warmth and swelling Assessment and plan: Leukocytosis Fevers C/O dysuria, UA negative Blood cultures pending Right ankle cellulitis Currently on Clindamycin and Vancomycin Recommend to add IV Levaquin 500mg Q8hr Will need total of 2 weeks of antibiotics Will continue to monitor, will reevaluate again after cultures are back Thank you for consult Patient discussed with Dr. Theodore
[2019-12-13] MEDS ORDERED: EPINEPHrine 1 MG/10 ML SYR ONE (18:15)
[2019-12-13] MEDS: Levofloxacin500mg IV 500 MG/100 ML BAG IV SCH (18:40)
[2019-12-13] MEDS ORDERED: NA CHLORIDE 0.9% IV SCH (19:00)
[2019-12-13] MEDS ORDERED: VANCOMYCIN IV SCH (19:00)
--- NOTE | 2019-12-13 19:35 | ER ---
Nurse's Notes [facility] Name: Lucie Maldonado Age: 69 yrs Sex: Female : 1950 Arrival Date: 12/12/2019 Time: 23:15 Bed 2 Private MD: Diagnosis: Cellulitis right ankle. Fever. Elevated Troponin Presentation: 12/11 23:18 Chief complaint: Patient states: Pt complaining of pain of fever, right ankle pain and ea swelling. Family reported temp was 100.4 prior to EMS arrival and was medicated at 2200 with Tylenol by family. Coronavirus screen: Proceed with normal triage. Ebola Screen: No symptoms or risks identified at this time. Initial Sepsis Screen: Does the patient meet any 2 criteria? HR > 90 bpm. Does the patient have a suspected source of infection? Yes: Bone or joint infection. Risk Assessment: Do you want to hurt yourself or someone else? Patient reports no desire to harm self or others. Onset of symptoms was December 12, 2019. 23:18 Method Of Arrival: EMS: [facility] ea 23:18 Acuity: CECILIA 3 ea Historical: - Allergies: 23:26 PENICILLINS; ea - Home Meds: 23:26 verapamil 180 mg oral TbER 1 tab 2 times per day [Active]; Bystolic 20 mg oral tab 1 ea tab [Active]; Eliquis oral oral [Active]; ezetimibe oral oral 1 tab once daily [Active]; - PMHx: 23:26 cardiomyopathy; High Cholesterol; COPD; Hypertension; ea - Immunization history:: Adult Immunizations up to date. - Social history:: Smoking status: Patient denies any tobacco usage or history of. Screenin:20 Abuse screen: Denies threats or abuse. Denies injuries from another. Nutritional mg2 screening: No deficits noted. Tuberculosis screening: No symptoms or risk factors identified. Fall Risk Fall in past 12 months (25 points). IV access (20 points). Gait- Weak (10 pts.). Mental Status- Oriented to own ability (0 pts). Assessment: 23:20 General: Appears in no apparent distress. comfortable, Behavior is calm, cooperative. mg2 Pain: Complains of pain in right leg. Neuro: Level of Consciousness is awake, alert, obeys commands, Oriented to person, place, time, situation. Cardiovascular: Capillary refill < 3 seconds Patient's skin is warm and dry. Respiratory: Airway is patent Respiratory effort is even, unlabored, Respiratory pattern is regular, symmetrical. GI: No signs and/or symptoms were reported involving the gastrointestinal system. : No signs and/or symptoms were reported regarding the genitourinary system. EENT: No signs and/or symptoms were reported regarding the EENT system. Derm: redness and swelling in the right ankle. Musculoskeletal: Circulation, motion, and sensation intact. Capillary refill < 3 seconds, shaking note in the left ankle. 12/12 01:16 Reassessment: Patient and/or family updated on plan of care and expected duration. Pain ea level reassessed. Patient is alert, oriented x 3, equal unlabored respirations, skin warm/dry/pink. 01:29 Reassessment: Patient appears in no apparent distress at this time. Patient and/or mg2 family updated on plan of care and expected duration. Pain level reassessed. Patient is alert, oriented x 3, equal unlabored respirations, skin warm/dry/pink. patient informed about the plan for admission and she agreed. 02:55 Reassessment: Patient and/or family updated on plan of care and expected duration. Pain ea level reassessed. Patient is alert, oriented x 3, equal unlabored respirations, skin warm/dry/pink. Report given to receiving nurse on fourth floor. Vital Signs: 12/11 23:18 BP 96 / 64; Pulse 102; Resp 22; Temp 99.6; Pulse Ox 99% ; Weight 55.34 kg; Height 5 ft. ea 3 in. (160.02 cm); Pain 9/10; 12/12 00:03 BP 85 / 52; Pulse 105; Resp 20; Pulse Ox 100% on R/A; mg2 01:29 BP 85 / 58; Pulse 101; Resp 19; Pulse Ox 99% on R/A; ea 02:35 BP 102 / 63; Pulse 102 LA; Resp 18; Temp 100(TE); Pulse Ox 100% on R/A; mg2 12/11 23:18 Body Mass Index 21.61 (55.34 kg, 160.02 cm) ea ED Course: 12/11 23:15 Patient arrived in ED. ds1 23:18 Noy Martines, ZAIRA is Primary Nurse. ea 23:20 No provider procedures requiring assistance completed. Maintain EMS IV. Dressing mg2 intact. Good blood return noted. Site clean \T\ dry. Gauge \T\ site: 20 \T\ RAC. 23:22 Pramod Espinal MD is Attending Physician. pkl 23:22 Triage completed. ea 23:22 Arm band placed on right wrist. Patient placed in an exam room, on a stretcher, on ea pulse oximetry. 23:23 Patient has correct armband on for positive identification. Bed in low position. Call ea light in reach. Side rails up X2. 12/12 00:03 XRAY Chest (1 view) In Process Unspecified. EDMS 00:08 Ankle Right 3 View XRAY In Process Unspecified. EDMS 00:25 Straight cath inserted, using sterile technique, 16 Fr. Specimen obtained. Patient mg2 tolerated well. 01:00 Efe Hernandez MD is Hospitalizing Provider. pkl 01:25 Inserted saline lock: 22 gauge in left forearm, using aseptic technique. mg2 01:29 Patient admitted, IV remains in place. mg2 Administered Medications: 12/11 23:44 Drug: Zofran (Ondansetron) 4 mg Route: IVP; Site: right antecubital; mg2 12/12 01:00 Follow up: Response: No adverse reaction mg2 12/11 23:45 Drug: morphine 2 mg {Note: given 1 mg only.} Route: IVP; Site: right antecubital; mg2 12/12 01:00 Follow up: Response: No adverse reaction mg2 00:05 Drug: NS 0.9% 500 ml Route: IV; Rate: bolus; Site: right antecubital; mg2 01:01 Follow up: Response: No adverse reaction; IV Status: Completed infusion; IV Intake: mg2 500ml 01:00 Drug: NS 0.9% 250 ml Route: IV; Rate: bolus; Site: right antecubital; mg2 02:37 Follow up: Response: No adverse reaction; IV Status: Completed infusion; IV Intake: mg2 250ml 01:26 Drug: K-Dur 40 mEq Route: PO; ea 02:37 Follow up: Response: No adverse reaction mg2 01:26 Drug: Magnesium Sulfate 1 grams Route: IVPB; Infused Over: 1 hrs; Site: right ea antecubital; 01:26 Drug: vancoMYCIN 1 grams Route: IVPB; Infused Over: 2 hrs; Site: left forearm; ea 02:09 Drug: NS 0.9% 1000 ml Route: IV; Rate: 100 ml/hr; Site: right antecubital; mg2 02:37 Follow up: Response: No adverse reaction; IV Status: Infusion continued upon admission mg2 Intake: 01:01 IV: 500ml; Total: 500ml. mg2 02:37 IV: 250ml; Total: 750ml. mg2 Outcome: 01:01 Decision to Hospitalize by Provider. pkl 01:30 Instructed on the need for admit, Demonstrated understanding of instructions. ea 03:04 Condition: stable ea 03:08 Patient left the ED. sg Signatures: Dispatcher [employer] EDMS Wellington Sharpe RN RN sg Pramod Espinal MD MD pkl Sanford, Demi ds1 Noy Martines RN RN ea Gardose, Michele, RN RN mg2 Corrections: (The following items were deleted from the chart) 02:36 02:35 BP 94 / 63; Pulse 102bpm; Left ArmResp 18bpm; Pulse Ox 100% RA; Temp 100F mg2 Temporal; mg2
--- NOTE | 2019-12-13 19:35 | EDPHYS ---
Physician Documentation [facility] Name: Lucie Maldonado Age: 69 yrs Sex: Female : 1950 Arrival Date: 12/12/2019 Time: 23:15 Bed 2 Private MD: ED Physician Pramod Espinal HPI: 12/12 00:17 This 69 yrs old Female presents to ER via EMS with complaints of Fever. pkl 00:17 The patient presents with pain, that is acute, swelling. The complaints affect the pkl right ankle. Onset: The symptoms/episode began/occurred today. Associated signs and symptoms: Pertinent positives: fever. Historical: - Allergies: 12/11 23:26 PENICILLINS; ea - Home Meds: 23:26 verapamil 180 mg oral TbER 1 tab 2 times per day [Active]; Bystolic 20 mg oral tab 1 ea tab [Active]; Eliquis oral oral [Active]; ezetimibe oral oral 1 tab once daily [Active]; - PMHx: 23:26 cardiomyopathy; High Cholesterol; COPD; Hypertension; ea - Immunization history:: Adult Immunizations up to date. - Social history:: Smoking status: Patient denies any tobacco usage or history of. ROS: 12/12 00:17 Eyes: Negative for injury, pain, redness, and discharge, ENT: Negative for injury, pkl pain, and discharge, Neck: Negative for injury, pain, and swelling, Cardiovascular: Negative for chest pain, palpitations, and edema, Respiratory: Negative for shortness of breath, cough, wheezing, and pleuritic chest pain, Abdomen/GI: Negative for abdominal pain, nausea, vomiting, diarrhea, and constipation, Back: Negative for injury and pain, : Negative for injury, bleeding, discharge, and swelling, Neuro: Negative for headache, weakness, numbness, tingling, and seizure. MS/extremity: Positive for erythema, pain, swelling, tenderness, warmth, of the right ankle. Exam: 00:19 Head/Face: Normocephalic, atraumatic. Eyes: Pupils equal round and reactive to light, pkl extra-ocular motions intact. Lids and lashes normal. Conjunctiva and sclera are non-icteric and not injected. Cornea within normal limits. Periorbital areas with no swelling, redness, or edema. ENT: Nares patent. No nasal discharge, no septal abnormalities noted. Tympanic membranes are normal and external auditory canals are clear. Oropharynx with no redness, swelling, or masses, exudates, or evidence of obstruction, uvula midline. Mucous membranes moist. Neck: Trachea midline, no thyromegaly or masses palpated, and no cervical lymphadenopathy. Supple, full range of motion without nuchal rigidity, or vertebral point tenderness. No Meningismus. Chest/axilla: Normal chest wall appearance and motion. Nontender with no deformity. No lesions are appreciated. Cardiovascular: Regular rate and rhythm with a normal S1 and S2. No gallops, murmurs, or rubs. Normal PMI, no JVD. No pulse deficits. Respiratory: Lungs have equal breath sounds bilaterally, clear to auscultation and percussion. No rales, rhonchi or wheezes noted. No increased work of breathing, no retractions or nasal flaring. Abdomen/GI: Soft, non-tender, with normal bowel sounds. No distension or tympany. No guarding or rebound. No evidence of tenderness throughout. Back: No spinal tenderness. No costovertebral tenderness. Full range of motion. 00:19 Skin: cellulitis, that is moderate, on the right ankle. 00:19 Neuro: Orientation: is normal, Mentation: is normal, Cranial nerves: grossly normal, Motor: is normal. Vital Signs: 12/11 23:18 BP 96 / 64; Pulse 102; Resp 22; Temp 99.6; Pulse Ox 99% ; Weight 55.34 kg; Height 5 ft. ea 3 in. (160.02 cm); Pain 9/10; 12/12 00:03 BP 85 / 52; Pulse 105; Resp 20; Pulse Ox 100% on R/A; mg2 01:29 BP 85 / 58; Pulse 101; Resp 19; Pulse Ox 99% on R/A; ea 02:35 BP 102 / 63; Pulse 102 LA; Resp 18; Temp 100(TE); Pulse Ox 100% on R/A; mg2 12/11 23:18 Body Mass Index 21.61 (55.34 kg, 160.02 cm) ea MDM: 12/11 23:22 Patient medically screened. pkl 12/12 00:59 Data reviewed: vital signs, nurses notes, lab test result(s), EKG, radiologic studies, pkl plain films. ED course: Talked to Dr. Hernandez, admiit. 12/11 23:31 Order name: Basic Metabolic Panel; Complete Time: 00:56 pkl 12/11 23:31 Order name: CBC with Diff; Complete Time: 02:47 pkl 12/11 23:31 Order name: LFT's; Complete Time: 00:56 pkl 12/11 23:31 Order name: Magnesium; Complete Time: 00:56 pkl 12/11 23:31 Order name: NT PRO-BNP; Complete Time: 00:56 pkl 12/11 23:31 Order name: PT-INR; Complete Time: 00:56 pkl 12/11 23:31 Order name: Troponin (emerg Dept Use Only); Complete Time: 00:56 pkl 12/11 23:31 Order name: XRAY Chest (1 view) pkl 12/11 23:31 Order name: Blood Culture Adult (2) pkl 12/11 23:31 Order name: Lactate; Complete Time: 00:56 pkl 12/11 23:31 Order name: Procalcitonin; Complete Time: 02:47 pkl 12/11 23:31 Order name: Sed Rate; Complete Time: 02:47 pkl 12/12 00:34 Order name: Manual Differential; Complete Time: 02:47 EDMS 12/12 00:37 Order name: Urine Dipstick--Ancillary (enter results); Complete Time: 00:56 mt 12/11 23:31 Order name: EKG; Complete Time: 23:32 pkl 12/11 23:31 Order name: Cardiac monitoring; Complete Time: 23:32 pkl 12/11 23:31 Order name: EKG - Nurse/Tech; Complete Time: 23:41 pkl 12/11 23:31 Order name: IV Saline Lock; Complete Time: 23:32 pkl 12/11 23:31 Order name: Labs collected and sent; Complete Time: 23:32 pkl 12/11 23:31 Order name: O2 Per Protocol; Complete Time: 23:32 pkl 12/11 23:31 Order name: O2 Sat Monitoring; Complete Time: 23:32 pkl 12/11 23:31 Order name: Ankle Right 3 View XRAY pkl Administered Medications: 12/11 23:44 Drug: Zofran (Ondansetron) 4 mg Route: IVP; Site: right antecubital; mg2 12/12 01:00 Follow up: Response: No adverse reaction mg2 12/11 23:45 Drug: morphine 2 mg {Note: given 1 mg only.} Route: IVP; Site: right antecubital; mg2 12/12 01:00 Follow up: Response: No adverse reaction mg2 00:05 Drug: NS 0.9% 500 ml Route: IV; Rate: bolus; Site: right antecubital; mg2 01:01 Follow up: Response: No adverse reaction; IV Status: Completed infusion; IV Intake: mg2 500ml 01:00 Drug: NS 0.9% 250 ml Route: IV; Rate: bolus; Site: right antecubital; mg2 02:37 Follow up: Response: No adverse reaction; IV Status: Completed infusion; IV Intake: mg2 250ml 01:26 Drug: K-Dur 40 mEq Route: PO; ea 02:37 Follow up: Response: No adverse reaction mg2 01:26 Drug: Magnesium Sulfate 1 grams Route: IVPB; Infused Over: 1 hrs; Site: right ea antecubital; 01:26 Drug: vancoMYCIN 1 grams Route: IVPB; Infused Over: 2 hrs; Site: left forearm; ea 02:09 Drug: NS 0.9% 1000 ml Route: IV; Rate: 100 ml/hr; Site: right antecubital; mg2 02:37 Follow up: Response: No adverse reaction; IV Status: Infusion continued upon admission mg2 Disposition: 12/13/19 01:01 Hospitalization ordered by Efe Hernandez for Inpatient Admission. Preliminary diagnosis is Cellulitis right ankle. Fever. Elevated Troponin. - Bed requested for Telemetry/MedSurg (Inpatient). - Status is Inpatient Admission. sg - Condition is Stable. - Problem is new. - Symptoms are unchanged. Signatures: Dispatcher [employer] EDWellington Mayes RN RN sg Lam, Pin, MD MD pkl Garcia, Cindy, RN RN Noy Barboza RN RN ea Gardose, Michele, RN RN mg2 Corrections: (The following items were deleted from the chart) 01:40 01:01 Hospitalization Ordered by Efe Hernandez MD for Inpatient Admission. Preliminary cg diagnosis is Cellulitis right ankle. Fever. Elevated Troponin. Bed requested for Telemetry/MedSurg (Inpatient). Status is Inpatient Admission. Condition is Stable. Problem is new. Symptoms are unchanged. pkl 03:08 01:40 12/13/2019 01:01 Hospitalization Ordered by Efe Hernandez MD for Inpatient sg Admission. Preliminary diagnosis is Cellulitis right ankle. Fever. Elevated Troponin. Bed requested for Telemetry/MedSurg (Inpatient). Status is Inpatient Admission. Condition is Stable. Problem is new. Symptoms are unchanged.
--- NOTE | 2019-12-13 19:46 | PN ---
Date of Progress Note: 12/13/2019 The patient's status has not improved. In fact, it may have progressed somewhat into the more seriou s stage. She has had a repeat CBC which still shows her hemoglobin in the 8-point range compared to 12 less than a week ago and on further questioning, patient does admit to having significant black st ools. In view of this and her history of alcoholism, probability of her needing an EGD is significan t and therefore COVID virus will be tested for. A CAT scan of her abdomen and pelvis will be obtaine d today. As far as the infectious prior to visit situation, it is possible that she is developing a septic joint. We will consult with Orthopedic Surgery for this. Clindamycin was added to the regime n as well as the vancomycin as patient's white count considerably elevated, started at 15,000 is now 20,000. She has also had some mental changes, possibly secondary to early alcohol withdrawal, althou gh she states she has not had any in the past 8 or 9 days. However, according to her son, her sreekanth ne has not been back to normal mentally since her episode of hospitalization for the DTs in May of last year. Infectious Disease will also be consulted. In view of her underlying cardiac status a nd pulmonary status, I feel it is crocker to infuse or release 1 unit of blood and this will happen some times today. Discussion was held with Cardiology here and dicer machine operator in [place] as far as the cath eterization at the moment is to be put on hold, once the other issues have been stabilized, perhaps, it will be done on this admission. HR/MODL Voice ID: [id number] Report ID: [id number]
[2019-12-13] MEDS ORDERED: ATORVASTATIN 20 MG TAB PO SCH (21:00)
[2019-12-13] MEDS ORDERED: ALBUTEROL 2.5 MG/3 ML NEB SOL NEB PRN (22:56)
[2019-12-13] MEDS ORDERED: IPRATROPIUM BROM 0.5MG/2.5ML NEB PRN (22:56)
[2019-12-13] MEDS ORDERED: SODIUM CHLORIDE 0.9% 10ML INJ IV PRN (23:33)
[2019-12-13 23:36] LABS: Hematocrit 24.3 % (36.0-45.0)
[2019-12-14] MEDS: LORazepam 2 MG/ML VIAL IV PRN ×2 (00:03→08:19)
[2019-12-14] MEDS: PANTOPRAZOLE 40 MG INJ IVP SCH ×2 (00:03→08:20)
[2019-12-14] MEDS: CLINDAMYCIN INJ 900 MG in NA CHLORIDE 0.9% 50 ML IV SCH ×3 (01:06→17:12)
--- NOTE | 2019-12-14 03:03 | CON ---
Date of Consultation: 12/13/2019 Reason For Consultation: This is my first time seeing this patient to my knowledge. She is a 69-yea r-old female, who was apparently admitted for pain related to the right ankle as well as other medica l conditions. I am consulted by Dr. Hernandez and she has a white count of 20,000, which apparently up from 13,000 yesterday with very significant pain related to her right ankle. This appears to be the most likely source of the increased white count and consistent with cellulitis; however, would like for me to evaluate her for possible joint or bony involvement. Review of x-rays reveal no fracture o r dislocation. There is soft tissue swelling, but no apparent bony changes on the x-ray. Physical Examination: She is lying in her bed. She has a foot propped up on a pillow. There is some redness; although, I would not say it is extremely dense. She does have pain with any palpation of her ankle including ge ntly brushing against her skin. While holding any traction on the skin to a minimum, gentle range of motion of the ankle including subtalar motion as well as dorsiflexion and plantar flexion does not c ause any significant increase in pain. She really has pain with the palpation of the skin. The ankl e joint itself did not appear to have a very significant effusion; although, it is often times diffic ult to tell in an ankle. Assessment And Plan: I feel that most likely this is a counter sales representative of cellulitis and not represen tative of underlying abscess or septic arthritis. I think it would probably be a significant mistake to try to aspirate the ankle joint through this area of cellulitis and hopefully, antibiotics will b e able to effect a good turnaround. If she continues to have pain or problems or if she develops an abscess or develops any crepitation of the skin, this could be a more serious problem, but at this po int, hopefully she will make a relatively rapid turnaround with IV antibiotics. Generally in this ca se, I would use clindamycin, vancomycin, and Levaquin as broad-spectrum, but do have an Infectious Di sease consultation which would probably be recommending antibiotic regimen and treatment. Otherwise, elevation is good and I will be discussing these findings with Dr. Hernandez. SE/MODL Voice ID: [id number] Report ID: [id number]
[2019-12-14] MEDS: NA CHLORIDE 0.9% 1,000 ML IV SCH ×2 (05:05→08:00)
[2019-12-14 06:45] LABS: Absolute Lymphocytes (CBC) 0.5 K/uL (0.7-4.9); Basophils % 0.2 % (0-1.3); Hematocrit 24.7 % (36.0-45.0); Lymphocytes % 4.8 % (15.3-44.8); MPV 7.5 fL (7.6-11.3); RBC Red Blood Cell Count 2.48 M/uL (3.86-4.86)
[2019-12-14 07:02] LABS: BUN Blood Urea Nitrogen 19 mg/dL (7-18); Bicarbonate 21 mmol/L (21-32); Glucose Level 103 mg/dL (74-106); Potassium 4.4 mmol/L (3.5-5.1); Sodium Level 131 mmol/L (136-145)
[2019-12-14] MEDS: AMIODARONE HCL 200 MG TAB PO SCH (08:20)
[2019-12-14] MEDS: VERAPAMIL SR 180 MG TAB PO SCH (08:20)
[2019-12-14] MEDS: NEBIVOLOL HCL 20 MG TABLET PO SCH (08:21)
[2019-12-14] MEDS ORDERED: NEBIVOLOL HCL 20 MG TABLET PO SCH (09:00)
[2019-12-14] MEDS ORDERED: FOLIC ACID 1 MG, MULTIVITAMINS INJ 10 ML, THIAMINE HCL 100 MG in NA CHLORIDE 0.9% 1,000 ML IV SCH (09:00)
[2019-12-14] MEDS ORDERED: VERAPAMIL HCL PO SCH (09:00)
[2019-12-14] MEDS ORDERED: AMIODARONE HCL 200 MG TAB PO SCH (09:00)
[2019-12-14 09:47] VITALS: O2SAT 98
[2019-12-14] MEDS ORDERED: BISACODYL 10 MG RECTAL SUPP PR ONE (10:08)
--- NOTE | 2019-12-14 10:45 | PN ---
Date of Progress Note: 12/14/2019 History: Late last night the patient was transferred to ICU due to septic condition and hypotension, which was rather marked probably secondary to the sepsis and/or the Ativan, which was necessary to c ontrol her delirium tremens. When she was in the ICU, a midline was placed. The patient did receive a unit of blood where it made no difference in her H and H, which she either tells me that she is st ill actively bleeding and/or was dehydrated or a combination of both. Did have ketonuria in her urin e. The other issue was her mental status today, is still markedly confused and still has some tremor -like activity when the Ativan wears off. I suspect there is still some element of DTs. Her COPD arreola s also flared somewhat. She has required her breathing treatments, which does give her good response . Her lungs are clear, awaiting the echo, her COVID was negative, so when it is available, we will d etermine the right time, and she could have an EGD within the next 24-48 hours depending on H and H, which will be followed serially. Her foot has improved both clinically and symptomatically. Her whi te count dramatically improved as well. We will continue to monitor in ICU at least during the day t estefanía. I will discuss the case further with Gastroenterology. HR/MODL Voice ID: [id number] Report ID: [id number]
[2019-12-14 11:42] LABS: Hematocrit 26.2 % (36.0-45.0)
[2019-12-14] MEDS: VANCOMYCIN/NS 1 gm 1 GM/250 ML BAG IV SCH (11:53)
[2019-12-14] MEDS ORDERED: LORazepam 2 MG/ML VIAL IV PRN (13:36)
[2019-12-14] MEDS ORDERED: PANTOPRAZOLE INJ 80 MG in NA CHLORIDE 0.9% 250 ML IV SCH (15:00)
[2019-12-14] MEDS ORDERED: NA CHLORIDE 0.9% 500 ML IV ONE (15:00)
--- NOTE | 2019-12-14 15:00 | P.PN ---
Date of Service: 12/14/19 Subjective: Patient is a 69-year-old female who presents with right ankle swelling and pain and low-grade fever. Patient reports taking no fall but unsure exactly when. Patient found to have fever, leukocytosis and cellulitis which I have been consulted for. Patient examined at bedside. Past medical/surgical history: Hypertrophic cardiomyopathy status post septal alcohol ablation 4 years ago, history of chronic AFib, hypertension, alcoholism Family history: Noncontributory Social history: Chronic alcoholism Allergies: Penicillin Active Medications Acetaminophen (Tylenol -Extra Strength) 1,000 mg PO Q4H PRN PRN Reason: if temp>100 Stop: 01/12/20 17:01 Last Admin: 12/13/19 17:06 Dose: 1,000 mg Documented by: Amiodarone HCl (Cordarone Tab) 200 mg PO DAILY [facility] Stop: 01/12/20 09:01 Last Admin: 12/13/19 09:00 Dose: Not Given Documented by: Atorvastatin Calcium (Lipitor) 20 mg PO BEDTIME [facility] Stop: 01/12/20 21:01 Fentanyl Citrate (Sublimaze) 50 mcg IV Q4H PRN PRN Reason: Pain scale 8-10 (Severe) Stop: 01/12/20 06:22 Sodium Chloride (Ns 1000 Ml Ivbag) 1,000 mls @ 100 mls/hr IV .Q10H [facility] Stop: 01/12/20 02:01 Last Admin: 12/13/19 12:57 Dose: 1,000 mls Documented by: Vancomycin HCl (Vancomycin 1 Gm/250 Ml Ns Ivpb) 1 gm in 250 mls @ 250 mls/hr IV Q18H [facility] Stop: 01/12/20 18:01 Last Admin: 12/13/19 17:00 Dose: 250 mls Documented by: Clindamycin Phosphate 900 mg/ (Sodium Chloride) 56 mls @ 100 mls/hr IV Q8HR [facility]; Protocol Stop: 01/12/20 10:05 Last Admin: 12/13/19 17:01 Dose: 56 mls Documented by: Folic Acid 1 mg/ Multivitamins 10 ml/ Thiamine HCl 100 mg/Sodium Chloride 1,011.2 mls @ 100 mls/hr IV DAILY [facility] Stop: 01/13/20 09:01 Lorazepam (Ativan) 1 mg IV Q4H PRN PRN Reason: ANXIETY Stop: 01/12/20 01:49 Lorazepam (Ativan) 1 mg IV Q6H [facility] Stop: 01/12/20 11:01 Last Admin: 12/13/19 16:55 Dose: 1 mg Documented by: Nebivolol (Bystolic) 20 mg PO DAILY [facility] Stop: 01/12/20 09:01 Last Admin: 12/13/19 09:00 Dose: Not Given Documented by: Ondansetron HCl (Zofran) 4 mg IV Q4H PRN PRN Reason: NAUSEA / VOMITING Stop: 01/12/20 05:50 Last Admin: 12/13/19 06:12 Dose: 4 mg Documented by: Sodium Chloride (Normal Saline Flush) 10 ml IV BID [facility] Stop: 01/12/20 09:01 Last Admin: 12/13/19 09:00 Dose: Not Given Documented by: Verapamil HCl (Calan Sr) 180 mg PO DAILY [facility] Stop: 01/12/20 09:01 Last Admin: 12/13/19 09:00 Dose: Not Given Documented by: ROS: CV: Denies chest pain RESP: denies shortness of breath, cough : Reports some burning with urination GI: Denies nausea, diarrhea MSK: Reports ambulatory without assistance Objective: Temp Pulse Resp BP Pulse Ox 99.4 F 73 24 H 71/57 L 92 12/14/19 12:00 12/14/19 14:00 12/14/19 14:00 12/14/19 14:00 12/14/19 14:00 Labs: Na 131, K 4.4, lactic acid 2.7, WBC 9.5, Hgb 8.7, Hct 26.2, plt 217 Ankle xray 12/11: EXAM DESCRIPTION: RAD - Ankle Right 3 View - 12/13/2019 12:03 am CLINICAL HISTORY: PAIN COMPARISON: No comparisons FINDINGS: No fracture, dislocation or periosteal reaction. No joint effusion seen. Moderate-sized plantar spur is present. Arterial calcifications present. There is spurring or focal calcification along the medial margin of the talus 1 centimeter below the medial malleolus. The patient has soft tissue swelling along the medial aspect of the joint. No air or foreign body in the soft tissues. IMPRESSION: Soft tissue swelling and mild for age degenerative change right ankle. ROS: General: Lethargic, lying in bed CV: S1, S2 RESP: Good breath sounds ABD: Nontender, bowel sounds present Extremities: Left lower extremity cool to touch and weak pedal pulse, Right lower extremity with swelling and 2+ pedal pulse Skin: Right ankle with erythema, warmth and swelling Assessment and plan: Leukocytosis improved Fevers Blood cultures 12/11 show no growth to date Right ankle cellulitis improving Currently on Clindamycin and Vancomycin and Levaquin Will need total of 2 weeks of antibiotics Will continue to monitor Patient discussed with Dr. Theodore
[2019-12-14 15:12] LABS: Urine Appearance CLOUDY; Urine Bilirubin NEGATIVE (NEG); Urine Blood 3+ (NEG); Urine Color DK YELLOW; Urine Glucose NEGATIVE (NEG); Urine Protein TRACE (NEG); Urine pH 5.5 (5.0-7.0)
[2019-12-14 15:32] LABS: Urine Microscopic Reflex ORDER UMIC
[2019-12-14 15:36] LABS: Urine Bacteria 20-50 /HPF (<20); Urine Culture Reflex Order REFLEXED; Urine Mucus 1+ /HPF (NONE SEEN)
[2019-12-14] MEDS: ACETAMINOPHEN 500 MG TAB PO PRN (16:56)
--- NOTE | 2019-12-14 17:10 | RAD REPORT ---
EXAM DESCRIPTION: RAD - Chest Single View - 12/14/2019 4:26 pm CLINICAL HISTORY: Device placement PICC line placement . IMPRESSION: PICC line with its tip 1 centimeter into the right atrium
[2019-12-14 17:14] VITALS: TEMP 98.8
[2019-12-14] MEDS: Levofloxacin500mg IV 500 MG/100 ML BAG IV SCH (17:50)
[2019-12-14 18:07] VITALS: BP 83/63
[2019-12-14] MEDS ORDERED: EPINEPHrine 4 MG in NA CHLORIDE 0.9% 250 ML IV PRN (18:39)
[2019-12-14 19:04] LABS: Hematocrit 24.7 % (36.0-45.0)
--- NOTE | 2019-12-14 19:25 | EKG ---
Test Date: 2019-12-14 Test Time: 08:21:38 Operating Table Assembler: CANELO MEASUREMENT RESULTS: Intervals: Rate: 99 WV: 136 QRSD: 102 QT: 382 QTc: 490 [place]: P: -7 WV: 136 QRS: 42 T: 42 INTERPRETIVE STATEMENTS: Normal sinus rhythm Posterior infarct, age undetermined Abnormal ECG Compared to ECG 12/13/2019 08:58:26 Myocardial infarct finding now present Sinus tachycardia no longer present ST (T wave) deviation no longer present Electronically Signed On 12-14-19 19:23:57 CDT by Fracisco Randle
--- NOTE | 2019-12-15 07:13 | PN ---
Date of Progress Note: 12/14/2019 Ms. Maldonado was seen by my partner, Dr. Quiroz, and is followed by Dr. Hernandez for sepsis secondary to severe cellulitis. Overnight, she was transferred to the ICU because of possible sepsis. She is on IV antibiotics. She is having borderline hypotension with sinus tachycardia, asymptomatic from a cardiovascular standpoint. She does have an elevated troponin. She has anemia that has not responde d to blood transfusion. Guaiac positive. She is off anticoagulation. The case was discussed with Paulino Hernandez. I think we should not pursue a heart catheterization at this point. I think we should w ait for her sepsis and cellulitis to resolve completely before we can do this. I would prefer doing that as an outpatient. I agree with GI consultation. Patient is on amiodarone for history of atrial fibrillation. She is in sinus rhythm. She is also on verapamil and Norvasc, and I think we can sto p her verapamil for now, continue the amiodarone, continue the amlodipine. I will continue to follow her along with Dr. Hernandez. Echocardiogram that was done today showed normal ejection fraction, carole ral annular calcification, and aortic sclerosis with some mild tricuspid regurgitation, but normal ri ght ventricular systolic pressure. BROOKE/MINDI Voice ID: [id number] Report ID: [id number]
--- NOTE | 2019-12-15 08:35 | ECHO ---
HEIGHT: 5 ft 3 in WEIGHT: 124 lb 0 oz DATE OF STUDY: 12/14/[address]: Efe Hernandez MD 2-DIMENSIONAL: YES M.MODE: YES DOPPLER: YES COLOR FLOW: YES TDS: YES PORTABLE: YES DEFINITY: BUBBLE STUDY: DIAGNOSIS: EVALUATE, ELEVATED TROPONIN CARDIAC HISTORY: CATHERIZATION: NO SURGERY: NO PROSTHETIC VALVE: NO PACEMAKER: NO MEASUREMENTS (cm) DIASTOLIC (NORMALS) SYSTOLIC (NORMALS) IVSd (0.6-1.2) LA Diam (1.9-4.0) LVEF 50-55% LVIDd (3.5-5.7) LVIDs (2.0-3.5) %FS % LVPWd (0.6-1.2) Ao Diam (2.0-3.7) 2 DIMENSIONAL ASSESSMENT: RIGHT ATRIUM: NORMAL LEFT ATRIUM: NORMAL RIGHT VENTRICLE: NORMAL LEFT VENTRICLE: NORMAL TRICUSPID VALVE: NORMAL MITRAL VALVE: MITRAL ANNULAR CALCIFICATION PULMONIC VALVE: NORMAL AORTIC VALVE: SCLEROSIS PERICARDIAL EFFUSION: NONE AORTIC ROOT: NORMAL LEFT VENTRICULAR WALL MOTION: NORMAL DOPPLER/COLOR FLOW: MILD TRICUSPID REGURGITATION. NORMAL RIGHT VENTRICULAR SYSTOLIC PRESSURE. COMMENTS: MILD TRICUSPID REGURGITATION. NORMAL RIGHT VENTRICULAR SYSTOLIC PRESSURE. MITRAL ANNULAR CALCIFICATION. AORTIC SCLEROSIS. NORMAL LEFT VENTRICULAR SIZE AND FUNCTION. TECHNICALLY DIFFICULT STUDY. TECHNOLOGIST: KENNETH SOTO
[2019-12-15] MEDS ORDERED: NEBIVOLOL HCL 5 MG TAB PO SCH (09:00)
--- NOTE | 2019-12-17 20:06 | CON ---
Date of Consultation: 12/14/2019 Reason For Consultation: Anemia, melena, hypotension, status post MD. History Of Present Illness: Patient is a 69-year-old white female with history of chronic atrial fib rillation; hypertrophic cardiomyopathy, status post ablation 4 years ago; alcoholism; hypertension. Patient was in the hospital with chest pain and found to have elevated troponin I. Cardiology saw th e patient and had full workup. Patient also has cellulitis and was placed in ICU. Patient noted to have melena, on high-dose NSAIDs recently which is Aleve and is also on PPI since admission. Patient was on floor. Patient was transferred to ICU because of sepsis with progressive cellulitis o f extremities. She has hypotension. Also reported for having COPD. Cardiology is seen. Cardiac ca th had been put on hold according to the notes. Past Medical History: Significant for hypertension; alcohol abuse; hypertrophic cardiomyopathy; atri al fibrillation, status post ablation of heart. Allergies: PENICILLIN. Medications: See list. Social History: , 4 children. No tobacco. Positive alcohol, 1 to 2 bottles of wine per day . Family History: Father of coronary disease, myocardial infarction, CHF, also had a valve disord er that need to be repaired of his heart. Mother with GI bleed, possible stomach AVMs or other. Son was unclear as to what his grandmother had. Patient's mother had some type of bleeding from he r stomach. Review of Systems: Patient has possible melena. She has hypotension, cellulitis. She had a possible myocardial infarct ion as per chart review. Elevated troponin I of 1.72. Cardiology following. Denies any hematemesis , coffee-grounds emesis, hematochezia, hematuria, dysuria, polydipsia, or hemoptysis. No muscle ache s, joint aches, backaches. She is overweight, obese. Physical Examination: Vital Signs: Patient is 5 feet 3 inches, 224 pounds. She has a BMI of 30. She is obese. She has a temperature of 100.6 degrees Fahrenheit, pulse 112, respirations 24, blood pressure 116/57, O2 satur ation 97%. General: She is obese female lying in bed, in mild distress, somewhat disoriented. Possibly withdra wals. Son at bedside. Patient is somewhat calm. HEENT: Normocephalic, atraumatic. Anicteric. Pupils equal, round, and reactive to light. Extraocu lar movements intact. Oropharynx is clear. Neck: Supple. No masses. Respirations: Clear to auscultation bilaterally. Cardiac: Regular rate and rhythm. No gallops or rubs. Abdomen: Positive bowel sounds. Soft, nontender, nondistended, but somewhat obese. No peritoneal o r Renteria signs. No guarding. Extremities: No clubbing, cyanosis. 1+ edema. Neuro: Alert and oriented x1. Not able to answer questions well. Able to move all extremities. Laboratory Data: Patient has a white count of 9.5, hemoglobin 8.4, hematocrit 24.7, MCV of 99.4, lucretia telet count 217, polys 91%, lymphs 5%, monos 4%. Patient has a PT of 15.2, INR of 1.3. Patient has a sodium of 131, potassium 4.4, chloride 105, bicarb 21, BUN of 19, creatinine of 0.6, glucose 103, c alcium 8.0, troponin I of 1.54 and then 1.73 and 1.72. Total bilirubin 1.2, direct bilirubin 0.3, T of 29, ALT of 15, alkaline phosphatase 58, total protein 5.5, albumin 2.7, triglyceride 182, choles terol 217, LDL of 119, HDL 82, and B12 of 837. Urine 3+ blood, 2+ leukocyte esterase, 10 to 20 rbc's , 5 to 10 white blood cells, squamous epithelial cells less than 5, bacteria 20 to 50, mucus 1+. Ser um alcohol less than 10. CT abdomen and pelvis revealed no acute abnormalities. Chest x-ray on December 11 revealed baseline pro minent interstitial pattern could mask early viral infiltrates or other. Impression: 1.Anemia. Hemoglobin down to 8.4 with melena and high-dose NSAIDs recently as per RN's report and i nvestigate with EGD once patient is cardiopulmonary stable in ICU currently. 2.Hypotension, possibly secondary to sepsis and also poor cardiopulmonary status. 3.Cellulitis with sepsis. Temperature is up to 100.6 degrees Fahrenheit. White count on admission was 20.9 on December 12 and today is down at 9.5, on antibiotics. 4.Alcohol abuse, cirrhosis of the liver probably. 5.Myocardial infarction. Troponin I is elevated at 1.72 repeatedly, elevated above 1. Cardiology f ollowing. 6.History of hypertension, atrial fibrillation, hypertrophy, cardiomyopathy, and alcohol abuse, prob ably cirrhosis of the liver. Prognosis is guarded in this patient. Recommendation: 1.Proton pump inhibitor, IV drip. 2.EGD, cardiopulmonary stable. 3.Transfuse p.r.n. 4.Serial H and Hs. 5.DT precaution. 6.Benzodiazepines p.r.n. 7.Thiamine and folate. 8.Alcohol Anonymous or alcoholic rehab on discharge. JOSE/MINDI Voice ID: [id number] Report ID: [id number]
== END 2019-12-14 20:40 | disposition expired | DRG 871 ==
LOC: ER 23:13 → ERHOLD 12-13 01:09 → 4TH 12-13 02:55 → 3RD-ICU 12-13 22:00
PROVIDERS: ADMIT Family Medicine; ATTEND Family Medicine
PROC: 30233N1 Transfusion of Nonautologous Red Blood Cells into Peripheral Vein, Percutaneous Approach (ICD-10-PCS; 2019-12-13)
PROC: 02H633Z Insertion of Infusion Device into Right Atrium, Percutaneous Approach (ICD-10-PCS; principal; 2019-12-14)
DX: A41.9 Sepsis, unspecified organism (principal); I21.A1 Myocardial infarction type 2; L03.115 Cellulitis of right lower limb; I42.2 Other hypertrophic cardiomyopathy; K92.1 Melena; J44.9 Chronic obstructive pulmonary disease, unspecified; I10 Essential (primary) hypertension; R00.0 Tachycardia, unspecified; D64.9 Anemia, unspecified; F10.10 Alcohol abuse, uncomplicated; K70.30 Alcoholic cirrhosis of liver without ascites; Z20.828 Contact with and (suspected) exposure to other viral communicable diseases; Z88.0 Allergy status to penicillin; Z79.899 Other long term (current) drug therapy; Z79.01 Long term (current) use of anticoagulants
CPT/HCPCS: 36415; 36569; 51702; 71045; 74176; 80048; 80076; 80320; 81003; 81015; 82150; 82274; 82728; 83540; 83605; 83690; 83735; 83880; 84145; 84466; 84484; 84550; 85014; 85018; 85025; 85044; 85610; 85652; 86850; 86900; 86901; 87040; 87070; 87086; 87088; 87205; 93005; 93306; 99284; C9113; J0171; J1644; J2250; J2270; J2405; J3010; J3370; J3411; J3475; J7030; J7040; P9016; U0002